=== PATIENT | female | born 2000 | race Hispanic/Latino ===

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

== ENCOUNTER 2023-05-01 22:39 | Emergency (ER) | payer SELFPAY ==
--- OUTSIDE RECORDS SUMMARY | 2023-05-01 22:48 | XMS REPORT | Continuity of Care Document ---
:2000 Author Organization [facility] t Address [address] [place] [address] [address] [place] [address] Care Team Providers Name Role Phone Laney Jonas Primary Care Physician [phone] UNKNOWN, ATTENDING Attending Clinician Unavailable Laney Jonas Attending Clinician [phone] LANEY MÉNDEZ Attending Clinician Unavailable Doctor Unassigned, [place] Attending Clinician Unavailable [facility], [facility] Attending Clinician Unavailable DESHAWN TONG Attending Clinician Unavailable Angelita Anderson MD, [place] Attending Clinician [phone] Deshawn Tong MD Attending Clinician BHARATI BRUSH Attending Clinician Unavailable Bharati Brush MD Attending Clinician Ultrasound, [facility] Attending Clinician Unavailable Mendoza Romo MD Attending Clinician MENDOZA ROMO Attending Clinician Unavailable Wilmer Post MD Attending Clinician [phone] WILMER POST Attending Clinician Unavailable BARB HOUSE Attending Clinician Unavailable CASSANDRA VALLADARES Attending Clinician Unavailable 5, [facility] Usg Room Attending Clinician Unavailable Brianna Montes MD Attending Clinician 1, [facility] Us Room Attending Clinician Unavailable Barb House MD Attending Clinician 2, [facility] Attending Clinician Unavailable Vanda ANAND Attending Clinician Unavailable Vanda Masters Attending Clinician FLO MARQUEZ Attending Clinician Unavailable MIRIAM CARRERO Attending Clinician Unavailable BARB HOUSE Admitting Clinician Unavailable DESHAWN TONG Admitting Clinician Unavailable Deshawn Tong MD Admitting Clinician BHARATI BRUSH Admitting Clinician Unavailable Bharati Brush MD Admitting Clinician MIRIAM CARRERO Admitting Clinician Unavailable Payers Payer Name Policy Type Policy Number Effective Date Expiration Date Formerly [facility] [id number] 2020 CHOICE MEDICAID 00:00:00 COMMERCIAL [id number] 2016 NON-CONTRACT 00:00:00 GENERIC MEDICAID PENDING PENDING 2020 00:00:00 Problems Condition Condition Condition Status Onset Resolution Last Treating Co mments Source Name Details Category Date Date Treatment Clinician Date Well woman Well woman Disease Active U nivers exam exam 3-28 ity of 00:00: [address] Routine Routine Disease Active Univers 3-07 it y [facility] [address] [place] [address] History of History of Disease Active U nivers tubal tubal 3-07 ity of ligation ligation 00:00: [address] Disease Active U nivers anemia anemia 2-07 ity of 00:00: [address] Iron Iron Disease Active Univers deficiency deficiency 2-07 it y of anemia anemia 00:00: [address] 35 weeks 35 weeks Disease Active Unive rs gestation gestation 1-12 ity of of of 00:00: [place] 00 [facility] GBS (group GBS (group Disease Active 2021-06 U nivers B B 1-14 ity of streptococ streptococ [place] cus[place] UTI cus) UTI 00 Medica l complicati complicati Br anch ng ng Anemia of Anemia of Disease Active 2021-06 Uni vers mother in mother in 1-14 ity of , , [place] antepartum antepartum 00 Il dical Branch Constipati Constipati Disease Active U nivers on in on [place] 8-16 [place] Multiparit Multiparit Disease Active U nivers y y 6-14 ity of 00:00: [place] 00 Medical Branch Supervisio Supervisio Disease Active U nivers n of n of 6-14 ity of high-risk high-risk 00:[place] Branch S/P S/P Disease Active Overview: Univer s 6-14 Formattin ity of section section 00:00: g of this [place] 00 note Medical might be Branch different from the original. Desires repeat Other Other Disease Active 2019-06 Overview: [facility] s depression depression 19 Formattin ity of 00:00: g of this [place] 00 note Medical might be Branch different from the original. 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 SARS-CoV-2 (event) 00:00:00 10:52:00 [facility] History of Social 2022-09-19 2022-09-19 Univers ity of function 00:00:00 00:00:00 [facility] Tobacco use and 2020-05-13 2020-05-13 Smokeless Universit y of exposure 00:00:00 00:00:00 tobacco non-user [facility] dical Branch Alcohol intake 2020-05-13 2020-05-13 Current drinker Unive rsity of 00:00:00 00:00:00 of alcohol [facility] (finding) Branch History SDOH 2020-05-13 2020-05-13 2 University o f Alcohol Frequency 00:00:00 00:00:00 [place] M edical Branch History SDOH 2020-05-13 2020-05-13 99 [place] o f Alcohol Std Drinks 00:00:00 00:00:00 [place] Medical Branch History SDOH 2020-05-13 2020-05-13 99 University o f Alcohol Binge 00:00:00 00:00:00 [place] Medic al Branch Alcohol Comment 2020-05-13 2020-05-13 socially, Universit y of 00:00:00 00:00:00 stopped for [place] [facility] Sex Assigned At [birth year] Universit y of 00:00:00 00:00:00 [facility] Smoking Status Start Date Stop Date Source Never smoked tobacco [facility] Medications Ordered Filled Start Stop Current Ordering Indication Dosage Frequency Signature Comments Components Source Medication Medication Date Date Medication? Clinician (SIG) Name Name metroNIDAZO 2022-0 Yes [id number] 500mg Take 1 Univers LE 500 mg 3-28 tablet by ity o f tablet 00:00: mouth in [place] [address] the Medical morning Branch and 1 tablet in the evening. metroNIDAZO 2022-0 Yes [id number] 500mg Take 1 Univers LE 500 mg 3-28 tablet by ity o f tablet 00:00: mouth in [place] [address] the Medical morning Branch and 1 tablet in the evening. metroNIDAZO 2022-0 Yes [id number] 500mg Take 1 Univers LE 500 mg 3-28 tablet by ity o f tablet 00:00: mouth in [place] the Medical morning Branch and 1 tablet in the evening. metroNIDAZO 3-0 Yes [id number] 500mg Take 1 Univers LE 500 mg 3-28 tablet by ity o f tablet 00:00: mouth in [place] the Medical morning Branch and 1 tablet in the evening. metroNIDAZO 3-0 Yes [id number] 500mg Take 1 Univers LE 500 mg 3-08 tablet by ity o f tablet 00:00: mouth in [place] the Medical morning Branch and 1 tablet in the evening. metroNIDAZO 2023-0 Yes [id number] 500mg Take 1 Univers LE 500 mg 3-08 tablet by ity o f tablet 00:00: mouth in [place] [address] the Medical morning Branch and 1 tablet in the evening. metroNIDAZO 2023-0 Yes [id number] 500mg Take 1 Univers LE 500 mg 3-08 tablet by ity o f tablet 00:00: mouth in [place] 00 the Medical morning Branch and 1 tablet in the evening. metroNIDAZO 2022-0 Yes [id number] 500mg Take 1 Univers LE 500 mg 3-08 tablet by ity o f tablet 00:00: mouth in [place] 00 the Medical morning Branch and 1 tablet in the evening. metroNIDAZO 0 Yes [id number] 500mg Take 1 Univers LE 500 mg 3-08 tablet by ity o f tablet 00:00: mouth in [place] 00 the Medical morning Branch and 1 tablet in the evening. metroNIDAZO Yes [id number] 500mg Take 1 Univers LE 500 mg 3-08 tablet by ity o f tablet 00:00: mouth in [place] 00 the Medical morning Branch and 1 tablet in the evening. metroNIDAZO Yes [id number] 500mg Take 1 Univers LE 500 mg 3-08 tablet by ity o f tablet 00:00: mouth in [place] 00 the Medical morning Branch and 1 tablet in the evening. fluconazole 2022- No [id number] 150mg Take 1 Univers (DIFLUCAN) 08-29-08 tablet by ity of 150 mg 00:00: 05:59 [place] tablet 00 :00 now for 1 Medical dose. Branch fluconazole 2022- No [id number] 150mg Take 1 Univers (DIFLUCAN) 08-29-08 tablet by ity of 150 mg 00:00: 05:59 [place] tablet 00 :00 now for 1 Medical dose. Satin docusate Yes 200mg 200 mg, Unive rs (COLACE) 08-01 Oral, ity of capsule 200 15:00: DAILY, [place] mg 00 First dose Medical on [facility] 08/01/22 at 0900, Until Discontinu ed, Routine docusate 2022- No 200mg 200 mg, Univ ers (COLACE) 08-01-08 Oral, ity of capsule 200 15:00: 00:18 DAILY, [place] mg 00 :25 First dose Medical on [facility] 08/01/22 at 0900, Until Discontinu ed, Routine Yes [id number] 1{tbl} Take 1 Univers vitamin 2-07 tablet by ity of w/FA tablet 00:00: mouth in [place] 00 the Medical morning. Branch docusate Yes [id number] 200mg Take 2 U nivers 100 mg 2-07 capsules ity of capsule 00:00: by mouth [place] 00 once daily Medical as needed Branch for Constipati on. ferrous Yes [id number] 325mg Take 1 Un adebayo sulfate 325 2-07 tablet by ity of mg (65 mg 00:00: [place] iron[place] 00 the Medical tablet morning Branch and 1 tablet in the evening. ibuprofen Yes [id number] 600mg Take 1 Univers 600 mg 2-07 tablet by ity of tablet 00:00: mouth [place] 00 every 6 Medical (six) Branch hours as needed (Pain). Take with food or milk. simethicone Yes 160mg 160 mg, Un adebayo (GAS RELIEF 2-07 Oral, ity of (SIMETHICON 00:00: PC+HS, [place] E[place] 00 First dose Medical chewable on Sun tablet 160 07/31/22 at mg 1800, Until Discontinu ed, Routine Yes [id number] 1{tbl} Take 1 Univers vitamin 2-07 tablet by ity of w/FA tablet 00:00: mouth in [place] 00 the Medical morning. Branch docusate Yes [id number] 200mg Take 2 U nivers 100 mg 2-07 capsules ity of capsule 00:00: by mouth [place] 00 once daily Medical as needed Branch for Constipati on. ferrous Yes [id number] 325mg Take 1 Un adebayo sulfate 325 2-07 tablet by ity of mg (65 mg 00:00: [place] iron[place] 00 the Medical tablet morning Branch and 1 tablet in the evening. ibuprofen Yes [id number] 600mg Take 1 Univers 600 mg 2-07 tablet by ity of tablet 00:00: mouth [place] 00 every 6 Medical (six) Branch hours as needed (Pain). Take with food or milk. Yes [id number] 1{tbl} Take 1 Univers vitamin 2-07 tablet by ity of w/FA tablet 00:00: mouth in [place] 00 the Medical morning. Branch docusate 0 Yes [id number] 200mg Take 2 U nivers 100 mg 2-07 capsules ity of capsule 00:00: by mouth [place] 00 once daily Medical as needed Branch for Constipati on. ferrous 2022-0 Yes [id number] 325mg Take 1 Un adebayo sulfate 325 2-07 tablet by ity of mg (65 mg 00:00: [place] iron[place] 00 the Medical tablet morning Branch and 1 tablet in the evening. ibuprofen 2022-0 Yes [id number] 600mg Take 1 Univers 600 mg 2-07 tablet by ity of tablet 00:00: mouth [place] 00 every 6 Medical (six) Branch hours as needed (Pain). Take with food or milk. 2022-0 Yes [id number] 1{tbl} Take 1 Univers vitamin 2-07 tablet by ity of w/FA tablet 00:00: mouth in [place] 00 the Medical morning. Branch docusate 0 Yes [id number] 200mg Take 2 U nivers 100 mg 2-07 capsules ity of capsule 00:00: by mouth [place] 00 once daily Medical as needed Branch for Constipati on. ferrous 0 Yes [id number] 325mg Take 1 Un adebayo sulfate 325 2-07 tablet by ity of mg (65 mg 00:00: [place] iron[place] 00 the Medical tablet morning Branch and 1 tablet in the evening. ibuprofen 2022-0 Yes [id number] 600mg Take 1 Univers 600 mg 2-07 tablet by ity of tablet 00:00: mouth [place] 00 every 6 Medical (six) Branch hours as needed (Pain). Take with food or milk. 2022-0 Yes [id number] 1{tbl} Take 1 Univers vitamin 2-07 tablet by ity of w/FA tablet 00:00: mouth in [place] 00 the Medical morning. Branch docusate 0 Yes [id number] 200mg Take 2 U nivers 100 mg 2-07 capsules ity of capsule 00:00: by mouth [place] 00 once daily Medical as needed Branch for Constipati on. ferrous 2022-0 Yes [id number] 325mg Take 1 Un adebayo sulfate 325 2-07 tablet by ity of mg (65 mg 00:00: [place] iron[place] 00 the Medical tablet morning Branch and 1 tablet in the evening. ibuprofen 2022-0 Yes [id number] 600mg Take 1 Univers 600 mg 2-07 tablet by ity of tablet 00:00: mouth [place] 00 every 6 Medical (six) Branch hours as needed (Pain). Take with food or milk. 2022-0 Yes [id number] 1{tbl} Take 1 Univers vitamin 2-07 tablet by ity of w/FA tablet 00:00: mouth in [place] 00 the Medical morning. Branch docusate 2022-0 Yes [id number] 200mg Take 2 U nivers 100 mg 2-07 capsules ity of capsule 00:00: by mouth [place] 00 once daily Medical as needed Branch for Constipati on. ferrous 2022-0 Yes [id number] 325mg Take 1 Un adebayo sulfate 325 2-07 tablet by ity of mg (65 mg 00:00: [place] iron[place] 00 the Medical tablet morning Branch and 1 tablet in the evening. ibuprofen 2022-0 Yes [id number] 600mg Take 1 Univers 600 mg 2-07 tablet by ity of tablet 00:00: mouth [place] 00 every 6 Medical (six) Branch hours as needed (Pain). Take with food or milk. 2022-0 Yes [id number] 1{tbl} Take 1 Univers vitamin 2-07 tablet by ity of w/FA tablet 00:00: mouth in [place] 00 the Medical morning. Branch docusate 2022-0 Yes [id number] 200mg Take 2 U nivers 100 mg 2-07 capsules ity of capsule 00:00: by mouth [place] 00 once daily Medical as needed Branch for Constipati on. ferrous 2022-0 Yes [id number] 325mg Take 1 Un adebayo sulfate 325 2-07 tablet by ity of mg (65 mg 00:00: [place] iron[place] 00 the Medical tablet morning Branch and 1 tablet in the evening. ibuprofen 2022-0 Yes [id number] 600mg Take 1 Univers 600 mg 2-07 tablet by ity of tablet 00:00: mouth [place] 00 every 6 Medical (six) Branch hours as needed (Pain). Take with food or milk. 2022-0 Yes [id number] 1{tbl} Take 1 Univers vitamin 2-07 tablet by ity of w/FA tablet 00:00: mouth in [place] 00 the Medical morning. Branch docusate Yes [id number] 200mg Take 2 U nivers 100 mg 2-07 capsules ity of capsule 00:00: by mouth [place] 00 once daily Medical as needed Branch for Constipati on. ferrous 2022-0 Yes [id number] 325mg Take 1 Un adebayo sulfate 325 2-07 tablet by ity of mg (65 mg 00:00: [place] iron[place] 00 the Medical tablet morning Branch and 1 tablet in the evening. ibuprofen 2022- Yes [id number] 600mg Take 1 Univers 600 mg 2-07 tablet by ity of tablet 00:00: mouth [place] 00 every 6 Medical (six) Branch hours as needed (Pain). Take with food or milk. 2022- No [id number] 1{tbl} Take 1 Univers vitamin 2-12 25-28 tablet by ity of w/FA tablet 00:00: 00:00 mouth in [place] 00 :00 the Medical morning. Branch docusate 2022- No [id number] 200mg Take 2 Univers 100 mg 2-07 -28 capsules ity of capsule 00:00: 00:00 by mouth [place] 00 :00 once daily Medical as needed Branch for Constipati on. ferrous 2022- No [id number] 325mg Take 1 U nivers sulfate 325 2-07 -28 tablet by it y of mg (65 mg 00:00: 00:00 mouth in [place] iron) 00 :00 the Medical tablet morning Branch and 1 tablet in the evening. ibuprofen 2022- No [id number] 600mg Take 1 Univers 600 mg 2-07 03-28 tablet by ity of tablet 00:00: 00:00 mouth [place] 00 :00 every 6 Medical (six) Branch hours as needed (Pain). Take with food or milk. 2022- No [id number] 1{tbl} Take 1 Univers vitamin 2-07 -28 tablet by ity of w/FA tablet 00:00: 00:00 mouth in [place] 00 :00 the Medical morning. Branch docusate 2022- No [id number] 200mg Take 2 Univers 100 mg 2-07 -28 capsules ity of capsule 00:00: 00:00 by mouth [place] 00 :00 once daily Medical as needed Branch for Constipati on. ferrous No [id number] 325mg Take 1 U nivers sulfate 325 08-01 tablet by it y of mg (65 mg 00:00: 00:00 mouth in [place] iron) 00 :00 the Medical tablet morning Branch and 1 tablet in the evening. ibuprofen No [id number] 600mg Take 1 Univers 600 mg 08-01 tablet by ity of tablet 00:00: 00:00 mouth [place] 00 :00 every 6 Medical (six) Branch hours as needed (Pain). Take with food or milk. 2022- No [id number] 1{tbl} Take 1 Univers vitamin 08-01 tablet by ity of w/FA tablet 00:00: 00:00 mouth in [place] 00 :00 the Medical morning. Branch docusate No [id number] 200mg Take 2 Univers 100 mg 08-01 capsules ity of capsule 00:00: 00:00 by mouth [place] 00 :00 once daily Medical as needed Branch for Constipati on. ferrous No [id number] 325mg Take 1 U nivers sulfate 325 08-01 tablet by it y of mg (65 mg 00:00: 00:00 mouth in [place] iron) 00 :00 the Medical tablet morning Branch and 1 tablet in the evening. ibuprofen No [id number] 600mg Take 1 Univers 600 mg 08-01 tablet by ity of tablet 00:00: 00:00 mouth [place] 00 :00 every 6 Medical (six) Branch hours as needed (Pain). Take with food or milk. HYDROcodone 2022- No [id number] 1{tbl} Take 1 U nivers -acetaminop 08-01 tablet by it y of hen 5-325 00:00: 05:59 mouth [place] mg tablet 00 :00 every 6 Medical (six) Branch hours as needed (Pain scale above 4) for up to 7 days. Do not exceed 3 grams of acetaminop hen in 24 hours. Indication s: acute pain HYDROcodone 2022- No [id number] 1{tbl} Take 1 U nivers -acetaminop 2-07 02-15 tablet by it y of hen 5-325 00:00: 05:59 mouth [place] mg tablet 00 :00 every 6 Medical (six) Branch hours as needed (Pain scale above 4) for up to 7 days. Do not exceed 3 grams of acetaminop hen in 24 hours. Indication s: acute pain HYDROcodone 2022- No [id number] 1{tbl} Take 1 U nivers -acetaminop 2-07 02-15 tablet by it y of hen 5-325 00:00: 05:59 mouth [place] mg tablet 00 :00 every 6 Medical (six) Branch hours as needed (Pain scale above 4) for up to 7 days. Do not exceed 3 grams of acetaminop hen in 24 hours. Indication s: acute pain HYDROcodone 2022- No [id number] 1{tbl} Take 1 U nivers -acetaminop 2-07 02-15 tablet by it y of hen 5-325 00:00: 05:59 mouth [place] mg tablet 00 :00 every 6 Medical (six) Branch hours as needed (Pain scale above 4) for up to 7 days. Do not exceed 3 grams of acetaminop hen in 24 hours. Indication s: acute pain HYDROcodone 2022- No [id number] 1{tbl} Take 1 U nivers -acetaminop 2-07 02-15 tablet by it y of hen 5-325 00:00: 05:59 mouth [place] mg tablet 00 :00 every 6 Medical (six) Branch hours as needed (Pain scale above 4) for up to 7 days. Do not exceed 3 grams of acetaminop hen in 24 hours. Indication s: acute pain simethicone 2022- No 160mg 160 mg, U nivers (GAS RELIEF 08-01 Oral, ity of (SIMETHICON 00:00: 00:18 PC+HS, [place] E)) 00 :25 First dose Medical chewable on Sun tablet 160 07/31/22 at mg 1800, Until Discontinu ed, Routine rho(D) Yes 300ug 300 mcg, Univer s immune 2-06 Intramuscu ity of globulin 20:08: lar, ONCE, [place] (RHOGAM) 39 For 1 Medical syringe 300 dose, Branch mcg Conditiona l, Routine rho(D) 2022-0 2022- No 300ug 300 mcg, Unive rs immune 2-06 02-08 Intramuscu ity of globulin 20:08: 00:18 [place]CE, [place] (RHOGAM) 39 :25 For 1 Medical syringe 300 dose, Branch mcg Conditiona l, Routine HYDROcodone 2022-0 Yes 2{tbl} 2 tablet, Univers -acetaminop 2-06 Oral, ity of hen (NORCO 20:08: Q6HPRN, [place] 5) 5-325 mg 32 Starting Medi merna tablet 2 on Sun Branch tablet 07/31/22 at 1408, Until Discontinu ed, Routine, Pain (scale 7-10), Alternate with Ibuprofen HYDROcodone 2022-0 Yes 1{tbl} 1 tablet, Univers -acetaminop 2-06 Oral, ity of hen (NORCO 20:08: Q6HPRN, [place] 5) 5-325 mg 32 Starting Medi merna tablet 1 on Sun Branch tablet 07/31/22 at 1408, Until Discontinu ed, Routine, Pain (scale 4-6), Alternate with Ibuprofen ibuprofen 2022-0 Yes 600mg 600 mg, Univ ers (IBU) 2-06 Oral, ity of tablet 600 20:08: Q6HPRN, [place] mg 32 Starting Medical on Sun Branch 07/31/22 at 1408, Until Discontinu ed, Routine, Pain (scale 1-3) diphenhydrA 202-0 Yes 25mg 25 mg, [facility] ers MINE 2-06 Slow IV ity of (BENADRYL) 20:08: [place], [place] injection 32 Q6HPRN, Medical 25 mg Starting Branch on Sun07/31/22 at 1408, Until Discontinu ed, Routine, Itching diphenhydrA 2023-0 Yes 25mg 25 mg, [facility] ers MINE 2-06 Oral, ity of (BENADRYL) 20:08: Q6HPRN, [place] tablet 25 32 Starting Medica l mg on Sun Branch 07/31/22 at 1408, Until Discontinu ed, Routine, Sleep, Itching ondansetron 2022-0 Yes 4mg 4 mg, Slow Univers (ZOFRAN 2-06 IV Push, ity of (PF)) 20:08: Q8HPRN, [place] injection 4 32 Starting Medi merna mg on Mon Branch 07/31/22 at 1408, Until Discontinu ed, Routine, Nausea and Vomiting (N/V) bisacodyL 2022-0 Yes 10mg 10 mg, Univer s (DULCOLAX) 2-06 Rectal, ity of suppository 20:08: QDAILYPRN, [place] 10 mg 32 Starting Medical on Sun Branch 07/31/22 at 1408, Until Discontinu ed, Routine, Constipati on magnesium 2022-0 Yes 30mL 30 mL, Univer s hydroxide 2-06 Oral, ity of (MILK OF 20:08: QDAILYPRN, [place] MAGNESIA) 32 Starting Medica l 400 mg/5 mL on Sun Branch suspension 07/31/22 at 30 mL 1408, Until Discontinu ed, Routine, Constipati on lactated 2022-0 Yes 1000mL at 125 Unive rs ringers IV 2-06 mL/hr, ity of infusion 20:08: 1,000 mL, [place] 1,000 mL 32 IV Medical Infusion, Branch PRN, 1 dose, Starting on Sun07/31/22 at 1408, Until Discontinu ed, Routine HYDROcodone 2022-0 2022- No 2{tbl} 2 tablet, Univers -acetaminop 2-08 Oral, ity of hen (NORCO 20:08: 00:18 Q6HPRN, [place] 5) 5-325 mg 32 :25 Starting Medi merna tablet 2 on Sun Branch tablet 07/31/22 at 1408, Until Sun08/01/22 at 1818, Routine, Pain (scale 7-10), Alternate with Ibuprofen HYDROcodone 2022-0 2022- No 1{tbl} 1 tablet, Univers -acetaminop 2 02-08 Oral, ity of hen (NORCO 20:08: 00:18 Q6HPRN, [place] 5) 5-325 mg 32 :25 Starting Medi merna tablet 1 on Sun Branch tablet 07/31/22 at 1408, Until Sun08/01/22 at 1818, Routine, Pain (scale 4-6), Alternate with Ibuprofen ibuprofen 2022-0 2022- No 600mg 600 mg, Uni vers (IBU) 2- 02-08 Oral, ity of tablet 600 20:08: 00:18 Q6HPRN, [place] mg 32 :25 Starting Medical on Sun07/31/22 at 1408, Until Sun08/01/22 at 1818, Routine, Pain (scale 1-3) diphenhydrA 2022- No 25mg 25 mg, Uni vers MINE 07-31 Slow IV ity of (BENADRYL) 20:08: 00:18 Push, [place] injection 32 :25 Q6HPRN, Medical 25 mg Starting Branch on Sun07/31/22 at 1408, Until Sun08/01/22 at 1818, Routine, Itching diphenhydrA 2022- No 25mg 25 mg, Uni vers MINE 07-31 Oral, ity of (BENADRYL) 20:08: 00:18 Q6HPRN, [place] tablet 25 32 :25 Starting Medica l mg on Sun07/31/22 at 1408, Until Sun08/01/22 at 1818, Routine, Sleep, Itching ondansetron 2022- No 4mg 4 mg, Slow Univers (ZOFRAN 07-31 IV Push, ity of (PF)) 20:08: 00:18 Q8HPRN, [place] injection 4 32 :25 Starting Medi merna mg on Sun07/31/22 at 1408, Until Sun08/01/22 at 1818, Routine, Nausea and Vomiting (N/V) bisacodyL 2022- No 10mg 10 mg, Unive rs (DULCOLAX) 07-31 Rectal, ity o f suppository 20:08: 00:18 QDAILYPRN, [place] 10 mg 32 :25 Starting Medical on Sun07/31/22 at 1408, Until Sun08/01/22 at 1818, Routine, Constipati on magnesium 2022- No 30mL 30 mL, Unive rs hydroxide 07-31 Oral, ity of (MILK OF 20:08: 00:18 QDAILYPRN, [place] MAGNESIA) 32 :25 Starting Medica l 400 mg/5 mL on Mon Branch suspension 07/31/22 at 30 mL 1408, Until Tu08/01/22 at 1818, Routine, Constipati on lactated No 1000mL at 125 Univ ers ringers IV 07-31-08 mL/hr, ity of infusion 20:08: 00:18 1,000 mL, [place] 1,000 mL 32 :25 IV Medical Infusion, Branch PRN, 1 dose, Starting on Sun07/31/22 at 1408, Until Sun08/01/22 at 1818, Routine FENTanyl PF No 25ug 25 mcg, Un adebayo (SUBLIMAZE 07-31- Slow IV ity o f (PF)) 19:45: 19:03 Push, [place] injection 00 :00 ONCE, 1 Medical 25 mcg dose, On Branch 07/31/22 at 1345, Routine morpHINE 30 Yes Patient Uni vers mg/30 mL - [place] ity of (fixed 19:15: Dose: 1 [place] dose) CUSHION STUFFER 00 mg
Lock Medi merna injection out Branch Interval: 10 Minutes
Basal Rate: 0 mg/hr
F our Hour Dose Limit: 32 mg
Intr avenous, 30 mL, CONTINUOUS , Starting on Sun07/31/22 at 1315, Until Discontinu ed morpHINE 30 2022- No Patient Un adebayo mg/30 mL 07-31- Bolus ity of (fixed 19:15: 00:18 Dose: 1 [place] dose) CUSHION STUFFER 00 :25 mg
Lock Medi merna injection out Branch Interval: 10 Minutes
Basal Rate: 0 mg/hr
F our Hour Dose Limit: 32 mg
Intr avenous, 30 mL, CONTINUOUS , Starting on Sun07/31/22 at 1315, Until Sun08/01/22 at 1818 ondansetron No 4mg 4 mg, Slow Univers (ZOFRAN 07-31 IV Push, ity of (PF)) 17:45: 18:15 ONCE, 1 [place] injection 4 00 :00 dose, On Medi merna mg 07/31/22 Branch at 1145, Routine ketorolac No 30mg 30 mg, [facility] (TORADOL) 07-31 Slow IV ity of injection 17:35: 18:15 Push, PRN, [place] 30 mg 01 :00 1 dose, Medical Starting Branch on Sun07/31/22 at 1135, Until Sun08/02/22 at 2359, Routine, Pain (scale 7-10) nalbuphine No 5mg 5 mg, [facility] (NUBAIN) 07-31 Intravenou ity of injection 5 17:35: 18:18 s, PRN, 1 [place] mg 01 :00 dose, Medical Starting Branch on Sun07/31/22 at 1135, Until Discontinu ed, Routine, itching acetaminoph 2022- No 650mg 650 mg, U nivers en 07-31 Oral, ity of (TYLENOL) 14:45: 15:33 ONCE, 1 [place] tablet 650 00 :00 dose, On Medic al mg Sun07/31/22 Branch at 0845, Routine lactated 2022- No 1000mL at 125 Univ ers ringers IV 07-31 mL/hr, ity of infusion 14:45: 20:08 1,000 mL, [place] 1,000 mL 00 :37 IV Medical Infusion, Branch CONTINUOUS , Starting on Sun07/31/22 at 0845, Until Sun07/31/22 at 1408, Routine lactated 2022- No 500mL at 999 Unive rs ringers IV 07-31- mL/hr, 500 it y of infusion 14:45: 15:04 mL, IV [place] 500 mL 00 :44 Infusion, Medical ONCE, 1 Branch dose, On Sun07/31/22 at 0845, Routine ceFAZolin 2022- No 2000mg 2,000 mg, [facility] (ANCEF) 07-31 IV ity of 2,000 mg in 14:30: 20:08 Piggyback, [place] NaCl 0.9% 27 :37 O.R. Medical (NS) 100 mL HOLDING Branc h MINI-BAG ONCE, Starting on Sun07/31/22 at 0830, Until Sun07/31/22 at 1408, Administer over 30 Minutes, 100 mL
Reas on for Anti-Infec tive: Surgical Prophylaxi s
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
Duration of therapy: within 24 hours of surgery sodium 2022- No 30mL 30 mL, [facility] citrate-cit 07-31 Oral, ity of [place] acid 14:30: 16:16 PRE-PROCED [place] (BICITRA) 27 :00 URE ONCE, Medic al 500-334 1 dose, Branch mg/5 mL Starting solution 30 on Sun mL 07/31/22 at 0830, Until 07/31/22 at 1016, Routine, Surgery/Pr ocedure 2022- No Take by [facility] rs vit 07-31 mouth. ity of no.124/iron 12:17: 00:00 [place] /folic 52 :00 Medical ( Branch VITAMIN ORAL) 2022- No Take by [facility] rs vit 07-31 mouth. ity of no.124/iron 12:17: 00:00 [place] /folic 52 :00 Medical ( Branch VITAMIN ORAL) ferrous 2022-0 Yes [id number] 325mg Take 1 Un adebayo sulfate 325 1-23 tablet by ity of mg (65 mg 00:00: mouth [place] iron) 00 the Medical tablet morning Branch and 1 tablet in the evening. ascorbic 2022- Yes [id number] 500mg Take 1 U nivers acid, 1-23 tablet by ity of vitamin C, 00:00: mouth in [place] 500 mg 00 the Medical tablet morning Branch and 1 tablet at noon and 1 tablet in the evening. ferrous 2022- Yes [id number] 325mg Take 1 Un adebayo sulfate 325 1-23 tablet by ity of mg (65 mg 00:00: mouth [place] iron) 00 the Medical tablet morning Branch and 1 tablet in the evening. ascorbic 2022-0 Yes [id number] 500mg Take 1 U nivers acid, 1-23 tablet by ity of vitamin C, 00:00: mouth in [place] 500 mg 00 the Medical tablet morning Branch and 1 tablet at noon and 1 tablet in the evening. ferrous 2022-0 Yes [id number] 325mg Take 1 Un adebayo sulfate 325 1-23 tablet by ity of mg (65 mg 00:00: mouth [place] iron) 00 the Medical tablet morning Branch and 1 tablet in the evening. ascorbic Yes [id number] 500mg Take 1 U nivers acid, 1-23 tablet by ity of vitamin C, 00:00: mouth in [place] 500 mg 00 the Medical tablet morning Branch and 1 tablet at noon and 1 tablet in the evening. ferrous Yes [id number] 325mg Take 1 Un adebayo sulfate 325 -23 tablet by ity of mg (65 mg 00:00: mouth [place] iron) 00 the Medical tablet morning Branch and 1 tablet in the evening. ascorbic Yes [id number] 500mg Take 1 U nivers acid, 1-23 tablet by ity of vitamin C, 00:00: mouth in [place] 500 mg 00 the Medical tablet morning Branch and 1 tablet at noon and 1 tablet in the evening. fluconazole 2022- No [id number] 150mg Take 1 [facility] (DIFLUCAN) 07-13 tablet by ity of 150 mg 00:00: 05:59 mouth [place] tablet 00 :00 now for 1 Medical dose. Branch fluconazole 2022- No [id number] 150mg Take 1 [facility] (DIFLUCAN) 07-13 tablet by ity of 150 mg 00:00: 05:59 mouth once [place] tablet 00 :00 now for 1 Medical dose. Branch acetaminoph 2022- No 650mg 650 mg, U nivers en 07-07 Oral, ONCE ity of (TYLENOL) 00:15: 23:30 NOW, 1 [place] tablet 650 00 :00 dose, On Medic al mg Joelle Branch 07/06/22 at 1815, Routine fluconazole 2022- No [id number] 150mg Take 1 [facility] (DIFLUCAN) 07-07 tablet by ity of 150 mg 00:00: 05:59 mouth once [place] tablet 00 :00 now for 1 Medical dose. Branch fluconazole 2022- No [id number] 150mg Take 1 [facility] (DIFLUCAN) 07-07 tablet by ity of 150 mg 00:00: 05:59 mouth once [place] tablet 00 :00 now for 1 Medical dose. Branch fluconazole 2022- No [id number] 150mg Take 1 [facility] (DIFLUCAN) 07-07 tablet by ity of 150 mg 00:00: 05:59 mouth once [place] tablet 00 :00 now for 1 Medical dose. Branch fluconazole 2022- No [id number] 150mg Take 1 [facility] (DIFLUCAN) 07-07 tablet by ity of 150 mg 00:00: 05:59 mouth once [place] tablet 00 :00 now for 1 Medical dose. Branch fluconazole 2022- No [id number] 150mg Take 1 [facility] (DIFLUCAN) 07-07 tablet by ity of 150 mg 00:00: 05:59 mouth once [place] tablet 00 :00 now for 1 Medical dose. Branch Yes Take by [facility] vit 1-12 mouth. ity of no.124/iron 17:39: [place] /folic 45 Medical ( Branch VITAMIN ORAL) Yes Take by [facility] vit 1-12 mouth. ity of no.124/iron 17:39: [place] /folic 45 Medical ( Branch VITAMIN ORAL) Yes Take by [facility] vit 1-12 mouth. ity of no.124/iron 17:39: [place] /folic 45 Medical ( Branch VITAMIN ORAL) Yes Take by [facility] vit 1-12 mouth. ity of no.124/iron 17:39: [place] /folic 45 Medical ( Branch VITAMIN ORAL) Yes Take by [employer] [facility] vit 1-12 mouth. ity of no.124/iron 17:39: [place] /folic 45 Medical ( Branch VITAMIN ORAL) Yes Take by [facility] vit 1-12 mouth. ity of no.124/iron 17:39: [place] /folic 45 Medical ( Branch VITAMIN ORAL) Yes Take by [facility] vit 1-12 mouth. ity of no.124/iron 17:39: [place] /folic 45 Medical ( Branch VITAMIN ORAL) Yes Take by [facility] vit 1-12 mouth. ity of no.124/iron 17:39: [place] /folic 45 Medical ( Branch VITAMIN ORAL) 2023-0 Yes Take by [facility] s vit 1-12 mouth. ity of no.124/iron 17:39: [place] /folic 45 Medical ( Branch VITAMIN ORAL) Yes Take by [employer] [place] vit 1-12 mouth. ity of no.124/iron 17:39: [place] /folic 45 Medical ( Branch VITAMIN ORAL) Yes Take by [employer] [place] vit 1-12 mouth. ity of no.124/iron 17:39: [place] /folic 45 Medical ( Branch VITAMIN ORAL) Yes Take by [employer] [place] vit 1-12 mouth. ity of no.124/iron 17:39: [place] /folic 45 Medical ( Branch VITAMIN ORAL) Yes Take by [employer] [place] vit 1-12 mouth. ity of no.124/iron 17:39: [place] /folic 45 Medical ( Branch VITAMIN ORAL) clotrimazol 2022- No [id number] Apply to Univers e 1 % 1-20 area(s) at ity of topical 00:00: 05:59 bedtime [place] cream 00 :00 for 7 Medical days. Branch clotrimazol 2022- No [id number] Apply to Univers e 1 % 07-06-20 area(s) at ity of topical 00:00: 05:59 bedtime [place] cream 00 :00 for 7 Medical days. Branch clotrimazol 2022- No [id number] Apply to Univers e 1 % 07-06-20 area(s) at ity of topical 00:00: 05:59 bedtime [place] cream 00 :00 for 7 Medical days. Branch clotrimazol 2022- No [id number] Apply to Univers e 1 % -05 25-20 area(s) at ity of topical 00:00: 05:59 bedtime [place] cream 00 :00 for 7 Medical days. Branch clotrimazol 2022- No [id number] Apply to Univers e 1 % 1-05 25-20 area(s) at ity of topical 00:00: 05:59 bedtime [place] cream 00 :00 for 7 Medical days. Branch clotrimazol 2022- No [id number] Apply to Univers e 1 % 1-12 01-20 area(s) at ity of topical 00:00: 05:59 bedtime [place] cream 00 :00 for 7 Medical days. Branch clotrimazol 2022- No [id number] Apply to Univers e 1 % 07-06 area(s) at ity of topical 00:00: 05:59 bedtime [place] cream 00 :00 for 7 Medical days. Branch ampicillin 2021-06- No [id number] 500mg Take 1 [facility] 500 mg 07-31 capsule by ity of capsule 00:00: 05:59 mouth 4 [place] 00 :00 (four) Medical times Satin daily for 10 days. ferrous 2021-06 Yes [id number] 325mg Take 1 Un adebayo sulfate 325 1-14 tablet by ity of mg (65 mg 00:00: mouth [place] iron) 00 the Medical tablet morning Branch and 1 tablet in the evening. ascorbic 2021-06 Yes [id number] 500mg Take 1 U nivers acid, 1-14 tablet by ity of vitamin C, 00:00: mouth in [place] 500 mg 00 the Medical tablet morning Branch and 1 tablet at noon and 1 tablet in the evening. ferrous 2021-06 Yes [id number] 325mg Take 1 Un adebayo sulfate 325 1-14 tablet by ity of mg (65 mg 00:00: mouth [place] iron) 00 the Medical tablet morning Branch and 1 tablet in the evening. ascorbic 2021-06 Yes [id number] 500mg Take 1 U nivers acid, 1-14 tablet by ity of vitamin C, 00:00: mouth in [place] 500 mg 00 the Medical tablet morning Branch and 1 tablet at noon and 1 tablet in the evening. ferrous 2021-06 Yes [id number] 325mg Take 1 Un adebayo sulfate 325 1-14 tablet by ity of mg (65 mg 00:00: mouth [place] iron) 00 the Medical tablet morning Branch and 1 tablet in the evening. ascorbic 2021-06 Yes [id number] 500mg Take 1 U nivers acid, 1-14 tablet by ity of vitamin C, 00:00: mouth in [place] 500 mg 00 the Medical tablet morning Branch and 1 tablet at noon and 1 tablet in the evening. ferrous 2021-06 Yes [id number] 325mg Take 1 Un adebayo sulfate 325 1-14 tablet by ity of mg (65 mg 00:00: mouth [place] iron) 00 the Medical tablet morning Branch and 1 tablet in the evening. ascorbic 2021-06 Yes [id number] 500mg Take 1 U nivers acid, 1-14 tablet by ity of vitamin C, 00:00: mouth in [place] 500 mg 00 the Medical tablet morning Branch and 1 tablet at noon and 1 tablet in the evening. ferrous 2021-06 Yes [id number] 325mg Take 1 Un adebayo sulfate 325 1-14 tablet by ity of mg (65 mg 00:00: mouth [place] iron) 00 the Medical tablet morning Branch and 1 tablet in the evening. ascorbic 2021-06 Yes [id number] 500mg Take 1 U nivers acid, 1-14 tablet by ity of vitamin C, 00:00: mouth in [place] 500 mg 00 the Medical tablet morning Branch and 1 tablet at noon and 1 tablet in the evening. ferrous 2021-06 Yes [id number] 325mg Take 1 Un adebayo sulfate 325 1-14 tablet by ity of mg (65 mg 00:00: mouth [place] iron) 00 the Medical tablet morning Branch and 1 tablet in the evening. ascorbic 2021-06 Yes [id number] 500mg Take 1 U nivers acid, 1-14 tablet by ity of vitamin C, 00:00: mouth in [place] 500 mg 00 the Medical tablet morning Branch and 1 tablet at noon and 1 tablet in the evening. ferrous 2021-06 Yes [id number] 325mg Take 1 Un adebayo sulfate 325 1-14 tablet by ity of mg (65 mg 00:00: mouth [place] iron) 00 the Medical tablet morning Branch and 1 tablet in the evening. ascorbic 2021-06 Yes [id number] 500mg Take 1 U nivers acid, 1-14 tablet by ity of vitamin C, 00:00: mouth in [place] 500 mg 00 the Medical tablet morning Branch and 1 tablet at noon and 1 tablet in the evening. ferrous 2021-06 Yes [id number] 325mg Take 1 Un adebayo sulfate 325 1-14 tablet by ity of mg (65 mg 00:00: mouth [place] iron) 00 the Medical tablet morning Branch and 1 tablet in the evening. ascorbic 2021-06 Yes [id number] 500mg Take 1 U nivers acid, 1-14 tablet by ity of vitamin C, 00:00: mouth in [place] 500 mg 00 the Medical tablet morning Branch and 1 tablet at noon and 1 tablet in the evening. ferrous 2021-06 Yes [id number] 325mg Take 1 Un adebayo sulfate 325 1-14 tablet by ity of mg (65 mg 00:00: mouth [place] iron) 00 the Medical tablet morning Branch and 1 tablet in the evening. ascorbic 2021-06 Yes [id number] 500mg Take 1 U nivers acid, 1-14 tablet by ity of vitamin C, 00:00: mouth in [place] 500 mg 00 the Medical tablet morning Branch and 1 tablet at noon and 1 tablet in the evening. ferrous 2021-06 Yes [id number] 325mg Take 1 Un adebayo sulfate 325 1-14 tablet by ity of mg (65 mg 00:00: mouth [place] iron[place] 00 the Medical tablet morning Branch and 1 tablet in the evening. ascorbic 2021-06 Yes [id number] 500mg Take 1 U nivers acid, 1-14 tablet by ity of vitamin C, 00:00: mouth in [place] 500 mg 00 the Medical tablet morning Branch and 1 tablet at noon and 1 tablet in the evening. ferrous 2021-06 Yes [id number] 325mg Take 1 Un adebayo sulfate 325 1-14 tablet by ity of mg (65 mg 00:00: mouth [place] iron) 00 the Medical tablet morning Branch and 1 tablet in the evening. ascorbic 2021-06 Yes [id number] 500mg Take 1 U nivers acid, 1-14 tablet by ity of vitamin C, 00:00: mouth in [place] 500 mg 00 the Medical tablet morning Branch and 1 tablet at noon and 1 tablet in the evening. ferrous 2021-06 Yes [id number] 325mg Take 1 Un adebayo sulfate 325 1-14 tablet by ity of mg (65 mg 00:00: mouth [place] iron) 00 the Medical tablet morning Branch and 1 tablet in the evening. ascorbic 2021-06 Yes [id number] 500mg Take 1 U nivers acid, 1-14 tablet by ity of vitamin C, 00:00: mouth in [place] 500 mg 00 the Medical tablet morning Branch and 1 tablet at noon and 1 tablet in the evening. ferrous 2021-06 Yes [id number] 325mg Take 1 Un adebayo sulfate 325 1-14 tablet by ity of mg (65 mg 00:00: mouth [place] iron) 00 the Medical tablet morning Branch and 1 tablet in the evening. ascorbic 2021-06 Yes [id number] 500mg Take 1 U nivers acid, 1-14 tablet by ity of vitamin C, 00:00: mouth in [place] 500 mg 00 the Medical tablet morning Branch and 1 tablet at noon and 1 tablet in the evening. ferrous 2021-06 Yes [id number] 325mg Take 1 Un adebayo sulfate 325 1-14 tablet by ity of mg (65 mg 00:00: mouth [place] iron) 00 the Medical tablet morning Branch and 1 tablet in the evening. ascorbic 2021-06 Yes [id number] 500mg Take 1 U nivers acid, 1-14 tablet by ity of vitamin C, 00:00: mouth in [place] 500 mg 00 the Medical tablet morning Branch and 1 tablet at noon and 1 tablet in the evening. ferrous 2021-06 Yes [id number] 325mg Take 1 Un adebayo sulfate 325 1-14 tablet by ity of mg (65 mg 00:00: mouth [place] iron) 00 the Medical tablet morning Branch and 1 tablet in the evening. ascorbic 2021-06 Yes [id number] 500mg Take 1 U nivers acid, 1-14 tablet by ity of vitamin C, 00:00: mouth in [place] 500 mg 00 the Medical tablet morning Branch and 1 tablet at noon and 1 tablet in the evening. ferrous 2021-06 Yes [id number] 325mg Take 1 Un adebayo sulfate 325 1-14 tablet by ity of mg (65 mg 00:00: mouth [place] iron[place] 00 the Medical tablet morning Branch and 1 tablet in the evening. ascorbic 2021-06 Yes [id number] 500mg Take 1 U nivers acid, 1-14 tablet by ity of vitamin C, 00:00: mouth in [place] 500 mg 00 the Medical tablet morning Branch and 1 tablet at noon and 1 tablet in the evening. ferrous 2021-06 Yes [id number] 325mg Take 1 Un adebayo sulfate 325 1-14 tablet by ity of mg (65 mg 00:00: mouth [place] iron) 00 the Medical tablet morning Branch and 1 tablet in the evening. ascorbic 2021-06 Yes [id number] 500mg Take 1 U nivers acid, 1-14 tablet by ity of vitamin C, 00:00: mouth in [place] 500 mg 00 the Medical tablet morning Branch and 1 tablet at noon and 1 tablet in the evening. ferrous 2021-06 Yes [id number] 325mg Take 1 Un adebayo sulfate 325 1-14 tablet by ity of mg (65 mg 00:00: mouth [place] iron) 00 the Medical tablet morning Branch and 1 tablet in the evening. ascorbic 2021-06 Yes [id number] 500mg Take 1 U nivers acid, 1-14 tablet by ity of vitamin C, 00:00: mouth in [place] 500 mg 00 the Medical tablet morning Branch and 1 tablet at noon and 1 tablet in the evening. ferrous 2021-06 Yes [id number] 325mg Take 1 Un adebayo sulfate 325 1-14 tablet by ity of mg (65 mg 00:00: mouth [place] iron) 00 the Medical tablet morning Branch and 1 tablet in the evening. ascorbic 2021-06 Yes [id number] 500mg Take 1 U nivers acid, 1-14 tablet by ity of vitamin C, 00:00: mouth in [place] 500 mg 00 the Medical tablet morning Branch and 1 tablet at noon and 1 tablet in the evening. ferrous 2021-06 Yes [id number] 325mg Take 1 Un adebayo sulfate 325 1-14 tablet by ity of mg (65 mg 00:00: mouth [place] iron) 00 the Medical tablet morning Branch and 1 tablet in the evening. ascorbic 2021-06 Yes [id number] 500mg Take 1 U nivers acid, 1-14 tablet by ity of vitamin C, 00:00: mouth in [place] 500 mg 00 the Medical tablet morning Branch and 1 tablet at noon and 1 tablet in the evening. ferrous 2021-06 Yes [id number] 325mg Take 1 Un adebayo sulfate 325 1-14 tablet by ity of mg (65 mg 00:00: mouth [place] iron) 00 the Medical tablet morning Branch and 1 tablet in the evening. ascorbic 2021-06 Yes [id number] 500mg Take 1 U nivers acid, 1-14 tablet by ity of vitamin C, 00:00: mouth in [place] 500 mg 00 the Medical tablet morning Branch and 1 tablet at noon and 1 tablet in the evening. ferrous 2021-06 Yes [id number] 325mg Take 1 Un adebayo sulfate 325 1-14 tablet by ity of mg (65 mg 00:00: mouth [place] iron) 00 the Medical tablet morning Branch and 1 tablet in the evening. ascorbic 2021-06 Yes [id number] 500mg Take 1 U nivers acid, 1-14 tablet by ity of vitamin C, 00:00: mouth in [place] 500 mg 00 the Medical tablet morning Branch and 1 tablet at noon and 1 tablet in the evening. ferrous 2021-06 Yes [id number] 325mg Take 1 Un adebayo sulfate 325 1-14 tablet by ity of mg (65 mg 00:00: mouth [place] iron) 00 the Medical tablet morning Branch and 1 tablet in the evening. ascorbic 2021-06 Yes [id number] 500mg Take 1 U nivers acid, 1-14 tablet by ity of vitamin C, 00:00: mouth in [place] 500 mg 00 the Medical tablet morning Branch and 1 tablet at noon and 1 tablet in the evening. ferrous 2021-06 Yes [id number] 325mg Take 1 Un adebayo sulfate 325 1-14 tablet by ity of mg (65 mg 00:00: mouth [place] iron) 00 the Medical tablet morning Branch and 1 tablet in the evening. ascorbic 2021-06 Yes [id number] 500mg Take 1 U nivers acid, 1-14 tablet by ity of vitamin C, 00:00: mouth in [place] 500 mg 00 the Medical tablet morning Branch and 1 tablet at noon and 1 tablet in the evening. ferrous 2021-06 Yes [id number] 325mg Take 1 Un adebayo sulfate 325 1-14 tablet by ity of mg (65 mg 00:00: mouth [place] iron) 00 the Medical tablet morning Branch and 1 tablet in the evening. ascorbic 2021-06 Yes [id number] 500mg Take 1 U nivers acid, 1-14 tablet by ity of vitamin C, 00:00: mouth in [place] 500 mg 00 the Medical tablet morning Branch and 1 tablet at noon and 1 tablet in the evening. ferrous 2021-06 Yes [id number] 325mg Take 1 Un adebayo sulfate 325 1-14 tablet by ity of mg (65 mg 00:00: mouth in [place] iron) 00 the Medical tablet morning Branch and 1 tablet in the evening. ascorbic 2021-06 Yes [id number] 500mg Take 1 U nivers acid, 1-14 tablet by ity of vitamin C, 00:00: mouth in [place] 500 mg 00 the Medical tablet morning Branch and 1 tablet at noon and 1 tablet in the evening. ferrous 2021-06 Yes [id number] 325mg Take 1 Un adebayo sulfate 325 1-14 tablet by ity of mg (65 mg 00:00: mouth in [place] iron) 00 the Medical tablet morning Branch and 1 tablet in the evening. ascorbic 2021-06 Yes [id number] 500mg Take 1 U nivers acid, 1-14 tablet by ity of vitamin C, 00:00: mouth in [place] 500 mg 00 the Medical tablet morning Branch and 1 tablet at noon and 1 tablet in the evening. ferrous 2021-06 Yes [id number] 325mg Take 1 Un adebayo sulfate 325 1-14 tablet by ity of mg (65 mg 00:00: mouth in [place] iron) 00 the Medical tablet morning Branch and 1 tablet in the evening. ascorbic 2021-06 Yes [id number] 500mg Take 1 U nivers acid, 1-14 tablet by ity of vitamin C, 00:00: mouth in [place] 500 mg 00 the Medical tablet morning Branch and 1 tablet at noon and 1 tablet in the evening. ferrous 2021-06 Yes [id number] 325mg Take 1 Un adebayo sulfate 325 1-14 tablet by ity of mg (65 mg 00:00: mouth [place] iron) 00 the Medical tablet morning Branch and 1 tablet in the evening. ascorbic 2021-06 Yes [id number] 500mg Take 1 U nivers acid, 1-14 tablet by ity of vitamin C, 00:00: mouth in [place] 500 mg 00 the Medical tablet morning Branch and 1 tablet at noon and 1 tablet in the evening. ferrous 2021-06 Yes [id number] 325mg Take 1 Un adebayo sulfate 325 1-14 tablet by ity of mg (65 mg 00:00: mouth [place] iron[place] 00 the Medical tablet morning Branch and 1 tablet in the evening. ascorbic 2021-06 Yes [id number] 500mg Take 1 U nivers acid, 1-14 tablet by ity of vitamin C, 00:00: mouth in [place] 500 mg 00 the Medical tablet morning Branch and 1 tablet at noon and 1 tablet in the evening. ferrous 2021-06- No [id number] 325mg Take 1 U nivers sulfate 325 07-08- tablet by it y of mg (65 mg 00:00: 00:00 mouth in [place] iron) 00 :00 the Medical tablet morning Branch and 1 tablet in the evening. ascorbic 2021-06- No [id number] 500mg Take 1 [facility] acid, 07-08- tablet by ity of vitamin C, 00:00: 00:00 mouth in [place] 500 mg 00 :00 the Medical tablet morning Branch and 1 tablet at noon and 1 tablet in the evening. ferrous 2021-06- No [id number] 325mg Take 1 U nivers sulfate 325 07-08 tablet by it y of mg (65 mg 00:00: 00:00 mouth in [place] iron) 00 :00 the Medical tablet morning Branch and 1 tablet in the evening. ascorbic 2021-06- No [id number] 500mg Take 1 [facility] acid, 07-08 tablet by ity of vitamin C, 00:00: 00:00 mouth in [place] 500 mg 00 :00 the Medical tablet morning Branch and 1 tablet at noon and 1 tablet in the evening. ampicillin 2021-06- No [id number] 500mg Take 1 [facility] 500 mg 1-14 11-25 capsule by ity of capsule 00:00: 05:59 mouth 4 [place] 00 :00 (four) Medical times Branch daily for 10 days. ampicillin 2021-06- No [id number] 500mg Take 1 [facility] 500 mg 1-14 11-25 capsule by ity of capsule 00:00: 05:59 mouth 4 [place] 00 :00 (four) Medical times Branch daily for 10 days. ampicillin 2021-06- No [id number] 500mg Take 1 [facility] 500 mg 1-14 11-25 capsule by ity of capsule 00:00: 05:59 mouth 4 [place] 00 :00 (four) Medical times Branch daily for 10 days. ampicillin 2021-06- No [id number] 500mg Take 1 [facility] 500 mg 1-14 11-25 capsule by ity of capsule 00:00: 05:59 mouth 4 [place] 00 :00 (four) Medical times Branch daily for 10 days. ampicillin 2021-06- No [id number] 500mg Take 1 [facility] 500 mg 1-14 11-25 capsule by ity of capsule 00:00: 05:59 mouth 4 [place] 00 :00 (four) Medical times Branch daily for 10 days. ampicillin 2021-06- No [id number] 500mg Take 1 [facility] 500 mg 1-14 11-25 capsule by ity of capsule 00:00: 05:59 mouth 4 [place] 00 :00 (four) Medical times Branch daily for 10 days. ampicillin 2021-06- No [id number] 500mg Take 1 [facility] 500 mg 1-14 11-25 capsule by ity of capsule 00:00: 05:59 mouth 4 [place] 00 :00 (four) Medical times Branch daily for 10 days. ampicillin 2021-06- No [id number] 500mg Take 1 [facility] 500 mg 1-14 11-25 capsule by ity of capsule 00:00: 05:59 mouth 4 [place] 00 :00 (four) Medical times Branch daily for 10 days. ampicillin 2021-06- No [id number] 500mg Take 1 [facility] 500 mg 1-14 11-25 capsule by ity of capsule 00:00: 05:59 mouth 4 [place] 00 :00 (four) Medical times Branch daily for 10 days. ampicillin 2021-06- No [id number] 500mg Take 1 [facility] 500 mg 1-14 11-25 capsule by ity of capsule 00:00: 05:59 mouth 4 [place] 00 :00 (four) Medical times Branch daily for 10 days. ampicillin 2021-06- No [id number] 500mg Take 1 [facility] 500 mg 1-14 11-25 capsule by ity of capsule 00:00: 05:59 mouth 4 [place] 00 :00 (four) Medical times Branch daily for 10 days. PNV 0 Yes [id number] 3{tbl} Take 3 Unive rs 112-iron-FA 7-12 tablets by it y of -om-3s-dha- 00:00: mouth [place] epa 00 daily. Medical (VITAFOL Branch GUMMIES) 3.33 mg iron- 0.33 mg Chew PNV Yes [id number] 3{tbl} Take 3 Unive rs 112-iron-FA 7-12 tablets by it y of -om-3s-dha- 00:00: mouth [place] epa 00 daily. Medical (VITAFOL Branch GUMMIES) 3.33 mg iron- 0.33 mg Chew PNV 2022-0 Yes [id number] 3{tbl} Take 3 Unive rs 112-iron-FA 7-12 tablets by it y of -om-3s-dha- 00:00: mouth [place] epa 00 daily. Medical (VITAFOL Branch GUMMIES) 3.33 mg iron- 0.33 mg Chew PNV 2022-0 Yes [id number] 3{tbl} Take 3 Unive rs 112-iron-FA 7-12 tablets by it y of -om-3s-dha- 00:00: mouth [place] epa 00 daily. Medical (VITAFOL Branch GUMMIES) 3.33 mg iron- 0.33 mg Chew PNV 2022-0 Yes [id number] 3{tbl} Take 3 Unive rs 112-iron-FA 7-12 tablets by it y of -om-3s-dha- 00:00: mouth [place] epa 00 daily. Medical (VITAFOL Branch GUMMIES) 3.33 mg iron- 0.33 mg Chew PNV 2022-0 Yes [id number] 3{tbl} Take 3 Unive rs 112-iron-FA 7-12 tablets by it y of -om-3s-dha- 00:00: mouth [place] epa 00 daily. Medical (VITAFOL Branch GUMMIES) 3.33 mg iron- 0.33 mg Chew PNV 2022-0 Yes [id number] 3{tbl} Take 3 Unive rs 112-iron-FA 7-12 tablets by it y of -om-3s-dha- 00:00: mouth [place] epa 00 daily. Medical (VITAFOL Branch GUMMIES) 3.33 mg iron- 0.33 mg Chew PNV 2022-0 Yes [id number] 3{tbl} Take 3 Unive rs 112-iron-FA 7-12 tablets by it y of -om-3s-dha- 00:00: mouth [place] epa 00 daily. Medical (VITAFOL Branch GUMMIES) 3.33 mg iron- 0.33 mg Chew PNV 2022-0 Yes [id number] 3{tbl} Take 3 Unive rs 112-iron-FA 7-12 tablets by it y of -om-3s-dha- 00:00: mouth [place] epa 00 daily. Medical (VITAFOL Branch GUMMIES) 3.33 mg iron- 0.33 mg Chew PNV 2022-0 Yes [id number] 3{tbl} Take 3 Unive rs 112-iron-FA 7-12 tablets by it y of -om-3s-dha- 00:00: mouth [place] epa 00 daily. Medical (VITAFOL Branch GUMMIES) 3.33 mg iron- 0.33 mg Chew PNV 2022-0 Yes [id number] 3{tbl} Take 3 Unive rs 112-iron-FA 7-12 tablets by it y of -om-3s-dha- 00:00: mouth [place] epa 00 daily. Medical (VITAFOL Branch GUMMIES) 3.33 mg iron- 0.33 mg Chew PNV 2022-0 Yes [id number] 3{tbl} Take 3 Unive rs 112-iron-FA 7-12 tablets by it y of -om-3s-dha- 00:00: mouth [place] epa 00 daily. Medical (VITAFOL Branch GUMMIES) 3.33 mg iron- 0.33 mg Chew PNV 2022-0 Yes [id number] 3{tbl} Take 3 Unive rs 112-iron-FA 7-12 tablets by it y of -om-3s-dha- 00:00: mouth [place] epa 00 daily. Medical (VITAFOL Branch GUMMIES) 3.33 mg iron- 0.33 mg Chew PNV 2022-0 Yes [id number] 3{tbl} Take 3 Unive rs 112-iron-FA 7-12 tablets by it y of -om-3s-dha- 00:00: mouth [place] epa 00 daily. Medical (VITAFOL Branch GUMMIES) 3.33 mg iron- 0.33 mg Chew PNV 2022-0 Yes [id number] 3{tbl} Take 3 Unive rs 112-iron-FA 7-12 tablets by it y of -om-3s-dha- 00:00: mouth [place] epa 00 daily. Medical (VITAFOL [facility] GUMMIES) 3.33 mg iron- 0.33 mg Chew PNV 2022-0 Yes [id number] 3{tbl} Take 3 Unive rs 112-iron-FA 7-12 tablets by it y of -om-3s-dha- 00:00: mouth [place] epa 00 daily. Medical (VITAFOL Branch GUMMIES) 3.33 mg iron- 0.33 mg Chew PNV 2022-0 Yes [id number] 3{tbl} Take 3 Unive rs 112-iron-FA 7-12 tablets by it y of -om-3s-dha- 00:00: mouth [place] epa 00 daily. Medical (VITAFOL Branch GUMMIES) 3.33 mg iron- 0.33 mg Chew PNV 2022-0 Yes [id number] 3{tbl} Take 3 Unive rs 112-iron-FA 7-12 tablets by it y of -om-3s-dha- 00:00: mouth [place] epa 00 daily. Medical (VITAFOL Branch GUMMIES) 3.33 mg iron- 0.33 mg Chew PNV 2022-0 Yes [id number] 3{tbl} Take 3 Unive rs 112-iron-FA 7-12 tablets by it y of -om-3s-dha- 00:00: mouth [place] epa 00 daily. Medical (VITAFOL Branch GUMMIES) 3.33 mg iron- 0.33 mg Chew PNV 2022-0 Yes [id number] 3{tbl} Take 3 Unive rs 112-iron-FA 7-12 tablets by it y of -om-3s-dha- 00:00: mouth [place] epa 00 daily. Medical (VITAFOL Branch GUMMIES) 3.33 mg iron- 0.33 mg Chew PNV 2022-0 Yes [id number] 3{tbl} Take 3 Unive rs 112-iron-FA 7-12 tablets by it y of -om-3s-dha- 00:00: mouth [place] epa 00 daily. Medical (VITAFOL Branch GUMMIES) 3.33 mg iron- 0.33 mg Chew PNV 2022-0 Yes [id number] 3{tbl} Take 3 Unive rs 112-iron-FA 7-12 tablets by it y of -om-3s-dha- 00:00: mouth [place] epa 00 daily. Medical (VITAFOL Branch GUMMIES) 3.33 mg iron- 0.33 mg Chew PNV 2022-0 Yes [id number] 3{tbl} Take 3 Unive rs 112-iron-FA 7-12 tablets by it y of -om-3s-dha- 00:00: mouth [place] epa 00 daily. Medical (VITAFOL [facility] GUMMIES) 3.33 mg iron- 0.33 mg Chew PNV 2022-0 Yes [id number] 3{tbl} Take 3 Unive rs 112-iron-FA 7-12 tablets by it y of -om-3s-dha- 00:00: mouth [place] epa 00 daily. Medical (VITAFOL Branch GUMMIES) 3.33 mg iron- 0.33 mg Chew PNV 2022-0 Yes [id number] 3{tbl} Take 3 Unive rs 112-iron-FA 7-12 tablets by it y of -om-3s-dha- 00:00: mouth [place] epa 00 daily. Medical (VITAFOL Branch GUMMIES) 3.33 mg iron- 0.33 mg Chew PNV 2022-0 Yes [id number] 3{tbl} Take 3 Unive rs 112-iron-FA 7-12 tablets by it y of -om-3s-dha- 00:00: mouth [place] epa 00 daily. Medical (VITAFOL Branch GUMMIES) 3.33 mg iron- 0.33 mg Chew PNV 2022-0 Yes [id number] 3{tbl} Take 3 Unive rs 112-iron-FA 7-12 tablets by it y of -om-3s-dha- 00:00: mouth [place] epa 00 daily. Medical (VITAFOL Branch GUMMIES) 3.33 mg iron- 0.33 mg Chew PNV 2022-0 Yes [id number] 3{tbl} Take 3 Unive rs 112-iron-FA 7-12 tablets by it y of -om-3s-dha- 00:00: mouth [place] epa 00 daily. Medical (VITAFOL Branch GUMMIES) 3.33 mg iron- 0.33 mg Chew PNV 2022-0 Yes [id number] 3{tbl} Take 3 Unive rs 112-iron-FA 7-12 tablets by it y of -om-3s-dha- 00:00: mouth [place] epa 00 daily. Medical (VITAFOL Branch GUMMIES) 3.33 mg iron- 0.33 mg Chew PNV 2022-0 Yes [id number] 3{tbl} Take 3 Unive rs 112-iron-FA 7-12 tablets by it y of -om-3s-dha- 00:00: mouth [place] epa 00 daily. Medical (VITAFOL Branch GUMMIES) 3.33 mg iron- 0.33 mg Chew PNV 2022-0 Yes [id number] 3{tbl} Take 3 Unive rs 112-iron-FA 7-12 tablets by it y of -om-3s-dha- 00:00: mouth [place] epa 00 daily. Medical (VITAFOL Branch GUMMIES) 3.33 mg iron- 0.33 mg Chew PNV 2022-0 Yes [id number] 3{tbl} Take 3 Unive rs 112-iron-FA 7-12 tablets by it y of -om-3s-dha- 00:00: mouth [place] epa 00 daily. Medical (VITAFOL Branch GUMMIES) 3.33 mg iron- 0.33 mg Chew PNV 2022-0 Yes [id number] 3{tbl} Take 3 Unive rs 112-iron-FA 7-12 tablets by it y of -om-3s-dha- 00:00: mouth [place] epa 00 daily. Medical (VITAFOL [facility] GUMMIES) 3.33 mg iron- 0.33 mg Chew PNV 2022-0 Yes [id number] 3{tbl} Take 3 Unive rs 112-iron-FA 7-12 tablets by it y of -om-3s-dha- 00:00: mouth [place] epa 00 daily. Medical (VITAFOL [facility] GUMMIES) 3.33 mg iron- 0.33 mg Chew PNV 2022-0 Yes [id number] 3{tbl} Take 3 Unive rs 112-iron-FA 7-12 tablets by it y of -om-3s-dha- 00:00: mouth [place] epa 00 daily. Medical (VITAFOL [facility] GUMMIES) 3.33 mg iron- 0.33 mg Chew PNV 2022-0 Yes [id number] 3{tbl} Take 3 Unive rs 112-iron-FA 7-12 tablets by it y of -om-3s-dha- 00:00: mouth [place] epa 00 daily. Medical (VITAFOL Branch GUMMIES) 3.33 mg iron- 0.33 mg Chew PNV 2022-0 Yes [id number] 3{tbl} Take 3 Unive rs 112-iron-FA 7-12 tablets by it y of -om-3s-dha- 00:00: mouth [place] epa 00 daily. Medical (VITAFOL [facility] GUMMIES) 3.33 mg iron- 0.33 mg Chew PNV 2022-0 Yes [id number] 3{tbl} Take 3 Unive rs 112-iron-FA 7-12 tablets by it y of -om-3s-dha- 00:00: mouth [place] epa 00 daily. Medical (VITAFOL Branch GUMMIES) 3.33 mg iron- 0.33 mg Chew PNV 2022-0 Yes [id number] 3{tbl} Take 3 Unive rs 112-iron-FA 7-12 tablets by it y of -om-3s-dha- 00:00: mouth [place] epa 00 daily. Medical (VITAFOL Branch GUMMIES) 3.33 mg iron- 0.33 mg Chew PNV 2022-0 Yes [id number] 3{tbl} Take 3 Unive rs 112-iron-FA 7-12 tablets by it y of -om-3s-dha- 00:00: mouth [place] epa 00 daily. Medical (VITAFOL Branch GUMMIES) 3.33 mg iron- 0.33 mg Chew PNV 2022-0 Yes [id number] 3{tbl} Take 3 Unive rs 112-iron-FA 7-12 tablets by it y of -om-3s-dha- 00:00: mouth [place] epa 00 daily. Medical (VITAFOL Branch GUMMIES) 3.33 mg iron- 0.33 mg Chew PNV 2022-0 Yes [id number] 3{tbl} Take 3 Unive rs 112-iron-FA 7-12 tablets by it y of -om-3s-dha- 00:00: mouth [place] epa 00 daily. Medical (VITAFOL [facility] GUMMIES) 3.33 mg iron- 0.33 mg Chew PNV 2022-0 Yes [id number] 3{tbl} Take 3 Unive rs 112-iron-FA 7-12 tablets by it y of -om-3s-dha- 00:00: mouth [place] epa 00 daily. Medical (VITAFOL Branch GUMMIES) 3.33 mg iron- 0.33 mg Chew PNV 2022-0 2023- No [id number] 3{tbl} Take 3 [facility] ers 112-iron-FA 7-12 02-06 tablets by i ty of -om-3s-dha- 00:00: 00:00 [place] ep[place] 00 :00 daily. Medical (VITAFOL Branch GUMMIES) 3.33 mg iron- 0.33 mg Chew PNV 2022- No [id number] 3{tbl} Take 3 [facility] ers 112-iron-FA 01-03 tablets by i ty of -om-3s-dha- 00:00: 00:00 [place] ep[place] 00 :00 daily. Medical (VITAFOL Branch GUMMIES) 3.33 mg iron- 0.33 mg Chew terconazole 2021- No [id number] 80mg Insert 1 [facility] 80 mg 01-03 Suppositor ity of vaginal 00:00: 04:59 y into [place] suppository 00 :00 vagina at [facility] bedtime Branch for 3 days. ferrous Yes [id number] 325mg Take 1 Un adebayo sulfate 325 6-15 tablet by ity of mg (65 mg 00:00: mouth 2 [place] iron) 00 (two) Medical tablet times Branch daily. ascorbic Yes [id number] 500mg Take 1 U nivers acid, 6-15 tablet by [facility] of vitamin C, 00:00: mouth 3 [place] 500 mg 00 (three) Medical tablet times Branch daily. ferrous Yes [id number] 325mg Take 1 Un adebayo sulfate 325 6-15 tablet by ity of mg (65 mg 00:00: mouth 2 [place] iron) 00 (two) Medical tablet times Branch daily. ascorbic Yes [id number] 500mg Take 1 U nivers acid, 6-15 tablet by [facility] of vitamin C, 00:00: mouth 3 [place] 500 mg 00 (three) Medical tablet times Branch daily. ferrous Yes [id number] 325mg Take 1 Un adebayo sulfate 325 6-15 tablet by ity of mg (65 mg 00:00: mouth 2 [place] iron) 00 (two) Medical tablet times Branch daily. ascorbic Yes [id number] 500mg Take 1 U nivers acid, 6-15 tablet by ity of vitamin C, 00:00: mouth 3 [place] 500 mg 00 (three) Medical tablet times Branch daily. ferrous Yes [id number] 325mg Take 1 Un adebayo sulfate 325 6-15 tablet by ity of mg (65 mg 00:00: mouth 2 [place] iron) 00 (two) Medical tablet times Branch daily. ascorbic Yes [id number] 500mg Take 1 U nivers acid, 6-15 tablet by [facility] of vitamin C, 00:00: mouth 3 [place] 500 mg 00 (three) Medical tablet times Branch daily. ferrous Yes [id number] 325mg Take 1 Un adebayo sulfate 325 6-15 tablet by ity of mg (65 mg 00:00: mouth 2 [place] iron) 00 (two) Medical tablet times Branch daily. ascorbic Yes [id number] 500mg Take 1 U nivers acid, 6-15 tablet by ity of vitamin C, 00:00: mouth 3 [place] 500 mg 00 (three) Medical tablet times Branch daily. ferrous Yes [id number] 325mg Take 1 Un adebayo sulfate 325 6-15 tablet by ity of mg (65 mg 00:00: mouth 2 [place] iron) 00 (two) Medical tablet times Branch daily. ascorbic Yes [id number] 500mg Take 1 U nivers acid, 6-15 tablet by [facility] of vitamin C, 00:00: mouth 3 [place] 500 mg 00 (three) Medical tablet times Branch daily. ferrous Yes [id number] 325mg Take 1 Un adebayo sulfate 325 6-15 tablet by ity of mg (65 mg 00:00: mouth 2 [place] iron) 00 (two) Medical tablet times Branch daily. ascorbic Yes [id number] 500mg Take 1 U nivers acid, 6-15 tablet by [facility]y of vitamin C, 00:00: mouth 3 [place] 500 mg 00 (three) Medical tablet times Branch daily. ferrous 0 Yes [id number] 325mg Take 1 Un adebayo sulfate 325 6-15 tablet by ity of mg (65 mg 00:00: mouth 2 [place] iron) 00 (two) Medical tablet times Branch daily. ascorbic Yes [id number] 500mg Take 1 U nivers acid, 6-15 tablet by ity of vitamin C, 00:00: mouth 3 [place] 500 mg 00 (three) Medical tablet times Branch daily. ferrous Yes [id number] 325mg Take 1 Un adebayo sulfate 325 6-15 tablet by ity of mg (65 mg 00:00: mouth 2 [place] iron) 00 (two) Medical tablet times Branch daily. ascorbic 2021-0 Yes [id number] 500mg Take 1 U nivers acid, 6-15 tablet by ity of vitamin C, 00:00: mouth 3 [place] mg 00 (three) Medical tablet times Branch daily. ferrous 0 Yes [id number] 325mg Take 1 Un adebayo sulfate 325 6-15 tablet by ity of mg (65 mg 00:00: mouth 2 [place] iron) 00 (two) Medical tablet times Branch daily. ascorbic 0 Yes [id number] 500mg Take 1 U nivers acid, 6-15 tablet by ity of vitamin C, 00:00: mouth 3 [place] 500 mg 00 (three) Medical tablet times Branch daily. ferrous Yes [id number] 325mg Take 1 Un adebayo sulfate 325 6-15 tablet by ity of mg (65 mg 00:00: mouth 2 [place] iron) 00 (two) Medical tablet times Branch daily. ascorbic Yes [id number] 500mg Take 1 U nivers acid, 6-15 tablet by ity of vitamin C, 00:00: mouth 3 [place] 500 mg 00 (three) Medical tablet times Branch daily. ferrous Yes [id number] 325mg Take 1 Un adebayo sulfate 325 6-15 tablet by ity of mg (65 mg 00:00: mouth 2 [place] iron) 00 (two) Medical tablet times Branch daily. ascorbic Yes [id number] 500mg Take 1 U nivers acid, 6-15 tablet by ity of vitamin C, 00:00: mouth 3 [place] 500 mg 00 (three) Medical tablet times Branch daily. ferrous 0 Yes [id number] 325mg Take 1 Un adebayo sulfate 325 6-15 tablet by ity of mg (65 mg 00:00: mouth 2 [place] iron) 00 (two) Medical tablet times Branch daily. ascorbic 2021-0 Yes [id number] 500mg Take 1 U nivers acid, 6-15 tablet by ity of vitamin C, 00:00: mouth 3 [place] 500 mg 00 (three) Medical tablet times Branch daily. ferrous 2021-0 Yes [id number] 325mg Take 1 Un adebayo sulfate 325 6-15 tablet by ity of mg (65 mg 00:00: mouth 2 [place] iron) 00 (two) Medical tablet times Branch daily. ascorbic Yes [id number] 500mg Take 1 U nivers acid, 6-15 tablet by ity of vitamin C, 00:00: mouth 3 [place] mg 00 (three) Medical tablet times Branch daily. ferrous 0 Yes [id number] 325mg Take 1 Un adebayo sulfate 325 6-15 tablet by ity of mg (65 mg 00:00: mouth 2 [place] iron) 00 (two) Medical tablet times Branch daily. ascorbic Yes [id number] 500mg Take 1 U nivers acid, 6-15 tablet by ity of vitamin C, 00:00: mouth 3 [place] 500 mg 00 (three) Medical tablet times Branch daily. ferrous Yes [id number] 325mg Take 1 Un adebayo sulfate 325 6-15 tablet by ity of mg (65 mg 00:00: mouth 2 [place] iron) 00 (two) Medical tablet times Branch daily. ascorbic Yes [id number] 500mg Take 1 U nivers acid, 6-15 tablet by ity of vitamin C, 00:00: mouth 3 [place] 500 mg 00 (three) Medical tablet times Branch daily. ferrous Yes [id number] 325mg Take 1 Un adebayo sulfate 325 6-15 tablet by ity of mg (65 mg 00:00: mouth 2 [place] iron) 00 (two) Medical tablet times Branch daily. ascorbic Yes [id number] 500mg Take 1 U nivers acid, 6-15 tablet by ity of vitamin C, 00:00: mouth 3 [place] 500 mg 00 (three) Medical tablet times Branch daily. ferrous 0 Yes [id number] 325mg Take 1 Un adebayo sulfate 325 6-15 tablet by ity of mg (65 mg 00:00: mouth 2 [place] iron) 00 (two) Medical tablet times Branch daily. ascorbic 2021-0 Yes [id number] 500mg Take 1 U nivers acid, 6-15 tablet by ity of vitamin C, 00:00: mouth 3 [place] 500 mg 00 (three) Medical tablet times Branch daily. ferrous 2021-0 Yes [id number] 325mg Take 1 Un adebayo sulfate 325 6-15 tablet by ity of mg (65 mg 00:00: mouth 2 [place] iron) 00 (two) Medical tablet times Branch daily. ascorbic 2021-0 Yes [id number] 500mg Take 1 U nivers acid, 6-15 tablet by ity of vitamin C, 00:00: mouth 3 [place] 500 mg 00 (three) Medical tablet times Branch daily. ferrous 202-0 Yes [id number] 325mg Take 1 Un adebayo sulfate 325 6-15 tablet by ity of mg (65 mg 00:00: mouth 2 [place] iron) 00 (two) Medical tablet times Branch daily. ascorbic 2021-0 Yes [id number] 500mg Take 1 U nivers acid, 6-15 tablet by ity of vitamin C, 00:00: mouth 3 [place] 500 mg 00 (three) Medical tablet times Branch daily. ferrous 2021-0 Yes [id number] 325mg Take 1 Un adebayo sulfate 325 6-15 tablet by ity of mg (65 mg 00:00: mouth 2 [place] iron) 00 (two) Medical tablet times Branch daily. ascorbic 2021-0 Yes [id number] 500mg Take 1 U nivers acid, 6-15 tablet by ity of vitamin C, 00:00: mouth 3 [place] 500 mg 00 (three) Medical tablet times Branch daily. ferrous 2021-0 Yes [id number] 325mg Take 1 Un adebayo sulfate 325 6-15 tablet by ity of mg (65 mg 00:00: mouth 2 [place] iron) 00 (two) Medical tablet times Branch daily. ascorbic 2021-0 Yes [id number] 500mg Take 1 U nivers acid, 6-15 tablet by ity of vitamin C, 00:00: mouth 3 [place] 500 mg 00 (three) Medical tablet times Branch daily. ascorbic 2021-0 Yes [id number] 500mg Take 1 U nivers acid, 6-15 tablet by ity of vitamin C, 00:00: mouth 3 [place] 500 mg 00 (three) Medical tablet times Branch daily. ascorbic 2021-0 Yes [id number] 500mg Take 1 U nivers acid, 6-15 tablet by ity of vitamin C, 00:00: mouth 3 [place] mg 00 (three) Medical tablet times Branch daily. ascorbic 2021-0 Yes [id number] 500mg Take 1 U nivers acid, 6-15 tablet by ity of vitamin C, 00:00: mouth 3 [place] 500 mg 00 (three) Medical tablet times Branch daily. ascorbic 2022-0 Yes [id number] 500mg Take 1 U nivers acid, 6-15 tablet by ity of vitamin C, 00:00: mouth 3 [place] 500 mg 00 (three) Medical tablet times Branch daily. ascorbic 0 Yes [id number] 500mg Take 1 U nivers acid, 6-15 tablet by ity of vitamin C, 00:00: mouth 3 [place] 500 mg 00 (three) Medical tablet times Branch daily. ascorbic Yes [id number] 500mg Take 1 U nivers acid, 6-15 tablet by ity of vitamin C, 00:00: mouth 3 [place] 500 mg 00 (three) Medical tablet times Branch daily. ascorbic Yes [id number] 500mg Take 1 U nivers acid, 6-15 tablet by ity of vitamin C, 00:00: mouth 3 [place] 500 mg 00 (three) Medical tablet times Branch daily. ascorbic Yes [id number] 500mg Take 1 U nivers acid, 6-15 tablet by ity of vitamin C, 00:00: mouth 3 [place] 500 mg 00 (three) Medical tablet times Branch daily. ferrous Yes [id number] 325mg Take 1 Un adebayo sulfate 325 6-15 tablet by ity of mg (65 mg 00:00: mouth 2 [place] iron) 00 (two) Medical tablet times Branch daily. ascorbic Yes [id number] 500mg Take 1 U nivers acid, 6-15 tablet by ity of vitamin C, 00:00: mouth 3 [place] 500 mg 00 (three) Medical tablet times Branch daily. ferrous 2021-0 Yes [id number] 325mg Take 1 Un adebayo sulfate 325 6-15 tablet by ity of mg (65 mg 00:00: mouth 2 [place] iron) 00 (two) Medical tablet times Branch daily. ascorbic Yes [id number] 500mg Take 1 U nivers acid, 6-15 tablet by ity of vitamin C, 00:00: mouth 3 [place] 500 mg 00 (three) Medical tablet times Branch daily. ferrous 2021-0 Yes [id number] 325mg Take 1 Un adebayo sulfate 325 6-15 tablet by ity of mg (65 mg 00:00: mouth 2 [place] iron) 00 (two) Medical tablet times Branch daily. ascorbic Yes [id number] 500mg Take 1 U nivers acid, 6-15 tablet by ity of vitamin C, 00:00: mouth 3 [place] 500 mg 00 (three) Medical tablet times Branch daily. ferrous Yes [id number] 325mg Take 1 Un adebayo sulfate 325 6-15 tablet by ity of mg (65 mg 00:00: mouth 2 [place] iron) 00 (two) Medical tablet times Branch daily. ascorbic Yes [id number] 500mg Take 1 U nivers acid, 6-15 tablet by ity of vitamin C, 00:00: mouth 3 [place] 500 mg 00 (three) Medical tablet times Branch daily. ferrous Yes [id number] 325mg Take 1 Un adebayo sulfate 325 6-15 tablet by ity of mg (65 mg 00:00: mouth 2 [place] iron) 00 (two) Medical tablet times Branch daily. ascorbic Yes [id number] 500mg Take 1 U nivers acid, 6-15 tablet by ity of vitamin C, 00:00: mouth 3 [place] 500 mg 00 (three) Medical tablet times Branch daily. ferrous Yes [id number] 325mg Take 1 Un adebayo sulfate 325 6-15 tablet by ity of mg (65 mg 00:00: mouth 2 [place] iron) 00 (two) Medical tablet times Branch daily. ascorbic Yes [id number] 500mg Take 1 U nivers acid, 6-15 tablet by ity of vitamin C, 00:00: mouth 3 [place] 500 mg 00 (three) Medical tablet times Branch daily. ferrous Yes [id number] 325mg Take 1 Un adebayo sulfate 325 6-15 tablet by ity of mg (65 mg 00:00: mouth 2 [place] iron) 00 (two) Medical tablet times Branch daily. ascorbic Yes [id number] 500mg Take 1 U nivers acid, 6-15 tablet by ity of vitamin C, 00:00: mouth 3 [place] 500 mg 00 (three) Medical tablet times Branch daily. ferrous Yes [id number] 325mg Take 1 Un adebayo sulfate 325 6-15 tablet by ity of mg (65 mg 00:00: mouth 2 [place] iron) 00 (two) Medical tablet times Branch daily. ascorbic Yes [id number] 500mg Take 1 U nivers acid, 6-15 tablet by ity of vitamin C, 00:00: mouth 3 [place] 500 mg 00 (three) Medical tablet times Branch daily. ferrous Yes [id number] 325mg Take 1 Un adebayo sulfate 325 6-15 tablet by ity of mg (65 mg 00:00: mouth 2 [place] iron) 00 (two) Medical tablet times Branch daily. ascorbic Yes [id number] 500mg Take 1 U nivers acid, 6-15 tablet by ity of vitamin C, 00:00: mouth 3 [place] 500 mg 00 (three) Medical tablet times Branch daily. ferrous Yes [id number] 325mg Take 1 Un adebayo sulfate 325 6-15 tablet by ity of mg (65 mg 00:00: mouth 2 [place] iron) 00 (two) Medical tablet times Branch daily. ascorbic Yes [id number] 500mg Take 1 U nivers acid, 6-15 tablet by ity of vitamin C, 00:00: mouth 3 [place] 500 mg 00 (three) Medical tablet times Branch daily. ferrous Yes [id number] 325mg Take 1 Un adebayo sulfate 325 6-15 tablet by ity of mg (65 mg 00:00: mouth 2 [place] iron) 00 (two) Medical tablet times Branch daily. ascorbic Yes [id number] 500mg Take 1 U nivers acid, 6-15 tablet by ity of vitamin C, 00:00: mouth 3 [place] 500 mg 00 (three) Medical tablet times Branch daily. ferrous Yes [id number] 325mg Take 1 Un adebayo sulfate 325 6-15 tablet by ity of mg (65 mg 00:00: mouth 2 [place] iron) 00 (two) Medical tablet times Branch daily. ascorbic Yes [id number] 500mg Take 1 U nivers acid, 6-15 tablet by ity of vitamin C, 00:00: mouth 3 [place] 500 mg 00 (three) Medical tablet times Branch daily. ferrous Yes [id number] 325mg Take 1 Un adebayo sulfate 325 6-15 tablet by ity of mg (65 mg 00:00: mouth 2 [place] iron) 00 (two) Medical tablet times Branch daily. ascorbic Yes [id number] 500mg Take 1 U nivers acid, 6-15 tablet by ity of vitamin C, 00:00: mouth 3 [place] 500 mg 00 (three) Medical tablet times Branch daily. ferrous Yes [id number] 325mg Take 1 Un adebayo sulfate 325 6-15 tablet by ity of mg (65 mg 00:00: mouth 2 [place] iron) 00 (two) Medical tablet times Branch daily. ascorbic Yes [id number] 500mg Take 1 U nivers acid, 6-15 tablet by ity of vitamin C, 00:00: mouth 3 [place] 500 mg 00 (three) Medical tablet times Branch daily. ferrous Yes [id number] 325mg Take 1 Un adebayo sulfate 325 6-15 tablet by ity of mg (65 mg 00:00: mouth 2 [place] iron) 00 (two) Medical tablet times Branch daily. ascorbic Yes [id number] 500mg Take 1 U nivers acid, 6-15 tablet by ity of vitamin C, 00:00: mouth 3 [place] 500 mg 00 (three) Medical tablet times Branch daily. ferrous Yes [id number] 325mg Take 1 Un adebayo sulfate 325 6-15 tablet by ity of mg (65 mg 00:00: mouth 2 [place] iron) 00 (two) Medical tablet times Branch daily. ascorbic Yes [id number] 500mg Take 1 U nivers acid, 6-15 tablet by ity of vitamin C, 00:00: mouth 3 [place] 500 mg 00 (three) Medical tablet times Branch daily. ferrous Yes [id number] 325mg Take 1 Un adebayo sulfate 325 6-15 tablet by ity of mg (65 mg 00:00: mouth 2 [place] iron) 00 (two) Medical tablet times Branch daily. ascorbic 0 Yes [id number] 500mg Take 1 U nivers acid, 6-15 tablet by ity of vitamin C, 00:00: mouth 3 [place] 500 mg 00 (three) Medical tablet times Branch daily. ferrous 0 Yes [id number] 325mg Take 1 Un adebayo sulfate 325 6-15 tablet by ity of mg (65 mg 00:00: mouth 2 [place] iron) 00 (two) Medical tablet times Branch daily. ascorbic Yes [id number] 500mg Take 1 U nivers acid, 6-15 tablet by ity of vitamin C, 00:00: mouth 3 [place] 500 mg 00 (three) Medical tablet times Branch daily. ferrous Yes [id number] 325mg Take 1 Un adebayo sulfate 325 6-15 tablet by ity of mg (65 mg 00:00: mouth 2 [place] iron) 00 (two) Medical tablet times Branch daily. ascorbic Yes [id number] 500mg Take 1 U nivers acid, 6-15 tablet by ity of vitamin C, 00:00: mouth 3 [place] 500 mg 00 (three) Medical tablet times Branch daily. ferrous Yes [id number] 325mg Take 1 Un adebayo sulfate 325 6-15 tablet by ity of mg (65 mg 00:00: mouth 2 [place] iron) 00 (two) Medical tablet times Branch daily. ascorbic Yes [id number] 500mg Take 1 U nivers acid, 6-15 tablet by ity of vitamin C, 00:00: mouth 3 [place] 500 mg 00 (three) Medical tablet times Branch daily. ferrous Yes [id number] 325mg Take 1 Un adebayo sulfate 325 6-15 tablet by ity of mg (65 mg 00:00: mouth 2 [place] iron) 00 (two) Medical tablet times Branch daily. ascorbic Yes [id number] 500mg Take 1 U nivers acid, 6-15 tablet by ity of vitamin C, 00:00: mouth 3 [place] 500 mg 00 (three) Medical tablet times Branch daily. ferrous Yes [id number] 325mg Take 1 Un adebayo sulfate 325 6-15 tablet by ity of mg (65 mg 00:00: mouth 2 [place] iron) 00 (two) Medical tablet times Branch daily. ascorbic Yes [id number] 500mg Take 1 U nivers acid, 6-15 tablet by ity of vitamin C, 00:00: mouth 3 [place] 500 mg 00 (three) Medical tablet times Branch daily. ascorbic 2022- No [id number] 500mg Take 1 [facility] acid, 6-15 03-28 tablet by ity of vitamin C, 00:00: 00:00 mouth 3 [place] 500 mg 00 :00 (three) Medical tablet times Branch daily. ascorbic 2022- No [id number] 500mg Take 1 [facility] acid, 12-07 tablet by ity of vitamin C, 00:00: 00:00 mouth 3 [place] 500 mg 00 :00 (three) Medical tablet times Branch daily. ascorbic 2022- No [id number] 500mg Take 1 [facility] acid, 6-15 09-19 tablet by ity of vitamin C, 00:00: 00:00 mouth 3 [place] 500 mg 00 :00 (three) Medical tablet times Branch daily. ferrous 2022- No [id number] 325mg Take 1 U nivers sulfate 325 12-07 tablet by it y of mg (65 mg 00:00: 00:00 mouth 2 [place] iron) 00 :00 (two) Medical tablet times Branch daily. ferrous 2022- No [id number] 325mg Take 1 U nivers sulfate 325 12-07 tablet by it y of mg (65 mg 00:00: 00:00 mouth 2 [place] iron) 00 :00 (two) Medical tablet times Branch daily. Yes Take by [facility] s vit 6-14 mouth. ity of no.124/iron 09:01: [place] /folic 56 Medical ( Branch VITAMIN ORAL) Yes Take by [facility] s vit 6-14 mouth. ity of no.124/iron 09:01: [place] /folic 56 Medical ( Branch VITAMIN ORAL) Yes Take by [facility] vit 6-14 mouth. ity of no.124/iron 09:01: [place] /[facility]olic 56 [facility] ( Branch VITAMIN ORAL) Yes Take by [facility] vit 6-14 mouth. ity of no.124/iron 09:01: [place] /folic 56 [facility] ( Branch VITAMIN ORAL) Yes Take by [facility] 6-14 mouth. ity of no.124/iron 09:01: [place] /folic 56 [facility] ( Branch VITAMIN ORAL) Yes Take by [facility] vit 6-14 mouth. ity of no.124/iron 09:01: [place] /folic 56 [facility] ( Branch VITAMIN ORAL) Yes Take by [facility] vit 6-14 mouth. ity of no.124/iron 09:01: [place] /folic 56 [facility] ( Branch VITAMIN ORAL) 0 Yes Take by [facility] vit 6-14 mouth. ity of no.124/iron 09:01: [place] /folic 56 Medical ( Branch VITAMIN ORAL) 0 Yes Take by [facility] vit 6-14 mouth. ity of no.124/iron 09:01: [place] /folic 56 [facility] ( Branch VITAMIN ORAL) 0 Yes Take by [facility] vit 6-14 mouth. ity of no.124/iron 09:01: [place] /folic 56 Medical ( Branch VITAMIN ORAL) 0 Yes Take by [facility] vit 6-14 mouth. ity of no.124/iron 09:01: [place] /folic 56 Medical ( Branch VITAMIN ORAL) 0 Yes Take by [facility] vit 6-14 mouth. ity of no.124/iron 09:01: [place] /folic 56 Medical ( Branch VITAMIN ORAL) Yes Take by [facility] vit 6-14 mouth. ity of no.124/iron 09:01: [place] /folic 56 Medical ( Branch VITAMIN ORAL) 0 Yes Take by [facility] vit 6-14 mouth. ity of no.124/iron 09:01: [place] /folic 56 Medical ( Branch VITAMIN ORAL) 0 Yes Take by [facility] vit 6-14 mouth. ity of no.124/iron 09:01: [place] /folic 56 Medical ( Branch VITAMIN ORAL) 0 Yes Take by [facility] vit 6-14 mouth. ity of no.124/iron 09:01: [place] /folic 56 Medical ( Branch VITAMIN ORAL) 0 Yes Take by [facility] vit 6-14 mouth. ity of no.124/iron 09:01: [place] /folic 56 Medical ( Branch VITAMIN ORAL) 0 Yes Take by [facility] vit 6-14 mouth. ity of no.124/iron 09:01: [place] /folic 56 Medical ( Branch VITAMIN ORAL) 0 Yes Take by [facility] vit 6-14 mouth. ity of no.124/iron 09:01: [place] /folic 56 Medical ( Branch VITAMIN ORAL) 0 Yes Take by [facility] vit 6-14 mouth. ity of no.124/iron 09:01: [place] /folic 56 Medical ( Branch VITAMIN ORAL) Yes Take by [facility] vit 6-14 mouth. ity of no.124/iron 09:01: [place] /folic 56 Medical ( Branch VITAMIN ORAL) 0 Yes Take by [facility] vit 6-14 mouth. ity of no.124/iron 09:01: [place] /folic 56 Medical ( Branch VITAMIN ORAL) Yes Take by [facility] vit 6-14 mouth. ity of no.124/iron 09:01: [place] /folic 56 Medical ( Branch VITAMIN ORAL) Yes Take by [facility] vit 6-14 mouth. ity of no.124/iron 09:01: [place] /folic 56 Medical ( Branch VITAMIN ORAL) Yes Take by [facility] vit 6-14 mouth. ity of no.124/iron 09:01: [place] /folic 56 Medical ( Branch VITAMIN ORAL) Yes Take by [facility] vit 6-14 mouth. ity of no.124/iron 09:01: [place] /folic 56 Medical ( Branch VITAMIN ORAL) Yes Take by [facility] 6-14 mouth. ity of no.124/iron 09:01: [place] /folic 56 Medical ( Branch VITAMIN ORAL) Yes Take by [facility] vit 6-14 mouth. ity of no.124/iron 09:01: [place] /folic 56 Medical ( Branch VITAMIN ORAL) Yes Take by [facility] vit 6-14 mouth. ity of no.124/iron 09:01: [place] /folic 56 Medical ( Branch VITAMIN ORAL) 0 Yes Take by [facility] vit 6-14 mouth. ity of no.124/iron 09:01: [place] /folic 56 Medical ( Branch VITAMIN ORAL) 0 Yes Take by [facility] vit 6-14 mouth. ity of no.124/iron 09:01: [place] /folic 56 Medical ( Branch VITAMIN ORAL) Yes [id number] 1{tbl} Take 1 [facility] 6-14 tablet by ity of n ( 00:00: mouth [place] VITAMIN) 00 daily. Medical tablet Branch PNV 67-iron 2021-0 Yes [id number] 1{each} Take 1 [facility]-folate 6-14 Each by ity of no.1-dha 00:00: mouth [place] (VITAFOL 00 daily. Medical ULTRA) 29 Branch mg iron- 1 mg-200 mg Cap 2021-0 Yes [id number] 1{tbl} Take 1 [facility] 6-14 tablet by ity of n ( 00:00: mouth [place] VITAMIN) 00 daily. Medical tablet Branch PNV 67-iron 2021-0 Yes [id number] 1{each} Take 1 [facility] ps-folate 6-14 Each by ity of no.1-dha 00:00: mouth [place] (VITAFOL 00 daily. Medical ULTRA) 29 Branch mg iron- 1 mg-200 mg Cap 2021-0 Yes [id number] 1{tbl} Take 1 [facility] 6-14 tablet by ity of n ( 00:00: mouth [place] VITAMIN) 00 daily. Medical tablet Branch PNV 67-iron 2021-0 Yes [id number] 1{each} Take 1 [facility] ps-folate 6-14 Each by ity of no.1-dha 00:00: mouth [place] (VITAFOL 00 daily. Medical ULTRA) 29 Branch mg iron- 1 mg-200 mg Cap 2021-0 Yes [id number] 1{tbl} Take 1 [facility] 6-14 tablet by ity of n ( 00:00: mouth [place] VITAMIN) 00 daily. Medical tablet Branch PNV 67-iron 2021-0 Yes [id number] 1{each} Take 1 [facility] ps-folate 6-14 Each by ity of no.1-dha 00:00: mouth [place] (VITAFOL 00 daily. Medical ULTRA) 29 Branch mg iron- 1 mg-200 mg Cap 2021-0 Yes [id number] 1{tbl} Take 1 [facility] 6-14 tablet by ity of n ( 00:00: mouth [place] VITAMIN) 00 daily. Medical tablet Branch PNV 67-iron 2021-0 Yes [id number] 1{each} Take 1 [facility] ps-folate 6-14 Each by ity of no.1-dha 00:00: mouth [place] (VITAFOL 00 daily. Medical ULTRA) 29 Branch mg iron- 1 mg-200 mg Cap 2021-0 Yes [id number] 1{tbl} Take 1 [facility] 6-14 tablet by ity of n ( 00:00: mouth [place] VITAMIN) 00 daily. Medical tablet Branch PNV 67-iron 2021-0 Yes [id number] 1{each} Take 1 [facility] ps-folate 6-14 Each by ity of no.1-dha 00:00: mouth [place] (VITAFOL 00 daily. Medical ULTRA) 29 Branch mg iron- 1 mg-200 mg Cap 2021-0 Yes [id number] 1{tbl} Take 1 [facility] 6-14 tablet by ity of n ( 00:00: mouth [place] VITAMIN) 00 daily. Medical tablet Branch PNV 67-iron 2021-0 Yes [id number] 1{each} Take 1 [facility] ps-folate 6-14 Each by ity of no.1-dha 00:00: mouth [place] (VITAFOL 00 daily. Medical ULTRA) 29 Branch mg iron- 1 mg-200 mg Cap 2021-0 Yes [id number] 1{tbl} Take 1 [facility] 6-14 tablet by ity of n ( 00:00: mouth [place] VITAMIN) 00 daily. Medical tablet Branch PNV 67-iron 2021-0 Yes [id number] 1{each} Take 1 [facility] ps-folate 6-14 Each by ity of no.1-dha 00:00: mouth [place] (VITAFOL 00 daily. Medical ULTRA) 29 Branch mg iron- 1 mg-200 mg Cap 2021-0 Yes [id number] 1{tbl} Take 1 [facility] 6-14 tablet by ity of n ( 00:00: mouth [place] VITAMIN) 00 daily. Medical tablet Branch PNV 67-iron 2021-0 Yes [id number] 1{each} Take 1 [facility] ps-folate 6-14 Each by ity of no.1-dha 00:00: mouth [place] (VITAFOL 00 daily. Medical ULTRA) 29 Branch mg iron- 1 mg-200 mg Cap 2021-0 Yes [id number] 1{tbl} Take 1 [facility] 6-14 tablet by ity of n ( 00:00: mouth [place] VITAMIN) 00 daily. Medical tablet Branch PNV 67-iron 2021-0 Yes [id number] 1{each} Take 1 [facility] ps-folate 6-14 Each by ity of no.1-dha 00:00: mouth [place] (VITAFOL 00 daily. Medical ULTRA) 29 Branch mg iron- 1 mg-200 mg Cap 2021-0 Yes [id number] 1{tbl} Take 1 [facility] 6-14 tablet by ity of n ( 00:00: mouth [place] VITAMIN) 00 daily. Medical tablet Branch PNV 67-iron 2021-0 Yes [id number] 1{each} Take 1 [facility] ps-folate 6-14 Each by ity of no.1-dha 00:00: mouth [place] (VITAFOL 00 daily. Medical ULTRA) 29 Branch mg iron- 1 mg-200 mg Cap 2021-0 Yes [id number] 1{tbl} Take 1 [facility] 6-14 tablet by ity of n ( 00:00: mouth [place] VITAMIN) 00 daily. Medical tablet Branch PNV 67-iron 2021-0 Yes [id number] 1{each} Take 1 [facility] ps-folate 6-14 Each by ity of no.1-dha 00:00: mouth [place] (VITAFOL 00 daily. Medical ULTRA) 29 Branch mg iron- 1 mg-200 mg Cap 2021-0 Yes [id number] 1{tbl} Take 1 [facility] 6-14 tablet by ity of n ( 00:00: mouth [place] VITAMIN) 00 daily. Medical tablet Branch PNV 67-iron 2021-0 Yes [id number] 1{each} Take 1 [facility] ps-folate 6-14 Each by ity of no.1-dha 00:00: mouth [place] (VITAFOL 00 daily. Medical ULTRA) 29 Branch mg iron- 1 mg-200 mg Cap 2021-0 Yes [id number] 1{tbl} Take 1 [facility] 6-14 tablet by ity of n ( 00:00: mouth [place] VITAMIN) 00 daily. Medical tablet Branch PNV 67-iron 2021-0 Yes [id number] 1{each} Take 1 [facility] ps-folate 6-14 Each by ity of no.1-dha 00:00: mouth [place] (VITAFOL 00 daily. Medical ULTRA) 29 Branch mg iron- 1 mg-200 mg Cap 2021-0 Yes [id number] 1{tbl} Take 1 [facility] 6-14 tablet by ity of n ( 00:00: mouth [place] VITAMIN) 00 daily. Medical tablet Branch PNV 67-iron 2-0 Yes [id number] 1{each} Take 1 [facility] ps-folate 6-14 Each by ity of no.1-dha 00:00: mouth [place] (VITAFOL 00 daily. Medical ULTRA) 29 Branch mg iron- 1 mg-200 mg Cap 2021-0 Yes [id number] 1{tbl} Take 1 [facility] 6-14 tablet by ity of n ( 00:00: mouth [place] VITAMIN) 00 daily. Medical tablet Branch PNV 67-iron 2021-0 Yes [id number] 1{each} Take 1 [facility] ps-folate 6-14 Each by ity of no.1-dha 00:00: mouth [place] (VITAFOL 00 daily. Medical ULTRA) 29 Branch mg iron- 1 mg-200 mg Cap 2021-0 Yes [id number] 1{tbl} Take 1 [facility] 6-14 tablet by ity of n ( 00:00: mouth [place] VITAMIN) 00 daily. Medical tablet Branch PNV 67-iron 2021-0 Yes [id number] 1{each} Take 1 [facility] ps-folate 6-14 Each by ity of no.1-dha 00:00: mouth [place] (VITAFOL 00 daily. Medical ULTRA) 29 Branch mg iron- 1 mg-200 mg Cap 2021-0 Yes [id number] 1{tbl} Take 1 [facility] 6-14 tablet by ity of n ( 00:00: mouth [place] VITAMIN) 00 daily. Medical tablet Branch PNV 67-iron 2021-0 Yes [id number] 1{each} Take 1 [facility] ps-folate 6-14 Each by ity of no.1-dha 00:00: mouth [place] (VITAFOL 00 daily. Medical ULTRA) 29 Branch mg iron- 1 mg-200 mg Cap 2021-0 Yes [id number] 1{tbl} Take 1 [facility] 6-14 tablet by ity of n ( 00:00: mouth [place] VITAMIN) 00 daily. Medical tablet Branch PNV 67-iron 2021-0 Yes [id number] 1{each} Take 1 [facility] ps-folate 6-14 Each by ity of no.1-dha 00:00: mouth [place] (VITAFOL 00 daily. Medical ULTRA) 29 Branch mg iron- 1 mg-200 mg Cap 2021-0 Yes [id number] 1{tbl} Take 1 [facility] 6-14 tablet by ity of n ( 00:00: mouth [place] VITAMIN) 00 daily. Medical tablet Branch PNV 67-iron 2021-0 Yes [id number] 1{each} Take 1 [facility] ps-folate 6-14 Each by ity of no.1-dha 00:00: mouth [place] (VITAFOL 00 daily. Medical ULTRA) 29 Branch mg iron- 1 mg-200 mg Cap 2021-0 Yes [id number] 1{tbl} Take 1 [facility] 6-14 tablet by ity of n ( 00:00: mouth [place] VITAMIN) 00 daily. Medical tablet Branch PNV 67-iron 2021-0 Yes [id number] 1{each} Take 1 [facility] ps-folate 6-14 Each by ity of no.1-dha 00:00: mouth [place] (VITAFOL 00 daily. Medical ULTRA) 29 Branch mg iron- 1 mg-200 mg Cap 2021-0 Yes [id number] 1{tbl} Take 1 [facility] 6-14 tablet by ity of n ( 00:00: mouth [place] VITAMIN) 00 daily. Medical tablet Branch PNV 67-iron 2021-0 Yes [id number] 1{each} Take 1 [facility] ps-folate 6-14 Each by ity of no.1-dha 00:00: mouth [place] (VITAFOL 00 daily. Medical ULTRA) 29 Branch mg iron- 1 mg-200 mg Cap 2021-0 Yes [id number] 1{tbl} Take 1 [facility] 6-14 tablet by ity of n ( 00:00: mouth [place] VITAMIN) 00 daily. Medical tablet Branch PNV 67-iron 2021-0 Yes [id number] 1{each} Take 1 [facility] ps-folate 6-14 Each by ity of no.1-dha 00:00: mouth [place] (VITAFOL 00 daily. Medical ULTRA) 29 Branch mg iron- 1 mg-200 mg Cap 2021-0 Yes [id number] 1{tbl} Take 1 [facility] 6-14 tablet by ity of n ( 00:00: mouth [place] VITAMIN) 00 daily. Medical tablet Branch PNV 67-iron 2021-0 Yes [id number] 1{each} Take 1 [facility] ps-folate 6-14 Each by ity of no.1-dha 00:00: mouth [place] (VITAFOL 00 daily. Medical ULTRA) 29 Branch mg iron- 1 mg-200 mg Cap 2021-0 Yes [id number] 1{tbl} Take 1 [facility] 6-14 tablet by ity of n ( 00:00: mouth [place] VITAMIN) 00 daily. Medical tablet Branch PNV 67-iron 2021-0 Yes [id number] 1{each} Take 1 [facility] ps-folate 6-14 Each by ity of no.1-dha 00:00: mouth [place] (VITAFOL 00 daily. Medical ULTRA) 29 Branch mg iron- 1 mg-200 mg Cap 2021-0 Yes [id number] 1{tbl} Take 1 [facility] 6-14 tablet by ity of n ( 00:00: mouth [place] VITAMIN) 00 daily. Medical tablet Branch PNV 67-iron 2021-0 Yes [id number] 1{each} Take 1 [facility] ps-folate 6-14 Each by ity of no.1-dha 00:00: mouth [place] (VITAFOL 00 daily. Medical ULTRA) 29 Branch mg iron- 1 mg-200 mg Cap 2021-0 Yes [id number] 1{tbl} Take 1 [facility] 6-14 tablet by ity of n ( 00:00: mouth [place] VITAMIN) 00 daily. Medical tablet Branch PNV 67-iron 2021-0 Yes [id number] 1{each} Take 1 [facility] ps-folate 6-14 Each by ity of no.1-dha 00:00: mouth [place] (VITAFOL 00 daily. Medical ULTRA) 29 Branch mg iron- 1 mg-200 mg Cap 2021-0 Yes [id number] 1{tbl} Take 1 [facility] 6-14 tablet by ity of n ( 00:00: mouth [place] VITAMIN) 00 daily. Medical tablet Branch PNV 67-iron 2021-0 Yes [id number] 1{each} Take 1 [facility] ps-folate 6-14 Each by ity of no.1-dha 00:00: mouth [place] (VITAFOL 00 daily. Medical ULTRA) 29 Branch mg iron- 1 mg-200 mg Cap 2021-0 Yes [id number] 1{tbl} Take 1 [facility] 6-14 tablet by ity of n ( 00:00: mouth [place] VITAMIN) 00 daily. Medical tablet Branch PNV 67-iron 2021-0 Yes [id number] 1{each} Take 1 [facility] ps-folate 6-14 Each by ity of no.1-dha 00:00: mouth [place] (VITAFOL 00 daily. Medical ULTRA) 29 Branch mg iron- 1 mg-200 mg Cap 2021-0 Yes [id number] 1{tbl} Take 1 [facility] 6-14 tablet by ity of n ( 00:00: mouth [place] VITAMIN) 00 daily. Medical tablet Branch PNV 67-iron 2021-0 Yes [id number] 1{each} Take 1 [facility] ps-folate 6-14 Each by ity of no.1-dha 00:00: mouth [place] (VITAFOL 00 daily. Medical ULTRA) 29 Branch mg iron- 1 mg-200 mg Cap 2021-0 Yes [id number] 1{tbl} Take 1 [facility] 6-14 tablet by ity of n ( 00:00: mouth [place] VITAMIN) 00 daily. Medical tablet Branch PNV 67-iron 2021-0 Yes [id number] 1{each} Take 1 [facility] ps-folate 6-14 Each by ity of no.1-dha 00:00: mouth [place] (VITAFOL 00 daily. Medical ULTRA) 29 Branch mg iron- 1 mg-200 mg Cap 2021-0 Yes [id number] 1{tbl} Take 1 [facility] 6-14 tablet by ity of n ( 00:00: mouth [place] VITAMIN) 00 daily. Medical tablet Branch PNV 67-iron 2021-0 Yes [id number] 1{each} Take 1 [facility] ps-folate 6-14 Each by ity of no.1-dha 00:00: mouth [place] (VITAFOL 00 daily. Medical ULTRA) 29 Branch mg iron- 1 mg-200 mg Cap 2021-0 Yes [id number] 1{tbl} Take 1 [facility] 6-14 tablet by ity of n ( 00:00: mouth [place] VITAMIN) 00 daily. Medical tablet Branch PNV 67-iron 2021-0 Yes [id number] 1{each} Take 1 [facility] ps-folate 6-14 Each by ity of no.1-dha 00:00: mouth [place] (VITAFOL 00 daily. Medical ULTRA) 29 Branch mg iron- 1 mg-200 mg Cap 2021-0 Yes [id number] 1{tbl} Take 1 [facility] 6-14 tablet by ity of n ( 00:00: mouth [place] VITAMIN) 00 daily. Medical tablet Branch PNV 67-iron 2021-0 Yes [id number] 1{each} Take 1 [facility] ps-folate 6-14 Each by ity of no.1-dha 00:00: mouth [place] (VITAFOL 00 daily. Medical ULTRA) 29 Branch mg iron- 1 mg-200 mg Cap 2021-0 Yes [id number] 1{tbl} Take 1 [facility] 6-14 tablet by ity of n ( 00:00: mouth [place] VITAMIN) 00 daily. Medical tablet Branch PNV 67-iron 2021-0 Yes [id number] 1{each} Take 1 [facility] ps-folate 6-14 Each by ity of no.1-dha 00:00: mouth [place] (VITAFOL 00 daily. Medical ULTRA) 29 Branch mg iron- 1 mg-200 mg Cap 2021-0 Yes [id number] 1{tbl} Take 1 [facility] 6-14 tablet by ity of n ( 00:00: mouth [place] VITAMIN) 00 daily. Medical tablet Branch PNV 67-iron 2021-0 Yes [id number] 1{each} Take 1 [facility] ps-folate 6-14 Each by ity of no.1-dha 00:00: mouth [place] (VITAFOL 00 daily. Medical ULTRA) 29 Branch mg iron- 1 mg-200 mg Cap 2021-0 Yes [id number] 1{tbl} Take 1 [facility] 6-14 tablet by ity of n ( 00:00: mouth [place] VITAMIN) 00 daily. Medical tablet Branch PNV 67-iron 2021-0 Yes [id number] 1{each} Take 1 [facility] ps-folate 6-14 Each by ity of no.1-dha 00:00: mouth [place] (VITAFOL 00 daily. Medical ULTRA) 29 Branch mg iron- 1 mg-200 mg Cap 2021-0 Yes [id number] 1{tbl} Take 1 [facility] 6-14 tablet by ity of n ( 00:00: mouth [place] VITAMIN) 00 daily. Medical tablet Branch PNV 67-iron 2021-0 Yes [id number] 1{each} Take 1 [facility] ps-folate 6-14 Each by ity of no.1-dha 00:00: mouth [place] (VITAFOL 00 daily. Medical ULTRA) 29 Branch mg iron- 1 mg-200 mg Cap 2021-0 Yes [id number] 1{tbl} Take 1 [facility] 6-14 tablet by ity of n ( 00:00: mouth [place] VITAMIN) 00 daily. Medical tablet Branch PNV 67-iron 2021-0 Yes [id number] 1{each} Take 1 [facility] ps-folate 6-14 Each by ity of no.1-dha 00:00: mouth [place] (VITAFOL 00 daily. Medical ULTRA) 29 Branch mg iron- 1 mg-200 mg Cap 2021-0 Yes [id number] 1{tbl} Take 1 [facility] 6-14 tablet by ity of n ( 00:00: mouth [place] VITAMIN) 00 daily. Medical tablet Branch PNV 67-iron 2021-0 Yes [id number] 1{each} Take 1 [facility] ps-folate 6-14 Each by ity of no.1-dha 00:00: mouth [place] (VITAFOL 00 daily. Medical ULTRA) 29 Branch mg iron- 1 mg-200 mg Cap 2021-0 Yes [id number] 1{tbl} Take 1 [facility] 6-14 tablet by ity of n ( 00:00: mouth [place] VITAMIN) 00 daily. Medical tablet Branch PNV 67-iron 2021-0 Yes [id number] 1{each} Take 1 [facility] ps-folate 6-14 Each by ity of no.1-dha 00:00: mouth [place] (VITAFOL 00 daily. Medical ULTRA) 29 Branch mg iron- 1 mg-200 mg Cap 2021-0 Yes [id number] 1{tbl} Take 1 [facility] 6-14 tablet by ity of n ( 00:00: mouth [place] VITAMIN) 00 daily. Medical tablet Branch PNV 67-iron 2021-0 Yes [id number] 1{each} Take 1 [facility] ps-folate 6-14 Each by ity of no.1-dha 00:00: mouth [place] (VITAFOL 00 daily. Medical ULTRA) 29 Branch mg iron- 1 mg-200 mg Cap Yes [id number] 1{tbl} Take 1 [facility] 6-14 tablet by ity of n ( 00:00: mouth [place] VITAMIN) 00 daily. Medical tablet Branch PNV 67-iron 2021- Yes [id number] 1{each} Take 1 [facility] ps-folate 6-14 Each by ity of no.1-dha 00:00: mouth [place] (VITAFOL 00 daily. Medical ULTRA) 29 Branch mg iron- 1 mg-200 mg Cap Yes [id number] 1{tbl} Take 1 [facility]it[facility] 6-14 tablet by ity of n ( 00:00: mouth [place] VITAMIN) 00 daily. Medical tablet Branch PNV 67-iron Yes [id number] 1{each} Take 1 [facility] ps-folate 6-14 Each by ity of no.1-dha 00:00: mouth [place] (VITAFOL 00 daily. Medical ULTRA) 29 Branch mg iron- 1 mg-200 mg Cap 2022- No [id number] 1{tbl} Take 1 [facility] 6-14 02-07 tablet by [facility] n ( 00:00: [place] [facility] 00 :00 daily. Medical tablet Branch 0 2022- No [id number] 1{tbl} Take 1 [facility] 6-14 02-07 tablet by [facility] n ( 00:00[place] [facility] 00 :00 daily. Medical tablet Branch PNV 67-iron 2021-0 2022- No [id number] 1{each} Take 1 [facility] ps-folate 6-14 02-06 Each by ity of no.1-dha 00:00: 00:00 mouth [place] (VITAFOL 00 :00 daily. Medical ULTRA) 29 Branch mg iron- 1 mg-200 mg Cap PNV 67-iron 0 2023- No [id number] 1{each} Take 1 [facility] ps-folate 6-14 02-06 Each by ity of no.1-dha 00:00: 00:00 mouth [place] (VITAFOL 00 :00 daily. Medical ULTRA) 29 Branch mg iron- 1 mg-200 mg Cap metroNIDAZO 2021-0 Yes [id number] 500mg Take 1 [facility] 500 mg 4-02 tablet by ity o f tablet 00:00: mouth [place] 00 every 12 Medical (twelve) Branch hours. metroNIDAZO 2021-0 Yes [id number] 500mg Take 1 [facility] 500 mg 4-02 tablet by ity o f tablet 00:00: mouth [place] 00 every 12 Medical (twelve) Branch hours. metroNIDAZO 2021-0 Yes [id number] 500mg Take 1 [facility] 500 mg 4-02 tablet by ity o f tablet 00:00: mouth [place] 00 every 12 Medical (twelve) Branch hours. metroNIDAZO 2021-0 Yes [id number] 500mg Take 1 [facility] 500 mg 4-02 tablet by ity o f tablet 00:00: mouth [place] 00 every 12 Medical (twelve) Branch hours. metroNIDAZO 2021-0 Yes [id number] 500mg Take 1 [facility] 500 mg 4-02 tablet by ity o f tablet 00:00: mouth [place] 00 every 12 Medical (twelve) Branch hours. metroNIDAZO 2021-0 Yes [id number] 500mg Take 1 [facility] 500 mg 4-02 tablet by ity o f tablet 00:00: mouth [place] 00 every 12 Medical (twelve) Branch hours. metroNIDAZO 2021-0 Yes [id number] 500mg Take 1 [facility] 500 mg 4-02 tablet by ity o f tablet 00:00: mouth [place] 00 every 12 Medical (twelve) Branch hours. metroNIDAZO 2021-0 Yes [id number] 500mg Take 1 [facility] 500 mg 4-02 tablet by ity o f tablet 00:00: mouth [place] 00 every 12 Medical (twelve) Branch hours. metroNIDAZO 2021-0 Yes [id number] 500mg Take 1 [facility] 500 mg 4-02 tablet by ity o f tablet 00:00: mouth [place] 00 every 12 Medical (twelve) Branch hours. metroNIDAZO 2021-0 Yes [id number] 500mg Take 1 [facility] 500 mg 4-02 tablet by ity o f tablet 00:00: mouth [place] 00 every 12 Medical (twelve) Branch hours. metroNIDAZO 2021-0 Yes [id number] 500mg Take 1 [facility] 500 mg 4-02 tablet by ity o f tablet 00:00: mouth [place] 00 every 12 Medical (twelve) Branch hours. metroNIDAZO 2021-0 Yes [id number] 500mg Take 1 [facility] 500 mg 4-02 tablet by ity o f tablet 00:00: mouth [place] 00 every 12 Medical (twelve) Branch hours. metroNIDAZO 2021-0 Yes [id number] 500mg Take 1 [facility] 500 mg 4-02 tablet by ity o f tablet 00:00: mouth [place] 00 every 12 Medical (twelve) Branch hours. metroNIDAZO 2021-0 Yes [id number] 500mg Take 1 [facility] 500 mg 4-02 tablet by ity o f tablet 00:00: mouth [place] 00 every 12 Medical (twelve) Branch hours. metroNIDAZO 2021-0 Yes [id number] 500mg Take 1 [facility] 500 mg 4-02 tablet by ity o f tablet 00:00: mouth [place] 00 every 12 Medical (twelve) Branch hours. metroNIDAZO 2021-0 Yes [id number] 500mg Take 1 [facility] 500 mg 4-02 tablet by ity o f tablet 00:00: mouth [place] 00 every 12 Medical (twelve) Branch hours. metroNIDAZO 2021-0 Yes [id number] 500mg Take 1 [facility] 500 mg 4-02 tablet by ity o f tablet 00:00: mouth [place] 00 every 12 Medical (twelve) Branch hours. metroNIDAZO 2021-0 Yes [id number] 500mg Take 1 [facility] 500 mg 4-02 tablet by ity o f tablet 00:00: mouth [place] 00 every 12 Medical (twelve) Branch hours. metroNIDAZO 2021-0 Yes [id number] 500mg Take 1 [facility] 500 mg 4-02 tablet by ity o f tablet 00:00: mouth [place] 00 every 12 Medical (twelve) Branch hours. metroNIDAZO 2021-0 Yes [id number] 500mg Take 1 [facility] 500 mg 4-02 tablet by ity o f tablet 00:00: mouth [place] 00 every 12 Medical (twelve) Branch hours. metroNIDAZO 2021-0 Yes [id number] 500mg Take 1 [facility] 500 mg 4-02 tablet by ity o f tablet 00:00: mouth [place] 00 every 12 Medical (twelve) Branch hours. metroNIDAZO 2021-0 Yes [id number] 500mg Take 1 [facility] 500 mg 4-02 tablet by ity o f tablet 00:00: mouth [place] 00 every 12 Medical (twelve) Branch hours. metroNIDAZO 2021-0 Yes [id number] 500mg Take 1 [facility] 500 mg 4-02 tablet by ity o f tablet 00:00: mouth [place] 00 every 12 Medical (twelve) Branch hours. metroNIDAZO 2021-0 Yes [id number] 500mg Take 1 [facility] 500 mg 4-02 tablet by ity o f tablet 00:00: mouth [place] 00 every 12 Medical (twelve) Branch hours. metroNIDAZO 2021-0 Yes [id number] 500mg Take 1 [facility] 500 mg 4-02 tablet by ity o f tablet 00:00: mouth [place] 00 every 12 Medical (twelve) Branch hours. metroNIDAZO 2021-0 Yes [id number] 500mg Take 1 [facility] 500 mg 4-02 tablet by ity o f tablet 00:00: mouth [place] 00 every 12 Medical (twelve) Branch hours. metroNIDAZO 2021-0 Yes [id number] 500mg Take 1 [facility] 500 mg 4-02 tablet by ity o f tablet 00:00: mouth [place] 00 every 12 Medical (twelve) Branch hours. metroNIDAZO 2021-0 Yes [id number] 500mg Take 1 [facility] 500 mg 4-02 tablet by ity o f tablet 00:00: mouth [place] 00 every 12 Medical (twelve) Branch hours. metroNIDAZO 2021-0 Yes [id number] 500mg Take 1 [facility] 500 mg 4-02 tablet by ity o f tablet 00:00: mouth [place] 00 every 12 Medical (twelve) Branch hours. metroNIDAZO 2021-0 Yes [id number] 500mg Take 1 [facility] 500 mg 4-02 tablet by ity o f tablet 00:00: mouth [place] 00 every 12 Medical (twelve) Branch hours. metroNIDAZO 2021-0 Yes [id number] 500mg Take 1 [facility] 500 mg 4-02 tablet by ity o f tablet 00:00: mouth [place] 00 every 12 Medical (twelve) Branch hours. metroNIDAZO 2021-0 Yes [id number] 500mg Take 1 [facility] 500 mg 4-02 tablet by ity o f tablet 00:00: mouth [place] 00 every 12 Medical (twelve) Branch hours. metroNIDAZO 2-0 Yes [id number] 500mg Take 1 [facility] 500 mg 4-02 tablet by ity o f tablet 00:00: mouth [place] 00 every 12 Medical (twelve) Branch hours. metroNIDAZO 2-0 Yes [id number] 500mg Take 1 [facility] 500 mg 4-02 tablet by [facility] o f tablet 00:00: mouth [place] 00 every 12 Medical (twelve) Branch hours. metroNIDAZO 2-0 Yes [id number] 500mg Take 1 [facility] 500 mg 4-02 tablet by [facility] o f tablet 00:00: mouth [place] 00 every 12 Medical (twelve) Branch hours. metroNIDAZO 2-0 Yes [id number] 500mg Take 1 [facility] 500 mg 4-02 tablet by [facility] o f tablet 00:00: mouth [place] 00 every 12 Medical (twelve) Branch hours. metroNIDAZO 2021-0 Yes [id number] 500mg Take 1 [facility] 500 mg 4-02 tablet by [facility] o f tablet 00:00: mouth [place] 00 every 12 Medical (twelve) Branch hours. metroNIDAZO 2-0 Yes [id number] 500mg Take 1 [facility] 500 mg 4-02 tablet by ity o f tablet 00:00: mouth [place] 00 every 12 Medical (twelve) Branch hours. metroNIDAZO 2-0 Yes [id number] 500mg Take 1 [facility] 500 mg 4-02 tablet by ity o f tablet 00:00: mouth [place] 00 every 12 Medical (twelve) Branch hours. metroNIDAZO 2-0 Yes [id number] 500mg Take 1 [facility] 500 mg 4-02 tablet by ity o f tablet 00:00: mouth [place] 00 every 12 Medical (twelve) Branch hours. metroNIDAZO 2022-0 Yes [id number] 500mg Take 1 [facility] 500 mg 4-02 tablet by ity o f tablet 00:00: mouth [place] 00 every 12 Medical (twelve) Branch hours. metroNIDAZO 2022-0 Yes [id number] 500mg Take 1 [facility] 500 mg 4-02 tablet by ity o f tablet 00:00: mouth [place] 00 every 12 Medical (twelve) Branch hours. metroNIDAZO Yes [id number] 500mg Take 1 [facility] 500 mg 4-02 tablet by ity o f tablet 00:00: mouth [place] 00 every 12 Medical (twelve) Branch hours. metroNIDAZO Yes [id number] 500mg Take 1 [facility] 500 mg 4-02 tablet by ity o f tablet 00:00: mouth [place] 00 every 12 Medical (twelve) Branch hours. metroNIDAZO 2022- No [id number] 500mg Take 1 [facility] 500 mg 4-02 02-07 tablet by ity of tablet 00:00: 00:00 mouth [place] 00 :00 every 12 Medical (twelve) Branch hours. metroNIDAZO 2022- No [id number] 500mg Take 1 [facility] LE 500 mg 4-02 02-07 tablet by ity of tablet 00:00: 00:00 mouth [place] 00 :00 every 12 Medical (twelve) Branch hours. metroNIDAZO 2022- No [id number] 500mg Take 1 [facility] LE 500 mg 4-02 02-07 tablet by ity of tablet 00:00: 00:00 mouth [place] 00 :00 every 12 Medical (twelve) Branch hours. norethindro Yes [id number] 1{tbl} Take 1 [facility] ne-e.estrad 8-24 tablet by ity of ioL-iron 00:00: mouth [place] 1.5 mg-30 00 daily. Medical mcg (21)/75 Branch mg (7) per tablet norethindro 2021- No [id number] 1{tbl} Take 1 [facility] ne-e.estrad 8-24 -12 tablet by it y of ioL-iron 00:00: 00:00 mouth [place] 1.5 mg-30 00 :00 daily. Medical mcg (21)/75 Branch mg (7) per tablet norethindro 2021- No [id number] 1{tbl} Take 1 [facility] ne-e.estrad 8-24 -12 tablet by it y of ioL-iron 00:00: 00:00 mouth [place] 1.5 mg-30 00 :00 daily. Medical mcg (21)/75 Branch mg (7) per tablet Immunizations Ordered Filled Date Status Comments Source Immunization Name Immunization Name TDAP 2022-05-15 Completed [facility] 00:00:00 [facility] TDAP 2022-05-15 Completed [facility] 00:00:00 [facility] TDAP 2022-05-15 Completed [facility] 00:00:00 [facility] TDAP 2022-05-15 Completed [facility] 00:00:00 [facility] TDAP 2022-05-15 Completed [facility] 00:00:00 [facility] TDAP 2022-05-15 Completed [facility] 00:00:00 [facility] TDAP 2022-05-15 Completed [facility] 00:00:00 [facility] TDAP 2022-05-15 Completed [facility] 00:00:00 [facility] TDAP 2022-05-15 Completed [facility] 00:00:00 [facility] TDAP 2022-05-15 Completed [facility] 00:00:00 [facility] TDAP 2022-05-15 Completed [facility] 00:00:00 [facility] TDAP 2022-05-15 Completed [facility] 00:00:00 [facility] TDAP 2022-05-15 Completed [facility] 00:00:00 [facility] TDAP 2022-05-15 Completed [facility] 00:00:00 [facility] TDAP 2022-05-15 Completed [facility] 00:00:00 [facility] TDAP 2022-05-15 Completed [facility] 00:00:00 [facility] TDAP 2022-05-15 Completed [facility] 00:00:00 [facility] TDAP 2022-05-15 Completed [facility] 00:00:00 [facility] TDAP 2022-05-15 Completed [facility] 00:00:00 [facility] TDAP 2022-05-15 Completed [facility] 00:00:00 [facility] TDAP 2022-05-15 Completed [facility] 00:00:00 [facility] TDAP 2022-05-15 Completed [facility] 00:00:00 [facility] TDAP 2022-05-15 Completed [facility] 00:00:00 [facility] TDAP 2022-05-15 Completed [facility] 00:00:00 [facility] TDAP 2022-05-15 Completed [facility] 00:00:00 [facility] TDAP 2022-05-15 Completed [facility] 00:00:00 [facility] TDAP 2022-05-15 Completed [facility] 00:00:00 [facility] TDAP 2022-05-15 Completed [facility] 00:00:00 [facility] TDAP 2022-05-15 Completed [facility] 00:00:00 [facility] TDAP 2022-05-15 Completed [facility] 00:00:00 [facility] TDAP 2022-05-15 Completed [facility] 00:00:00 [facility] TDAP 2022-05-15 Completed [facility] 00:00:00 [facility] TDAP 2022-05-15 Completed [facility] 00:00:00 [facility] TDAP 2022-05-15 Completed [facility] 00:00:00 [facility] TDAP 2022-05-15 Completed [facility] 00:00:00 [facility] TDAP 2022-05-15 Completed [facility] 00:00:00 [facility] PPD (TB) 2022-02-07 Completed [facility] 00:00:00 [facility] PPD (TB) 2022-02-07 Completed [facility] 00:00:00 [facility] PPD (TB) 2022-02-07 Completed [facility] 00:00:00 [facility] PPD (TB) 2022-02-07 Completed [facility] 00:00:00 [facility] PPD (TB) 2022-02-07 Completed [facility] 00:00:00 [facility] PPD (TB) 2022-02-07 Completed [facility] 00:00:00 [facility] PPD (TB) 2022-02-07 Completed [facility] 00:00:00 [facility] PPD (TB) 2022-02-07 Completed [facility] 00:00:00 [facility] PPD (TB) 2022-02-07 Completed [facility] 00:00:00 [facility] PPD (TB) 2022-02-07 Completed [facility] 00:00:00 [facility] PPD (TB) 2022-02-07 Completed [facility] 00:00:00 [facility] PPD (TB) 2022-02-07 Completed [facility] 00:00:00 [facility] PPD (TB) 2022-02-07 Completed [facility] 00:00:00 [facility] PPD (TB) 2022-02-07 Completed [facility] 00:00:00 [facility] PPD (TB) 2022-02-07 Completed [facility] 00:00:00 [facility] PPD (TB) 2022-02-07 Completed [facility] 00:00:00 [facility] PPD (TB) 2022-02-07 Completed [facility] 00:00:00 [facility] PPD (TB) 2022-02-07 Completed [facility] 00:00:00 [facility] PPD (TB) 2022-02-07 Completed [facility] 00:00:00 [facility] PPD (TB) 2022-02-07 Completed [facility] 00:00:00 [facility] PPD (TB) 2022-02-07 Completed [facility] 00:00:00 [facility] PPD (TB) 2022-02-07 Completed [facility] 00:00:00 [facility] PPD (TB) 2022-02-07 Completed [facility] 00:00:00 [facility] PPD (TB) 2022-02-07 Completed [facility] 00:00:00 [facility] PPD (TB) 2022-02-07 Completed [facility] 00:00:00 [facility] PPD (TB) 2022-02-07 Completed [facility] 00:00:00 [facility] PPD (TB) 2022-02-07 Completed [facility] 00:00:00 [facility] PPD (TB) 2022-02-07 Completed [facility] 00:00:00 [facility] PPD (TB) 2022-02-07 Completed [facility] 00:00:00 [facility] PPD (TB) 2022-02-07 Completed [facility] 00:00:00 [facility] PPD (TB) 2022-02-07 Completed [facility] 00:00:00 [facility] PPD (TB) 2022-02-07 Completed [facility] 00:00:00 [facility] PPD (TB) 2022-02-07 Completed [facility] 00:00:00 [facility] PPD (TB) 2022-02-07 Completed [facility] 00:00:00 [facility] PPD (TB) 2022-02-07 Completed [facility] 00:00:00 [facility] PPD (TB) 2022-02-07 Completed [facility] 00:00:00 [facility] Influenza Virus 2020-06-10 Completed Universit y of [facility] .5 mL 00:00:00 [facility] IM 6+ MO Branch Influenza Virus 2020-06-10 Completed [facility]it y of [facility] .5 mL 00:00:00 [facility] IM 6+ MO Branch Influenza Virus 2020-06-10 Completed [facility] y of [facility] .5 mL 00:00:00 [place] [facility] IM 6+ MO [facility] Influenza Virus 2020-06-10 Completed [facility] y of [facility] .5 mL 00:00:00 [place] [facility] IM 6+ MO Branch Influenza Virus 2020-06-10 Completed [facility] y of [facility] .5 mL 00:00:00 [place] [facility] IM 6+ MO [facility] Influenza Virus 2020-06-10 Completed [facility] y of [facility] .5 mL 00:00:00 [place] [facility] IM 6+ MO [facility] Influenza Virus 2020-06-10 Completed [facility] y of [facility] .5 mL 00:00:00 [place] [facility] IM 6+ MO [facility] Influenza Virus 2020-06-10 Completed [facility] y of [facility] .5 mL 00:00:00 [place] [facility] IM 6+ MO [facility] Influenza Virus 2020-06-10 Completed [facility] y of [facility] .5 mL 00:00:00 [place] [facility] IM 6+ MO [facility] Influenza Virus 2020-06-10 Completed [facility] y of [facility] .5 mL 00:00:00 [place] [facility] IM 6+ MO [facility] Influenza Virus 2020-06-10 Completed [facility] y of [facility] .5 mL 00:00:00 [place] [facility] IM 6+ MO [facility] Influenza Virus 2020-06-10 Completed [facility] y of [facility] .5 mL 00:00:00 [place] [facility] IM 6+ MO [facility] Influenza Virus 2020-06-10 Completed [facility] y of [facility] .5 mL 00:00:00 [place] [facility] IM 6+ MO [facility] Influenza Virus 2020-06-10 Completed [facility] y of [facility] .5 mL 00:00:00 [place] [facility] IM 6+ MO [facility] Influenza Virus 2020-06-10 Completed [facility] y of [facility] .5 mL 00:00:00 [place] [facility] IM 6+ MO [facility] Influenza Virus 2020-06-10 Completed [facility] y of [facility] .5 mL 00:00:00 [place] [facility] IM 6+ MO Branch Influenza Virus 2020-06-10 Completed [facility] y of [facility] .5 mL 00:00:00 [place] [facility] IM 6+ MO [facility] Influenza Virus 2020-06-10 Completed [facility] y of [facility] .5 mL 00:00:00 [place] [facility] IM 6+ MO [facility] Influenza Virus 2020-06-10 Completed [facility] y of [facility] .5 mL 00:00:00 [place] [facility] IM 6+ MO [facility] Influenza Virus 2020-06-10 Completed [facility] y of [facility] .5 mL 00:00:00 [place] [facility] IM 6+ MO [facility] Influenza Virus 2020-06-10 Completed [facility] y [facility] .5 mL 00:00:00 [place] [facility] IM 6+ MO [facility] Influenza Virus 2020-06-10 Completed [facility] y of [facility] .5 mL 00:00:00 [place] [facility] IM 6+ MO [facility] Influenza Virus 2020-06-10 Completed [facility] y of [facility] .5 mL 00:00:00 [place] [facility] IM 6+ MO [facility] Influenza Virus 2020-06-10 Completed [facility] y of [facility] .5 mL 00:00:00 [place] [facility] IM 6+ MO [facility] Influenza Virus 2020-06-10 Completed [facility] y of [facility] .5 mL 00:00:00 [place] [facility] IM 6+ MO [facility] Influenza Virus 2020-06-10 Completed [facility] y of [facility] .5 mL 00:00:00 [place] [facility] IM 6+ MO [facility] Influenza Virus 2020-06-10 Completed [facility] y of [facility] .5 mL 00:00:00 [place] [facility] IM 6+ MO [facility] Influenza Virus 2020-06-10 Completed [facility] y of [facility] .5 mL 00:00:00 [place] [facility] IM 6+ MO [facility] Influenza Virus 2020-06-10 Completed [facility] y of [facility] .5 mL 00:00:00 [place] [facility] IM 6+ MO [facility] Influenza Virus 2020-06-10 Completed [facility] y of [facility] .5 mL 00:00:00 [place] [facility] IM 6+ MO [facility] Influenza Virus 2020-06-10 Completed [facility] y of [facility] .5 mL 00:00:00 [place] [facility] IM 6+ MO [facility] Influenza Virus 2020-06-10 Completed [facility] y [facility] .5 mL 00:00:00 [place] [facility] IM 6+ MO [facility] Influenza Virus 2020-06-10 Completed [facility] y [facility] .5 mL 00:00:00 [place] [facility] IM 6+ MO [facility] Influenza Virus 2020-06-10 Completed [facility] y [facility] .5 mL 00:00:00 [place] [facility] IM 6+ MO [facility] Influenza Virus 2020-06-10 Completed [facility] y of [facility] .5 mL 00:00:00 [place] [facility] IM 6+ MO [facility] Influenza Virus 2020-06-10 Completed [facility] y of [facility] .5 mL 00:00:00 [place] [facility] IM 6+ MO Branch Influenza Virus 2020-06-10 Completed [facility] y of [facility] .5 mL 00:00:00 [place] [facility] IM 6+ MO [facility] Influenza Virus 2020-06-10 Completed [facility] y of [facility] .5 mL 00:00:00 [place] [facility] IM 6+ MO Branch Influenza Virus 2020-06-10 Completed [facility] y of [facility] .5 mL 00:00:00 [place] [facility] IM 6+ MO [facility] Influenza Virus 2020-06-10 Completed [facility] y of [facility] .5 mL 00:00:00 [place] [facility] IM 6+ MO Branch Influenza Virus 2020-06-10 Completed [facility] y of [facility] .5 mL 00:00:00 [place] [facility] IM 6+ MO [facility] Influenza Virus 2020-06-10 Completed [facility] y of [facility] .5 mL 00:00:00 [place] [facility] IM 6+ MO Branch Influenza Virus 2020-06-10 Completed [facility] y of [facility] .5 mL 00:00:00 [place] [facility] IM 6+ MO [facility] Influenza Virus 2020-06-10 Completed [facility] y of [facility] .5 mL 00:00:00 [place] [facility] IM 6+ MO [facility] Influenza Virus 2020-06-10 Completed [facility] y of [facility] .5 mL 00:00:00 [place] [facility] IM 6+ MO Branch Influenza Virus 2020-06-10 Completed [facility] y of [facility] .5 mL 00:00:00 [place] [facility] IM 6+ MO Branch Influenza Virus 2020-06-10 Completed [facility] y of [facility] .5 mL 00:00:00 [place] [facility] IM 6+ MO Branch Influenza Virus 2020-06-10 Completed [facility] y of [facility] .5 mL 00:00:00 [place] [facility] IM 6+ MO Branch Influenza Virus 2020-06-10 Completed [facility] y of [facility] .5 mL 00:00:00 [place] [facility] IM 6+ MO Branch Influenza Virus 2020-06-10 Completed [facility] y of [facility] .5 mL 00:00:00 [place] [facility] IM 6+ MO Branch Influenza Virus 2020-06-10 Completed [facility] y of [facility] .5 mL 00:00:00 [place] [facility] IM 6+ MO Branch Influenza Virus 2020-06-10 Completed [facility] y of [facility] .5 mL 00:00:00 [place] [facility] IM 6+ MO Branch Influenza Virus 2020-06-10 Completed [facility] y of [facility] .5 mL 00:00:00 [place] [facility] IM 6+ MO Branch Influenza Virus 2020-06-10 Completed [facility] y of [facility] .5 mL 00:00:00 [place] [facility] IM 6+ MO [facility] Influenza Virus 2020-06-10 Completed [facility] y of [facility] .5 mL 00:00:00 [place] [facility] IM 6+ MO [facility] Influenza Virus 2020-06-10 Completed [facility] y of [facility] .5 mL 00:00:00 [facility] IM 6+ MO Branch PPD (TB) 2019-01-31 Completed [facility] 00:00:00 [facility] PPD (TB) 2019-01-31 Completed [facility] 00:00:00 [facility] PPD (TB) 2019-01-31 Completed [facility] 00:00:00 [facility] PPD (TB) 2019-01-31 Completed [facility] 00:00:00 [facility] PPD (TB) 2019-01-31 Completed [facility] 00:00:00 [facility] PPD (TB) 2019-01-31 Completed [facility] 00:00:00 [facility] PPD (TB) 2019-01-31 Completed [facility] 00:00:00 [facility] PPD (TB) 2019-01-31 Completed [facility] 00:00:00 [facility] PPD (TB) 2019-01-31 Completed [facility] 00:00:00 [facility] PPD (TB) 2019-01-31 Completed [facility] 00:00:00 [facility] PPD (TB) 2019-01-31 Completed [facility] 00:00:00 [facility] PPD (TB) 2019-01-31 Completed [facility] 00:00:00 [facility] PPD (TB) 2019-01-31 Completed [facility] 00:00:00 [facility] PPD (TB) 2019-01-31 Completed [facility] 00:00:00 [facility] PPD (TB) 2019-01-31 Completed [facility] 00:00:00 [facility] PPD (TB) 2019-01-31 Completed [facility] 00:00:00 [facility] PPD (TB) 2019-01-31 Completed [facility] 00:00:00 [facility] PPD (TB) 2019-01-31 Completed [facility] 00:00:00 [facility] PPD (TB) 2019-01-31 Completed [facility] 00:00:00 [facility] PPD (TB) 2019-01-31 Completed [facility] 00:00:00 [facility] PPD (TB) 2019-01-31 Completed [facility] 00:00:00 [facility] PPD (TB) 2019-01-31 Completed [facility] 00:00:00 [facility] PPD (TB) 2019-01-31 Completed [facility] of 00:00:00 [facility] PPD (TB) 2019-01-31 Completed [facility] 00:00:00 [place] [facility] PPD (TB) 2019-01-31 Completed [facility] 00:00:00 [place] [facility] PPD (TB) 2019-01-31 Completed [facility] 00:00:00 [facility] PPD (TB) 2019-01-31 Completed [facility] 00:00:00 [place] [facility] PPD (TB) 2019-01-31 Completed [facility] 00:00:00 [facility] PPD (TB) 2019-01-31 Completed [facility] 00:00:00 [facility] PPD (TB) 2019-01-31 Completed [facility] 00:00:00 [facility] PPD (TB) 2019-01-31 Completed [facility] 00:00:00 [facility] PPD (TB) 2019-01-31 Completed [facility] 00:00:00 [facility] PPD (TB) 2019-01-31 Completed [facility] 00:00:00 [facility] PPD (TB) 2019-01-31 Completed [facility] 00:00:00 [facility] PPD (TB) 2019-01-31 Completed [facility] 00:00:00 [facility] PPD (TB) 2019-01-31 Completed [facility] 00:00:00 [facility] PPD (TB) 2019-01-31 Completed [facility] 00:00:00 [facility] PPD (TB) 2019-01-31 Completed [facility] 00:00:00 [facility] PPD (TB) 2019-01-31 Completed [facility] 00:00:00 [facility] PPD (TB) 2019-01-31 Completed [facility] 00:00:00 [facility] PPD (TB) 2019-01-31 Completed [facility] 00:00:00 [facility] PPD (TB) 2019-01-31 Completed [facility] 00:00:00 [facility] PPD (TB) 2019-01-31 Completed [facility] 00:00:00 [facility] PPD (TB) 2019-01-31 Completed [facility] 00:00:00 [facility] PPD (TB) 2019-01-31 Completed [facility] 00:00:00 [facility] PPD (TB) 2019-01-31 Completed [facility] 00:00:00 [facility] PPD (TB) 2019-01-31 Completed [facility] 00:00:00 [place] [facility] PPD (TB) 2019-01-31 Completed [facility] 00:00:00 [place] [facility] PPD (TB) 2019-01-31 Completed [facility] 00:00:00 [place] [facility] PPD (TB) 2019-01-31 Completed [facility] 00:00:00 [place] [facility] PPD (TB) 2019-01-31 Completed [facility] 00:00:00 [place] [facility] PPD (TB) 2019-01-31 Completed [facility] 00:00:00 [place] [facility] PPD (TB) 2019-01-31 Completed [facility] 00:00:00 [place] [facility] PPD (TB) 2019-01-31 Completed [facility] 00:00:00 [facility] PPD (TB) 2019-01-31 Completed [facility] 00:00:00 [facility] PPD (TB) 2019-01-31 Completed [facility] 00:00:00 [facility] HPV9 2018-05-31 Completed [facility] 00:00:00 [place] [facility] HPV9 2018-05-31 Completed [facility] 00:00:00 [place] [facility] HPV9 2018-05-31 Completed [facility] 00:00:00 [place] [facility] HPV9 2018-05-31 Completed [facility] 00:00:00 [place] [facility] HPV9 2018-05-31 Completed [facility] 00:00:00 [place] [facility] HPV9 2018-05-31 Completed [facility] 00:00:00 [place] [facility] HPV9 2018-05-31 Completed [facility] 00:00:00 [place] [facility] HPV9 2018-05-31 Completed [facility] 00:00:00 [place] [facility] HPV9 2018-05-31 Completed [facility] 00:00:00 [place] [facility] HPV9 2018-05-31 Completed [facility] 00:00:00 [place] [facility] HPV9 2018-05-31 Completed [facility] 00:00:00 [place] [facility] HPV9 2018-05-31 Completed [facility] 00:00:00 [place] [facility] HPV 2012-02-20 Completed [facility] 00:00:00 [place] [facility] HPV 2012-02-20 Completed [facility] 00:00:00 [place] [facility] HPV 2012-02-20 Completed [facility] 00:00:00 [place] [facility] HPV 2012-02-20 Completed [facility] 00:00:00 [place] [facility] HPV 2012-02-20 Completed [facility] 00:00:00 [place] [facility] HPV 2012-02-20 Completed [facility] 00:00:00 [place] [facility] HPV 2012-02-20 Completed [facility] 00:00:00 [facility] HPV 2012-02-20 Completed [facility] 00:00:00 [facility] HPV 2012-02-20 Completed [facility] 00:00:00 [facility] HPV 2012-02-20 Completed [facility] 00:00:00 [facility] HPV 2012-02-20 Completed [facility] 00:00:00 [facility] HPV 2012-02-20 Completed [facility] 00:00:00 [facility] Influenza Virus Unknown Completed [facility] .5 mL [facility] 6+ [facility] (FLUZONE/FLULAVAL/F LUARIX) PPD (TB) Unknown Completed [facility] PPD (TB) Unknown Completed [facility] HPV Unknown Completed [facility] HPV9 Unknown Completed [facility] Influenza Virus Unknown Completed [facility] .5 mL [facility] IM 6+ MO [facility] (FLUZONE/FLULAVAL/F LUARIX) PPD (TB) Unknown Completed [facility] PPD (TB) Unknown Completed [facility] HPV Unknown Completed [facility] HPV9 Unknown Completed [facility] Influenza Virus Unknown Completed [facility] .5 mL [facility] IM 6+ MO Branch (FLUZONE/FLULAVAL/F LUARIX) PPD (TB) Unknown Completed [facility] PPD (TB) Unknown Completed [facility] HPV Unknown Completed [facility] HPV9 Unknown Completed [facility] Influenza Virus Unknown Completed [facility] .5 mL [facility] IM 6+ MO [facility] (FLUZONE/FLULAVAL/F LUARIX) PPD (TB) Unknown Completed [facility] HPV Unknown Completed [facility] HPV9 Unknown Completed [facility] Influenza Virus Unknown Completed [facility] .5 mL [facility] IM 6+ MO Branch (FLUZONE/FLULAVAL/F LUARIX) PPD (TB) Unknown Completed [facility] HPV Unknown Completed [facility] HPV9 Unknown Completed [facility] Influenza Virus Unknown Completed [facility] .5 mL [facility] IM 6+ MO [facility] (FLUZONE/FLULAVAL/F LUARIX) PPD (TB) Unknown Completed [facility] HPV Unknown Completed [facility] HPV9 Unknown Completed [facility] Influenza Virus Unknown Completed [facility] .5 mL [facility] IM 6+ MO [facility] (FLUZONE/FLULAVAL/F LUARIX) PPD (TB) Unknown Completed [facility] HPV Unknown Completed [facility] HPV9 Unknown Completed [facility] Influenza Virus Unknown Completed [facility] .5 mL [facility] IM 6+ MO [facility] (FLUZONE/FLULAVAL/F LUARIX) PPD (TB) Unknown Completed [facility] HPV Unknown Completed [facility] HPV9 Unknown Completed [facility] Influenza Virus Unknown Completed [facility] .5 mL [facility] IM 6+ [facility] (FLUZONE/FLULAVAL/F LUARIX) PPD (TB) Unknown Completed [facility] [facility] HPV Unknown Completed [facility] HPV9 Unknown Completed [facility] PPD (TB) Unknown Completed [facility] HPV Unknown Completed [facility] HPV9 Unknown Completed [facility] Vital Signs Vital Name Observation Time Observation Value Comments Source Systolic blood 2022-09-19 15:53:00 121 mm[Hg] Univer [facility] Diastolic blood 2022-09-19 15:53:00 85 mm[Hg] Unive [facility] Heart rate 2022-09-19 15:53:00 78 /min [facility] Body temperature 2022-09-19 15:53:00 36.28 Marybeth [facility] Respiratory rate 2022-09-19 15:53:00 18 /min [facility] Body height 2022-09-19 15:53:00 154.9 cm [facility] Body weight 2022-09-19 15:53:00 61.689 kg [facility] BMI 2022-09-19 15:53:00 25.70 kg/m2 [facility] Diastolic blood 2022-08-29 22:10:00 74 mm[Hg] Unive [facility] Heart rate 2022-08-29 22:10:00 66 /min [facility] Body temperature 2022-08-29 22:10:00 36.56 Marybeth [facility] Respiratory rate 2022-08-29 22:10:00 18 /min Univ ersity of [facility] Body height 2022-08-29 22:10:00 154.9 cm [facility] Body weight 2022-08-29 22:10:00 61.871 kg [facility] BMI 2022-08-29 22:10:00 25.77 kg/m2 Universi ty of [facility] Systolic blood 2022-08-29 22:10:00 112 mm[Hg] Univer sity of pressure [facility] Systolic blood 2022-08-08 16:12:00 121 mm[Hg] Univer sity of [facility] Diastolic blood 2022-08-08 16:12:00 82 mm[Hg] Unive rsity of pressure [facility] Heart rate 2022-08-08 16:11:00 77 /min Universi ty of [facility] Body temperature 2022-08-08 16:11:00 36.33 Marybeth Univ ersity of [facility] Respiratory rate 2022-08-08 16:11:00 20 /min Univ ersity of [facility] Body height 2022-08-08 16:11:00 152.4 cm Universi ty of [facility] Body weight 2022-08-08 16:11:00 71.215 kg Universi ty of [facility] BMI 2022-08-08 16:11:00 30.66 kg/m2 Universi ty of [facility] Systolic blood 2022-08-01 18:13:00 131 mm[Hg] Univer sity of pressure [facility] Diastolic blood 2022-08-01 18:13:00 86 mm[Hg] Unive rsity of pressure [facility] Heart rate 2022-08-01 18:13:00 79 /min Universi ty of [facility] Body temperature 2022-08-01 18:13:00 37.28 Marybeth [facility] Respiratory rate 2022-08-01 18:13:00 18 /min Univ ersity of [facility] Oxygen saturation in 2022-08-01 18:13:00 98 /min University of Arterial blood by [facility] Pulse oximetry Branch Body height 2022-07-31 14:41:00 152.4 cm [facility] Body weight 2022-07-31 14:41:00 71.215 kg [facility] BMI 2022-07-31 14:41:00 30.66 kg/m2 [facility] Systolic blood 2022-07-31 15:00:00 117 mm[Hg] Univer sity of [facility] Diastolic blood 2022-07-31 15:00:00 75 mm[Hg] Unive rsity of [facility] Heart rate 2022-07-31 15:00:00 86 /min [facility] Body temperature 2022-07-31 15:00:00 36.22 Marybeth [facility] Respiratory rate 2022-07-31 15:00:00 18 /min Univ ersity of [facility] Oxygen saturation in 2022-07-31 15:00:00 100 /min University of Arterial blood by [facility] Pulse oximetry Branch Body height 2022-07-31 14:41:00 152.4 cm [facility] Body weight 2022-07-31 14:41:00 71.215 kg [facility] BMI 2022-07-31 14:41:00 30.66 kg/m2 [facility] Systolic blood 2022-07-25 21:21:00 118 mm[Hg] Univer sity of [facility] Diastolic blood 2022-07-25 21:21:00 86 mm[Hg] Unive rsity of [facility] Heart rate 2022-07-25 21:21:00 83 /min [facility] Body temperature 2022-07-25 21:21:00 36 Marybeth [facility] Respiratory rate 2022-07-25 21:21:00 18 /min [facility] Body height 2022-07-25 21:21:00 152.4 cm [facility] Body weight 2022-07-25 21:21:00 70.761 kg [facility] BMI 2022-07-25 21:21:00 30.47 kg/m2 [facility] Systolic blood 2022-07-19 21:44:00 117 mm[Hg] Univer sity of [facility] Diastolic blood 2022-07-19 21:44:00 78 mm[Hg] Unive rsity of [facility] Heart rate 2022-07-19 21:44:00 91 /min [facility] Body temperature 2022-07-19 21:44:00 36.33 Marybeth [facility] Respiratory rate 2022-07-19 21:44:00 18 /min [facility] Body height 2022-07-19 21:44:00 152.4 cm [facility] Body weight 2022-07-19 21:44:00 68.607 kg [facility] BMI 2022-07-19 21:44:00 29.54 kg/m2 [facility] Systolic blood 2022-07-14 21:45:00 117 mm[Hg] Univer sity of [facility] Diastolic blood 2022-07-14 21:45:00 75 mm[Hg] Unive rsity of [facility] Heart rate 2022-07-14 21:45:00 84 /min [facility] Body temperature 2022-07-14 21:45:00 36.39 Marybeth [facility] Respiratory rate 2022-07-14 21:45:00 18 /min [facility] Body weight 2022-07-14 21:45:00 67.813 kg [facility] BMI 2022-07-14 21:45:00 29.20 kg/m2 [facility] Heart rate 2022-07-06 23:24:00 98 /min [facility] Oxygen saturation in 2022-07-06 23:24:00 99 /min University Arterial blood by [facility] Pulse oximetry Branch Systolic blood 2022-07-06 23:12:00 121 mm[Hg] Univer sity of [facility] Diastolic blood 2022-07-06 23:12:00 83 mm[Hg] Unive rsity of [facility] Body temperature 2022-07-06 22:41:00 36.67 Mayrbeth [facility] Respiratory rate 2022-07-06 22:41:00 18 /min Univ [facility] Body height 2022-07-06 22:41:00 152.4 cm [facility] Body weight 2022-07-06 22:41:00 68.04 kg [facility] BMI 2022-07-06 22:41:00 29.29 kg/m2 [facility] Systolic blood 2022-07-05 21:34:00 128 mm[Hg] Univer sity [facility] Diastolic blood 2022-07-05 21:34:00 85 mm[Hg] Unive rsity of [facility] Heart rate 2022-07-05 21:34:00 102 /min [facility] Body temperature 2022-07-05 21:34:00 36.39 Marybeth [facility] Respiratory rate 2022-07-05 21:34:00 18 /min [facility] Body height 2022-07-05 21:34:00 152.4 cm [facility] Body weight 2022-07-05 21:34:00 68.181 kg [facility] BMI 2022-07-05 21:34:00 29.36 kg/m2 [facility] Systolic blood 2022-06-27 21:23:00 131 mm[Hg] Univer sity of [facility] Diastolic blood 2022-06-27 21:23:00 81 mm[Hg] Unive rsity of [facility] Heart rate 2022-06-27 21:23:00 92 /min [facility] Body temperature 2022-06-27 21:23:00 36.28 Marybeth [facility] Respiratory rate 2022-06-27 21:23:00 18 /min [facility] Body height 2022-06-27 21:23:00 152.4 cm [facility] Body weight 2022-06-27 21:23:00 67.359 kg [facility] BMI 2022-06-27 21:23:00 29.00 kg/m2 [facility] Systolic blood 2022-06-13 16:55:00 126 mm[Hg] Univer sity of [facility] Diastolic blood 2022-06-13 16:55:00 79 mm[Hg] Unive rsity of [facility] Heart rate 2022-06-13 16:55:00 93 /min [facility] Body temperature 2022-06-13 16:55:00 36.94 Marybeth [facility] Respiratory rate 2022-06-13 16:55:00 18 /min Univ [facility] Body height 2022-06-13 16:55:00 152.4 cm [facility] Body weight 2022-06-13 16:55:00 66.254 kg [facility] BMI 2022-06-13 16:55:00 28.53 kg/m2 [facility] Systolic blood 2022-05-30 21:06:00 132 mm[Hg] Univer [facility]ity [facility] Diastolic blood 2022-05-30 21:06:00 77 mm[Hg] Unive rsity of [facility] Heart rate 2022-05-30 21:06:00 91 /min [facility] Body temperature 2022-05-30 21:06:00 36.67 Marybeth [facility] Respiratory rate 2022-05-30 21:06:00 18 /min [facility] Body height 2022-05-30 21:06:00 152.4 cm [facility] Body weight 2022-05-30 21:06:00 65.772 kg [facility] BMI 2022-05-30 21:06:00 28.32 kg/m2 [facility] Systolic blood 2022-05-15 19:56:00 120 mm[Hg] Univer [facility]ity [facility] Diastolic blood 2022-05-15 19:56:00 61 mm[Hg] Unive rsity of [facility] Heart rate 2022-05-15 19:56:00 76 /min [facility] Body temperature 2022-05-15 19:56:00 36.72 Marybeth [facility] Respiratory rate 2022-05-15 19:56:00 16 /min [facility] Body height 2022-05-15 19:56:00 152.4 cm [facility] Body weight 2022-05-15 19:56:00 64.229 kg [facility] BMI 2022-05-15 19:56:00 27.65 kg/m2 [facility] Systolic blood 2022-05-05 21:04:00 127 mm[Hg] Univer sity of [facility] Diastolic blood 2022-05-05 21:04:00 84 mm[Hg] Unive rsity of [facility] Heart rate 2022-05-05 21:04:00 110 /min [facility] Body temperature 2022-05-05 21:04:00 36.5 Marybeth [facility] Respiratory rate 2022-05-05 21:04:00 16 /min [facility] Body height 2022-05-05 21:04:00 152.4 cm [facility] Body weight 2022-05-05 21:04:00 64.229 kg [facility] BMI 2022-05-05 21:04:00 27.65 kg/m2 [facility] Systolic blood 2022-04-17 20:02:00 108 mm[Hg] Univer sity of [facility] Diastolic blood 2022-04-17 20:02:00 70 mm[Hg] Unive rsity of [facility] Heart rate 2022-04-17 20:02:00 78 /min [facility] Body temperature 2022-04-17 20:02:00 36.94 Marybeth [facility] Respiratory rate 2022-04-17 20:02:00 18 /min [facility] Body height 2022-04-17 20:02:00 152.4 cm [facility] Body weight 2022-04-17 20:02:00 61.462 kg [facility] BMI 2022-04-17 20:02:00 26.46 kg/m2 [facility] Systolic blood 2022-03-14 20:52:00 114 mm[Hg] Univer sity of [facility] Diastolic blood 2022-03-14 20:52:00 72 mm[Hg] Unive rsity of [facility] Heart rate 2022-03-14 20:52:00 85 /min [facility] Body temperature 2022-03-14 20:51:00 36.33 Marybeth [facility] Respiratory rate 2022-03-14 20:51:00 18 /min [facility] Body height 2022-03-14 20:51:00 152.4 cm [facility] Body weight 2022-03-14 20:51:00 60.952 kg [facility] BMI 2022-03-14 20:51:00 26.24 kg/m2 [facility] Systolic blood 2022-02-07 19:58:00 114 mm[Hg] Univer [facility]ity [facility] Diastolic blood 2022-02-07 19:58:00 76 mm[Hg] Unive rsity [facility] Heart rate 2022-02-07 19:58:00 89 /min [facility] Body temperature 2022-02-07 19:58:00 36.78 Marybeth [facility] Respiratory rate 2022-02-07 19:58:00 16 /min [facility] Body height 2022-02-07 19:58:00 152.4 cm [facility] Body weight 2022-02-07 19:58:00 62.234 kg [facility] BMI 2022-02-07 19:58:00 26.80 kg/m2 [facility] Systolic blood 2022-01-03 15:42:00 126 mm[Hg] Univer [facility]ity [facility] Diastolic blood 2022-01-03 15:42:00 87 mm[Hg] Unive rsity of [facility] Heart rate 2022-01-03 15:42:00 95 /min [facility] Body temperature 2022-01-03 15:42:00 36.44 Marybeth [facility] Respiratory rate 2022-01-03 15:42:00 16 /min [facility] Body height 2022-01-03 15:42:00 152.4 cm [facility] Body weight 2022-01-03 15:42:00 61.916 kg [facility] BMI 2022-01-03 15:42:00 26.66 kg/m2 [facility] Procedures Procedure Date / Time Performing Clinician Source Performed [facility] PATIENT FINANCIAL 2022-09-19 15:04:48 Doctor Unassigned, No [facility] POLICY Name Medical Branch GALV ONLY - VAGINAL 2022-08-29 22:27:00 Laney Méndez [facility] PATHOGENS BY [facility] ACID TESTING CBC WITH DIFF 2022-08-01 11:05:00 River Kaur [facility] CBC WITH DIFF 2022-08-01 11:05:00 River [facility] VENOUS CORD GAS 2022-07-31 17:16:00 Emmanuellepaloma [facility] VENOUS CORD GAS 2022-07-31 17:16:00 Emmanuellepaloma [facility] SECTION 2022-07-31 16:07:00 Angelita [facility] TUBAL LIGATION 2022-07-31 16:07:00 Angelita Anderson [facility] CBC WITH DIFF 2022-07-31 14:53:00 Emmanuellepaloma [facility] HEPATITIS B SURFACE 2022-07-31 14:53:00 Emmanuellepaloma [facility] SYPHILIS IGG/IGM 2022-07-31 14:53:00 Aislinn [facility] CBC WITH DIFF 2022-07-31 14:53:00 Emmanuellepaloma [facility] HEPATITIS B SURFACE 2022-07-31 14:53:00 Emmanuellepaloma [facility] SYPHILIS IGG/IGM 2022-07-31 14:53:00 [facility] HB ABO GROUPING 2022-07-31 14:34:00 Emmanuellepaloma [facility] RHO (D) IMMUNE GLOBULIN 2022-07-31 14:34:00 Kaur Holman U [facility] HB ABO GROUPING 2022-07-31 14:34:00 [facility] o f [facility] RHO (D) IMMUNE GLOBULIN 2022-07-31 14:34:00 Kaur Holman [facility] HOSPITAL ADMISSION 2022-07-31 06:01:00 Doctor Unassigned, No Uni versity of [facility] POCT URINALYSIS 2022-07-25 21:26:00 Laney Méndez [facility] POCT URINALYSIS 2022-07-19 21:46:00 Laney Méndez [facility] POCT URINALYSIS 2022-07-14 22:31:00 Laney Méndez [facility] CBC WITH DIFF 2022-07-14 22:16:00 Laney Méndez [facility] CONSENT/REFUSAL FOR 2022-07-06 06:01:00 Doctor Unassigned, No [facility] [place] [facility]AT[facility] CONSENT/REFUSAL FOR 2022-07-06 06:01:00 Doctor Unassigned, No Un iversity [facility] DIAGNOSIS AND [facility] GALV ONLY - VAGINAL 2022-07-05 22:34:00 Laney Méndez [facility] [place] PATHOGENS BY [facility] ACID TESTING GC & CHLAMYDIA AMPLIFIED 2022-07-05 22:31:00 Laney Méndez [facility] POCT URINALYSIS 2022-06-27 22:38:00 Laney Méndez [facility] NON-STRESS TEST 2022-06-13 17:39:29 Laney Méndez U [facility] POCT URINALYSIS 2022-06-13 16:55:00 Laney Méndez [facility] POCT URINALYSIS 2022-05-30 21:57:00 Laney Méndez [facility] TDAP VACCINE, >11 YRS, 2022-05-15 20:07:05 Laney Méndez [facility] STERILIZATION CONSENT 2022-05-15 06:01:00 Doctor Unassigned, No [facility] FORM Name [facility] URINE CULTURE 2022-05-05 22:26:00 Laney Méndez [facility] POCT URINALYSIS 2022-05-05 22:14:00 Laney Méndez [facility] GLUCOSE 1 HOUR POST 2022-05-05 22:00:00 [facility]FF 2022-05-05 22:00:00 Laney Méndez [facility] POCT URINALYSIS 2022-04-17 21:31:00 Laney Méndez [facility] POCT URINALYSIS 2022-03-14 20:57:00 Laney Méndez [facility] POCT URINALYSIS 2022-02-07 20:03:00 Laney Méndez [facility] Encounters Start End Encounter Admission Attending Care Care Encounter Source Date/Time Date/Time Type Type Clinicians Facility Department ID 2021-04-25 Outpatient P [facility] ROYCE [id number] Univers 06:14:44 [facility] 2023-04-13 2023-04-13 Outpatient [facility] [id number] Tao 16:20:59 16:20:59 1020 F Moran 2023-02-20 2023-02-20 Outpatient [facility] [id number] Tao 14:00:13 14:00:13 0829 F Malachi 2023-02-10 2023-02-10 Outpatient R UNKNOWN, [facility] [id number] Univers 09:00:00 09:00:00 ATTENDING [facility] 2022-11-14 2022-11-14 Refill Honey COMAN [id number] Univers 00:00:00 00:00:00 Laney White MANAGER INTELLIGENCE [facility]2.686 Robert as MATERNAL [id number] [facility] ical & CHILD [address] [place] [address] 2022-09-19 2022-09-19 Office Honey [facility] [id number] Univers 10:15:00 11:26:17 Visit Laney White MANAGER INTELLIGENCE 350.1.13.10 ity of REGIONAL 4.2.7.2.686 Robert as MATERNAL [id number] [facility] & CHILD [address] [place] [address] 2022-09-19 2022-09-19 Outpatient R HONEY [facility] [id number] [facility] 10:15:00 11:26:17 LANEY ity o f [facility] 2022-09-19 2022-09-19 Orders Doctor TRA [id number] [id number] [facility] 00:00:00 00:00:00 Only Unassigned, SASHA 350.1.13.10 ity of [place] [facility] 4.2.7.2.686 Robert as [phone] [address] 2022-08-29 2022-08-29 Outpatient R HONEY [facility] [id number] [facility] 16:00:00 16:23:52 LANEY ity o f [facility] 2022-08-29 2022-08-29 [facility] [id number] Univers 16:00:00 16:23:52 Laney C MANAGER INTELLIGENCE 350.1.13.10 ity of Visit REGIONAL 4.2.7.2.686 Robert as MATERNAL [id number] [facility] & CHILD [address] [place] [address] 2022-08-08 2022-08-08 Nurse Visit, [facility] Nurse [facility] 1.2 .840.114 [id number] Univers 10:00:00 10:32:46 Visit Laney Méndez MANAGER INTELLIGENCE 350.1.13. 10 ity of REGIONAL 4.2.7.2.686 Robert as MATERNAL [id number] [facility] & CHILD [address] [place] [address] 2022-08-08 2022-08-08 Outpatient R HONEY [facility] [id number] Univers 10:00:00 10:00:00 LANEY ity o f [facility] 2022-08-07 2022-08-07 Telephone [facility] 1.2.840.114 [id number] Univers 00:00:00 00:00:00 Laney White MANAGER INTELLIGENCE 350.1.13.10 ity of REGIONAL 4.2.7.2.686 Robert as MATERNAL [id number] [facility] ical & CHILD [address] [place] [address] 2022-07-31 2022-08-01 Inpatient P ALEXSANDRA [facility] ROYCE [id number] Univers 08:18:00 16:18:00 DESHAWN ity of [facility] 2022-07-31 2022-08-01 Hospital Renée Burgos 1 .2.840.114 [id number] Univers 08:18:00 16:18:00 Encounter Deshawn Tong 350.1.13.1 0 ity of HOSPITAL 4.2.7.2.686 Robert as [id number] [facility] [address] Branch 2022-07-31 2022-07-31 Surgery Angelita DUTTA 1.2.840.114 [id number] Univers 07:15:00 09:01:00 Marcela TIERNEYY 350.1.13.10 ity of Renée rodriguez [facility] 4.2.7.2.686 Robert as [id number] [facility] 013 Branch 2022-07-31 2022-07-31 Orders Doctor DUTTA 1.2.840.114 [id number] Univers 00:00:00 00:00:00 Only Unassigned, SASHA 350.1.13.10 ity of [place] [facility] 4.2.7.2.686 Robert as [id number] [facility] 009 Branch 2022-07-25 2022-07-25 Outpatient R HONEY, [facility] [id number] Univers 15:15:00 15:44:57 LANEY brumfield o f [facility] 2022-07-25 2022-07-25 Routine [facility] [id number] Univers 15:15:00 15:44:57 Laney White MANAGER INTELLIGENCE 350.1.13.10 ity of Visit REGIONAL 4.2.7.2.686 Robert as MATERNAL [id number] [facility] ical & CHILD [address] [place] [address] 2022-07-19 2022-07-19 Outpatient R AKINPE, [facility] [id number] Univers 15:45:00 16:14:38 LANEY brumfield o f [facility] 2022-07-19 2022-07-19 Routine Akinpe, [facility] [id number] Univers 15:45:00 16:14:38 Laney C MANAGER INTELLIGENCE 350.1.13.10 ity of Visit REGIONAL 4.2.7.2.686 Robert as MATERNAL [id number] [facility] & CHILD [address] [place] [address] 2022-07-17 2022-07-17 Telephone [facility] 1.2.840.114 [id number] Univers 00:00:00 00:00:00 Laney C MANAGER INTELLIGENCE 350.1.13.10 ity of REGIONAL 4.2.7.2.686 Robert as MATERNAL [id number] [facility] & CHILD [address] [place] [address] 2022-07-14 2022-07-14 Outpatient R AKINSIPE, [facility] [id number] Univers 15:30:00 16:13:31 LANEYMAHAMED brumfield o f [facility] 2022-07-14 2022-07-14 Routine [facility]unc [facility], [facility] [id number] Univers 15:30:00 16:13:31 Laney C MANAGER INTELLIGENCE 350.1.13.10 ity of Visit REGIONAL 4.2.7.2.686 Robert as MATERNAL [id number] [facility] ical & CHILD [address] [place] [address] 2022-07-12 2022-07-12 Telephone [facility] 1.2.840.114 [id number] Univers 00:00:00 00:00:00 Laney C MANAGER INTELLIGENCE 350.1.13.10 ity of REGIONAL 4.2.7.2.686 Robert as MATERNAL [id number] [facility] & CHILD [address] [place] [address] 2022-07-11 2022-07-11 Outpatient R AKINSIPE, [facility] [id number] Univers 10:00:00 10:00:00 LANEY ity o f [facility] 2022-07-07 2022-07-07 [facility] 1.2.840.114 [id number] Univers 00:00:00 00:00:00 Laney C MANAGER INTELLIGENCE 350.1.13.10 ity of [facility] 4.2.7.2.686 Robert as MATERNAL [id number] [facility] & CHILD [address] [place] [address] 2022-07-06 2022-07-06 [facility] [id number] Univers 16:10:00 17:39:00 [facility]22-07-06 2022-07-06 [facility] GonsaloTRA 1.2.840.114 [id number] Univers 16:10:00 17:39:00 Encounter Bharati Valles SASHA 350.1.13.10 ity of [facility] 4.2.7.2.686 Robert as [phone] [address] 2022-07-06 2022-07-06 [facility]phone [facility] 1.2.840.114 [id number] Univers 00:00:00 00:00:00 Laney C MANAGER INTELLIGENCE 350.1.13.10 ity of [facility] 4.2.7.2.686 Robert as MATERNAL [id number] [facility] & CHILD [address] [place] [address] 2022-07-05 2022-07-05 [facility] [id number] Univers 14:45:00 15:53:55 LANEY ity o f [facility] 2022-07-05 2022-07-05 [facility] 1.2.266.356 [id number] Univers 14:45:00 15:53:55 Laney C MANAGER INTELLIGENCE 350.1.13.10 ity of Visit [facility] 4.2.7.2.686 Robert as MATERNAL [id number] [facility] & CHILD [address] [place] [address] 2022-06-27 2022-06-27 [facility] [id number] Univers 14:45:00 15:41:06 LANEY ity o f [facility] 2022-06-27 2022-06-27 Routine Akinsipe, [facility] 1.2.911.780 [id number] Univers 14:45:00 15:41:06 Lanye C MANAGER INTELLIGENCE 350.1.13.10 ity of Visit REGIONAL 4.2.7.2.686 Robert as MATERNAL [id number] [facility] & CHILD [address] [place] [address] 2022-06-27 2022-06-27 Telephone Akinpe, [facility] 1.2.840.114 [id number] Univers 00:00:00 00:00:00 Laney C MANAGER INTELLIGENCE 350.1.13.10 ity of REGIONAL 4.2.7.2.686 Robert as MATERNAL [id number] [facility] & [address] 2022-06-15 2022-06-15 Outpatient R AKINSIPE, [facility] [id number] Univers 16:00:00 16:00:00 LANEY ity o f [facility] 2022-06-13 2022-06-13 Outpatient R AKINSIPE, [facility] [id number] Univers 09:30:00 11:41:29 LANEY ity o f [facility] 2022-06-13 2022-06-13 Routine Akinsipe, [facility] 1.2.616.269 [id number] Univers 09:30:00 11:41:29 Laney C MANAGER INTELLIGENCE 350.1.13.10 ity of Visit REGIONAL 4.2.7.2.686 Robert as MATERNAL [phone] [facility] & CHILD [address] [place] [address] 2022-06-13 2022-06-13 Telephone Akinsipe, [facility] 1.2.840.114 [id number] Univers 00:00:00 00:00:00 Laney C MANAGER INTELLIGENCE 350.1.13.10 ity of REGIONAL 4.2.7.2.686 Robert as MATERNAL [id number] [facility] & CHILD [address] [place] [address] 2022-05-30 2022-05-30 Outpatient R AKINSIPE, [facility] [id number] Univers 14:45:00 15:55:39 LANEY ity o f [facility] 2022-05-30 2022-05-30 Routine [facility] 1.2.516.384 [id number] Univers 14:45:00 15:55:39 Laney C MANAGER INTELLIGENCE 350.1.13.10 ity of Visit REGIONAL 4.2.7.2.686 Robert as MATERNAL [id number] [facility] & CHILD [address] [place] [address] 2022-05-15 2022-05-15 Routine [facility] 1.2.825.049 [id number] Univers 13:30:00 13:45:00 Laney C MANAGER INTELLIGENCE 350.1.13.10 ity of Visit REGIONAL 4.2.7.2.686 Robert as MATERNAL [phone] [facility] & [address] 2022-05-15 2022-05-15 Technical Marketing Engineer Ultrasound, Danny [facility] 1.2 .840.114 [id number] Univers 09:15:00 10:00:00 Visit Mendoza Romo MANAGER INTELLIGENCE 350.1.13.1 0 ity of REGIONAL 4.2.7.2.686 Robert as MATERNAL [id number] [facility] & CHILD [address] [place] [address] 2022-05-15 2022-05-15 Outpatient P DEMETRIUS [facility] [id number] Univers 09:15:00 09:47:43 MENDOZA brumfield of [facility] 2022-05-15 2022-05-15 Letter [facility] 1.2.898.774 [id number] Univers 00:00:00 00:00:00 (Out) Laney C MANAGER INTELLIGENCE 350.1.13.10 ity of REGIONAL 4.2.7.2.686 Robert as MATERNAL [id number] [facility] & CHILD [address] [place] [address] 2022-05-15 2022-05-15 Orders Doctor DUTTA 1.2.840.114 [id number] Univers 00:00:00 00:00:00 Only Unassigned, SASHA 350.1.13.10 ity of [place] [facility] 4.2.7.2.686 Robert as [phone] [address] 2022-05-15 2022-05-15 Letter [facility] 1.2.840.114 [id number] Univers 00:00:00 00:00:00 (Out) Mendoza Mack MANAGER INTELLIGENCE 350.1.13.10 ity of REGIONAL 4.2.7.2.686 Robert as MATERNAL [phone] Med ical & CHILD [address] [facility] 2022-05-08 2022-05-08 Patient [facility] 1.2.058.589 [id number] Univers 00:00:00 00:00:00 Secure Msg Laney C MANAGER INTELLIGENCE 350.1.13.10 ity of REGIONAL 4.2.7.2.686 Robert as MATERNAL [phone] [facility] ical & CHILD [address] [place] [address] 2022-05-08 2022-05-08 Telephone [facility] 1.2.840.114 [id number] Univers 00:00:00 00:00:00 Laney C MANAGER INTELLIGENCE 350.1.13.10 ity of REGIONAL 4.2.7.2.686 Robert as MATERNAL [id number] [facility] & CHILD [address] [place] [address] 2022-05-05 2022-05-05 [facility] [id number] Univers 15:00:00 15:16:59 LANEY brumfield o f [facility] 2022-05-05 2022-05-05 Routine [facility] 1.2.511.043 [id number] Univers 15:00:00 15:16:59 Laney C MANAGER INTELLIGENCE 350.1.13.10 ity of Visit REGIONAL 4.2.7.2.686 Robert as MATERNAL [phone] [facility] & CHILD [address] [place] [address] 2022-05-01 2022-05-01 [facility] [id number] Univers 12:45:00 12:45:00 LANEY brumfield o f [facility] 2022-04-17 2022-04-17 [facility] [id number] Univers 14:45:00 15:17:55 LANEY ity o f [facility] 2022-04-17 2022-04-17 Routine [facility] 1.2.797.244 [id number] [facility] 14:45:00 15:17:55 Laney C MANAGER INTELLIGENCE 350.1.13.10 ity of Visit REGIONAL 4.2.7.2.686 Robert as MATERNAL [phone] [facility] & CHILD [address] [place] [address] 2022-04-11 2022-04-11 Outpatient R HONEY [facility] [id number] [facility] 10:30:00 10:30:00 LANEY ity o f [facility] 2022-04-11 2022-04-11 Telephone [facility] 1.2.840.114 [id number] Univers 00:00:00 00:00:00 Laney C MANAGER INTELLIGENCE 350.1.13.10 ity of REGIONAL 4.2.7.2.686 Robert as MATERNAL [phone] [facility] & CHILD [address] [place] [address] 2022-04-05 2022-04-05 Patient [facility] 1.2.973.066 [id number] Univers 00:00:00 00:00:00 Secure Msg Laney C MANAGER INTELLIGENCE 350.1.13.10 ity of REGIONAL 4.2.7.2.686 Robert as MATERNAL [id number] [facility] & [address] 2022-04-04 2022-04-04 Abstract [facility] 1.2.840.114 [id number] Univers 00:00:00 00:00:00 Laney C MANAGER INTELLIGENCE 350.1.13.10 ity of REGIONAL 4.2.7.2.686 Robert as MATERNAL [phone] [facility] & [address] 2022-03-30 2022-03-30 Technical Marketing Engineer Ultrasound, [facility] 1.2 .840.114 [id number] Univers 08:30:00 09:15:43 Visit Wilmer Post MANAGER INTELLIGENCE 350.1. 13.10 ity of REGIONAL 4.2.7.2.686 Robert as MATERNAL [phone] [facility] & CHILD [address] [facility] 2022-03-30 2022-03-30 Outpatient P SINCERE [facility] [id number] Univers 08:30:00 08:30:00 CHASEY ity of [facility] 2022-03-20 2022-03-20 Outpatient R AKINKELLE, [facility] [id number] Univers 14:45:00 14:45:00 LANEY itnelson o [facility] 2022-03-17 2022-03-17 [facility] 1.2.156.013 [id number] Univers 00:00:00 00:00:00 Secure Msg Laney C MANAGER INTELLIGENCE 350.1.13.10 ity of REGIONAL 4.2.7.2.686 Robert as MATERNAL [id number] [facility] & CHILD [address] [place] [address] 2022-03-16 2022-03-16 Telephone [facility] 1.2.840.114 [id number] Univers 00:00:00 00:00:00 Laney C MANAGER INTELLIGENCE 350.1.13.10 ity of REGIONAL 4.2.7.2.686 Robert as MATERNAL [id number] [facility] & CHILD [address] [place] [address] 2022-03-14 2022-03-14 Outpatient R HONEY, [facility] [id number] Univers 15:45:00 16:14:07 LANEY ity o [facility] 2022-03-14 2022-03-14 Routine [facility] 1.2.483.866 [id number] Univers 15:45:00 16:14:07 Laney C MANAGER INTELLIGENCE 350.1.13.10 ity of Visit REGIONAL 4.2.7.2.686 Robert as MATERNAL [id number] [facility] & CHILD [address] [place] [address] 2022-03-06 2022-03-06 Outpatient R AKINKELLE, [facility] [id number] Univers 14:45:00 14:45:00 LANEY ity o [facility] 2022-02-16 2022-02-16 Outpatient R ADUM, [facility] [id number] Univers 15:30:00 15:30:00 BARB [facility] 2022-02-16 2022-02-16 Outpatient R ADUM, [facility] [id number] Univers 15:30:00 15:30:00 [facility] 2022-02-16 2022-02-16 Outpatient R ADUM, [facility] [id number] Univers 15:30:00 15:30:00 [facility] 2022-02-07 2022-02-07 Outpatient R AKINMATTPE, [facility] [id number] Univers 14:45:00 15:21:51 LANEY brumfield o [facility] 2022-02-07 2022-02-07 [facility] 1.2.752.558 [id number] Univers 14:45:00 15:21:51 Laney White MANAGER INTELLIGENCE 350.1.13.10 ity of Visit REGIONAL 4.2.7.2.686 Robert as MATERNAL [phone] [facility] ical & CHILD [address] [place] [address] 2022-01-31 2022-01-31 [facility] [id number] Univers 09:45:00 09:45:00 LANEY brumfield o [facility] 2022-01-27 2022-01-27 Outpatient R BLAINE, [facility] [id number] Univers 12:15:00 12:15:00 CASSANDRA brumfield [facility] 2022-01-27 2022-01-27 Technical Marketing Engineer 5, [facility] Room UNIVERSIT 1 .2.840.114 [id number] Univers 11:15:00 11:48:51 Visit Brianna Montes [facility] 350.1.13.10 ity of [place] [id number] [address] 2022-01-27 2022-01-27 Abstract [facility] 1.2.840.114 [id number] Univers 00:00:00 00:00:00 Laney White MANAGER INTELLIGENCE 350.1.13.10 ity of REGIONAL 4.2.7.2.686 Robert as MATERNAL [id number] [facility] & CHILD [address] [place] [address] 2022-01-03 2022-01-03 [facility], [facility] [id number] Univers 10:30:00 11:07:52 LANEY brumfield o f [facility] 2022-01-03 2022-01-03 Routine [facility], [facility] 1.2.922.017 [id number] Univers 10:30:00 11:07:52 Laney Cindy MANAGER INTELLIGENCE 350.1.13.10 ity of Visit REGIONAL 4.2.7.2.686 Robert as MATERNAL [phone] [facility] & CHILD [address] [place] [address] 2022-01-03 2022-01-03 Outpatient R [facility], [facility], [facility] [id number] Univers 10:30:00 10:30:00 LANEY valles [facility] 2022-01-02 2022-01-02 Technical Marketing Engineer 1, [facility] 1.2. 840.114 [id number] Univers 11:00:00 12:03:03 Visit Deshawn Tong MANAGER INTELLIGENCE 350.1.13.10 ity of REGIONAL 4.2.7.2.686 Robert as MATERNAL [id number] [facility] & CHILD [address] [place] [address] 2022-01-02 2022-01-02 Outpatient P ALEXSANDRA [facility] [id number] Univers 11:00:00 11:00:00 DESHAWN [facility] 2021-12-23 2021-12-23 Outpatient R ADUM, [facility] [id number] Univers 09:30:00 09:30:00 [facility] 2021-12-[facility] 2021-12-23 Outpatient R ADUM, [facility] [id number] Univers 09:30:00 09:30:00 BARB [facility] 2021-12-19 2021-12-19 Telephone [facility] 1.2.840.114 [id number] Univers 00:00:00 00:00:00 Laney C MANAGER INTELLIGENCE 350.1.13.10 ity of [facility] 4.2.7.2.686 Robert as MATERNAL [id number] [facility] & CHILD [address] [place] [address] 2021-12-07 2021-12-07 Telephone [facility] 1.2.840.114 [id number] Univers 00:00:00 00:00:00 Laney White MANAGER INTELLIGENCE 350.1.13.10 ity of [facility] 4.2.7.2.686 Robert as MATERNAL [id number] [facility] & [address] 2021-12-06 2021-12-06 Outpatient R AD, [facility] [id number] Univers 14:30:00 14:30:00 BARB brumfield [facility] 2021-12-06 2021-12-06 Outpatient R [facility] [id number] Univers 08:30:00 09:54:48 LANEY brumfield o f [facility] 2021-12-06 2021-12-06 Initial [facility] 1.2.831.193 [id number] Univers 08:30:00 09:54:48 Laney White MANAGER INTELLIGENCE 350.1.13.10 ity of Visit [facility] 4.2.7.2.686 Robert as MATERNAL [id number] [address] 2021-12-06 2021-12-06 Orders Doctor TRA 1.2.840.114 [id number] Univers 00:00:00 00:00:00 Only Unassigned, SASHA 350.1.13.10 ity of [place] [facility] 4.2.7.2.686 Robert as [phone] [address] 2021-10-11 2021-10-11 Telephone Ad, [facility] 1.2.048.488 [id number] Univers 00:00:00 00:00:00 Barb [place] 350.1.13.10 it[place] of [place] [phone] Il dical [facility] [address] [facility] 2021-10-07 2021-10-07 Patient Adum, [facility] 1.2.840.114 [id number] Univers 00:00:00 00:00:00 Secure Msg Barb [place] 350.1.13.10 ity [facility] [place]2.7.[place] [phone] Il dical NAL [address] [facility] 2021-10-06 2021-10-06 Outpatient R [facility] [id number] Univers 13:41:10 23:59:00 BARB ity of [facility] 2021-10-06 2021-10-06 [facility] 1.2.840.114 [id number] Univers 13:41:10 23:59:00 Encounter Barb pSann DELV[place] 350.1.13.10 it[place] [id number] [facility] [address] [place] 2021-10-06 2021-10-06 Orders Doctor TRA 1.2.840.114 [id number] Univers 00:00:00 00:00:00 Only Unassigned, SASHA 350.1.13.10 ity of [place] [facility] 4.2.7.2.686 Robert as [phone] [facility] [address] [place] 2021-09-24 2021-09-24 [facility] 1.2.840.114 [id number] Univers 00:00:00 00:00:00 Management Barb Maria Ines [place] 350.1.13.10 ity of [facility] 4.2.[place] [phone] Il dical NAL [address] [facility] 2021-09-23 2021-09-23 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2.840.114 [id number] Univers 15:00:00 15:44:25 Visit Barb Spann [place] 350.1.13.10 ity of [place]7.2.[place] [phone] Il dic[address] 2021-09-08 2021-09-08 Emergency X KIKA, K [facility] ERT [id number] Univers 18:31:00 20:24:00 ity of [facility] 2021-09-08 2021-09-08 Emergency Kika, K [facility] 1.2.840.114 [id number] Univers 18:31:00 20:24:00 Pauline [place] 350.1.13.10 i ty of [facility] [place]2.7.[place] [id number] [address] 2021-05-26 2021-05-26 Patient Adum, [facility] 1.2.840.114 [id number] Univers 00:00:00 00:00:00 Secure Msg Barb L [place] 350.1.13.10 ity of [place].2.[place] [id number] Il dical NAL [address] [place] [address] 2021-04-20 2021-04-20 Patient Adum, [facility] 1.2.840.114 [id number] Univers 00:00:00 00:00:00 Secure Msg Barb L [place] 350.1.13.10 ity of [place].2.[place] [phone] Il dical NAL [address] [place] [address] 2021-03-02 2021-03-02 Patient Adum, [facility] 1.2.840.114 [id number] Univers 00:00:00 00:00:00 Secure Msg Barb L [place] 350.1.13.10 ity of [place].2.[place] [phone] Il dical NAL [address] [place] [address] 2021-02-17 2021-02-17 Telephone Adum, [facility] 1.2.472.726 [id number] Univers 00:00:00 00:00:00 Barb Spann [place] 350.1.13.10 ity of [place] [phone] Il dical nal [address] [place] [address] 2021-02-17 2021-02-17 Case Adum, [facility] 1.2.840.114 [id number] Univers 00:00:00 00:00:00 Management Barb L [place] 350.1.13.10 ity of [place].2.[place] [phone] Il dical nal [address] [place] [address] 2021-02-15 2021-02-15 Routine Adum, [facility] 1.2.840.114 [id number] Univers 11:02:47 12:17:53 Barb L [place] 350.1.13.10 ity of Visit [place].2.[place] [phone] Il dicdc nal [address] [place] [address] 2021-02-15 2021-02-15 Outpatient R ADUM, [facility] [id number] Univers 11:00:00 11:00:00 BARB ity of [facility] 2021-02-15 2021-02-15 Orders Doctor TRA 1.2.840.114 [id number] Univers 00:00:00 00:00:00 Only Unassigned, SASHA 350.1.13.10 ity of [place] [facility] 4.2.7.2.686 Robert as [phone] [address] 2021-02-10 2021-02-10 Patient Adum, [facility] 1.2.840.114 [id number] Univers 00:00:00 00:00:00 Secure Msg Barb L [place] 350.1.13.10 ity of [place].2.[place] [phone] Il dical NAL [address] [place] [address] 2021-01-25 2021-01-25 Outpatient R ADUM, [facility] [id number] Univers 08:45:00 08:45:00 BARB itnelson [facility] 2021-01-18 2021-01-18 Outpatient R ADUM, [facility] [id number] Univers 14:30:00 14:51:58 BARB ity [facility] 2021-01-18 2021-01-18 Outpatient R ADUM, [facility] [id number] Univers 14:30:00 14:51:58 BARB ity [facility] 2021-01-17 2021-01-17 Outpatient R [facility] [id number] Univers 08:00:00 08:00:00 ity [facility] 2021-01-13 2021-01-13 Outpatient R MARQUEZ, [facility] [id number] Univers 10:30:00 10:30:00 CHRISTINENDA octaviano o f [facility] 2021-01-04 2021-01-04 Outpatient R ADUM, [facility] [id number] Univers 11:15:00 11:15:00 BARB [facility] 2020-12-28 2020-12-28 Outpatient R ADUM, [facility] [id number] Univers 09:15:00 09:15:00 BARB [facility] 2020-12-21 2020-12-21 Outpatient R ADUM, [facility] [id number] Univers 08:00:00 08:00:00 BARB [facility] 2020-12-14 2020-12-14 Outpatient R ADUM, [facility] [id number] Univers 08:15:00 08:15:00 [facility] 2020-12-14 2020-12-14 Patient Adum, [facility] 1.2.840.114 [id number] Univers 00:00:00 00:00:00 Secure Msg Barb [place] 350.1.13.10 ity [facility] 4.2.7.2.686 Carlos rodriguez PROFESSIO [phone] Il dical [address] 2020-12-07 2020-12-07 Outpatient R ADUM, [facility] [id number] Univers 08:30:00 08:30:00 [facility] 2020-11-19 2020-11-19 Outpatient R ADUM, [facility] [id number] Univers 10:15:00 10:15:00 BARB ity [facility] 2020-11-05 2020-11-05 Outpatient R ADUM, [facility] [id number] Univers 10:15:00 10:15:00 BARB [facility] 2020-10-22 2020-10-22 Outpatient R ADUM, [facility] [id number] Univers 10:00:00 10:00:00 BARB [facility] 2020-10-21 2020-10-21 Outpatient R ADOLGA, [facility] [id number] Univers 10:00:00 10:00:00 BARB [facility] 2020-10-15 2020-10-15 Outpatient R [facility] [id number] Univers 13:00:00 13:00:00 [facility] 2020-09-13 2020-09-13 Outpatient P [facility] [id number] Univers 13:00:00 13:00:[facility] 2020-09-03 2020-09-03 Outpatient R ADOLGA, [facility] [id number] Univers 13:30:00 13:30:00 BARB [facility] 2020-08-06 2020-08-06 Outpatient R ADOLGA, [facility] [id number] Univers 08:15:00 08:15:00 [facility] 2020-07-13 2020-07-13 Outpatient R [facility] [id number] Univers 11:45:00 11:45:[facility] Outpatient R ADUM, [facility] [id number] Univers 16:15:00 16:15:00 [facility] 2020-06-10 2020-06-10 Outpatient R AKINSIPE, [facility] [id number] Univers 12:45:00 12:45:00 LANEY itnelson o f [facility] 2020-06-02 2020-06-02 Emergency X MAGAN, [facility] ERT [id number] Univers 16:50:00 20:31:00 MIRIAM brumfield of [facility] 2020-05-17 2020-05-17 Patient Doctor [facility] [id number] Univers 00:00:00 00:00:00 Secure Msg Unassigned, 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 (test code = No- see comment Patient is not a candidate for RhIg- 5055) Patient is Rh P ositive.Performed at [facility] Laboratory Services - [facility] Blood [address] [place], [place] [address]Toll Free: [phone] A No. [id number] [facility] Hospital[facility] (D) IMMUNE [id number] 20:19:11 Test Item Value Reference Range Interpretation Comments RHIG CANDIDATE? No- see comment Patient i s not a (test code = candidate for R hIg- 5055) Patient is Rh Positive.Perfor med at [facility] Laboratory Services - [facility] Blood [address] [place] [address]Aqfe Free: [phone] A No. [id number] [facility] HospitalVenous Cord [id number] 17:31:56 Test Item Value Reference Range Interpretation Comments VENOUS BASE EXCESS, CORD -3.6 mEq/L (test code = 9078284685) VENOUS PH, CORD (test 7.31 7.25-7.45 code = [id number]) VENOUS PC02, CORD (test 47 See_Comment [Au tomated message] code = [id number]) The [employer] which generated this result transmitted ref erence range: 27 - 49 mmHg. The reference r malorie was not used to interpret this result as normal/abnor mal. VENOUS PO2, CORD (test 42 See_Comment H [Aut omated message] code = [id number]) The syste m which generated this result transmitted ref erence range: 17 - 41 mmHg. The reference r malorie was not used to interpret this result as normal/abnor mal. VENOUS BICARBONATE, CORD 23 See_Comment [A utomated message] (test code = 7612992337) The system which generated this result transmitted ref erence range: 12 - 29 mEq/L. The reference r malorie was not used to interpret this result as normal/abnor mal. Lab Interpretation (test Abnormal code = 89569-4) [facility] Cord [id number] 17:31:56 Test Item Value Reference Range Interpretation Comments VENOUS BASE EXCESS, CORD -3.6 mEq/L (test code = 2672792884) VENOUS PH, CORD (test 7.31 7.25-7.45 code = 6715228794) VENOUS PC02, CORD (test 47 See_Comment [Au tomated message] code = 8680938247) The syste m which generated this result transmitted ref erence range: 27 - 49 mmHg. The reference r malorie was not used to interpret this result as normal/abnor mal. VENOUS PO2, CORD (test 42 See_Comment H [Aut omated message] code = 8108564084) The syste m which generated this result transmitted ref erence range: 17 - 41 mmHg. The reference r malorie was not used to interpret this result as normal/abnor mal. VENOUS BICARBONATE, CORD 23 See_Comment [A utomated message] (test code = 1844101483) The system which generated this result transmitted ref erence range: 12 - 29 mEq/L. The reference r maolrie was not used to interpret this result as normal/abnor mal. Lab Interpretation (test Abnormal code = 46475-4) [facility] Cord [id number] 17:28:46 Test Item Value Reference Range Interpretation Comments BASE EXCESS, CORD -2.5 mEq/L (test code = 6172979191) AC PH, CORD (BEAKER) 7.26 7.18-7.38 (test code = 2578988135) PC02, CORD (test code 60 See_Comment [Auto mated message] The = 0979864412) system which g enerated this result transmit daryl reference range : 32 - 66 mmHg. The refer ence range was not used to interpret this result as normal/abnormal . PO2, CORD (test code 21 See_Comment [Autom ated message] The = ) system which g enerated this result transmit daryl reference range : 10 - 30 mmHg. The refer ence range was not used to interpret this result as normal/abnormal . BICARBONATE, CORD 26 See_Comment [Automate d message] The (test code = system which ge nerated this 0502137209) result transmit daryl reference range : 17 - 27 mEq/L. The refe rence range was not used to interpret this result as normal/abnormal . [facility] [id number] 17:28:46 Test Item Value Reference Range Interpretation Comments BASE EXCESS, CORD -2.5 mEq/L (test code = 5031053551) AC PH, CORD (BEAKER) 7.26 7.18-7.38 (test code = 4944233270) PC02, CORD (test code 60 See_Comment [Auto mated message] The = 8339442155) system which g enerated this result transmit daryl reference range : 32 - 66 mmHg. The refer ence range was not used to interpret this result as normal/abnormal . PO2, CORD (test code 21 See_Comment [Autom ated message] The = 2208448140) system which g enerated this result transmit daryl reference range : 10 - 30 mmHg. The refer ence range was not used to interpret this result as normal/abnormal . BICARBONATE, CORD 26 See_Comment [Automate d message] The (test code = system which ge nerated this 3047986422) result transmit daryl reference range : 17 - 27 mEq/L. The refe rence range was not used to interpret this result as normal/abnormal . [facility] Screen - ONCE [id number] 15:36:29 Test Item Value Reference Range Interpretation Comments ABO & RH (test code O POSITIVE Performe d at [facility] = 20) Laboratory [facility]3 [address] [facility] [address]Yjdy Free: [phone] A No. [id number] IAT (test code = Negative Performed a t [facility] 1185) Laboratory [facility] Blood [facility] [address] [facility] [address]Jkhd Free: [phone] A No. [id number] [facility] Screen - ONCE [id number] 15:36:29 Test Item Value Reference Range Interpretation Comments ABO & RH (test code O POSITIVE Performe d at [facility] = 20) Laboratory [facility] Blood [facility] [address] [facility] [address]Mknz Free: [phone] A No. [id number] IAT (test code = Negative Performed a t [facility] 1185) Laboratory [facility] Blood [facility]3 [facility] [address]Rbrc Free: [phone] A No. [id number] [facility] HospitalPO[facility] URINALYSIS W SPECIFIC [id number] 21:27:00 Test Item Value Reference Range Interpretation Comments POCT U SP GRAV (test code = 3255) . 1.005-1.025 POCT PH U (test code = 3254) . 5-8 POCT U LEUK EST (test code = 3263) . Negative - Negative POCT U NIT (test code = 3262) . Negative - Negative POCT U PROT (test code = 3259) 1+ Negative - Negative POCT U GLU (test code = 3256) 1+ Negative - Negative POCT U KETONE (test code = 3258) . Negative - Negative POCT U UROBILI (test code = 3260) . 0.2-1 POCT U BILI (test code = 3261) . Negative - Negative POCT U BLD (test code = 3257) . Negative - Negative POCT U COLOR (test code = 3266) . POCT U APPEAR (test code = 3267) . [facility] Hospital[facility] URIN[facility] W SPECIFIC [id number] 21:46:00 Test Item Value Reference Range Interpretation Comments POCT U SP GRAV (test code = 3255) . 1.005-1.025 POCT PH U (test code = 3254) . 5-8 POCT U LEUK EST (test code = 3263) . Negative - Negative POCT U NIT (test code = 3262) . Negative - Negative POCT U PROT (test code = 3259) Trace Negative - Negative POCT U GLU (test code = 3256) Neg Negative - Negative POCT U KETONE (test code = 3258) . Negative - Negative POCT U UROBILI (test code = 3260) . 0.2-1 POCT U BILI (test code = 3261) . Negative - Negative POCT U BLD (test code = 3257) . Negative - Negative POCT U COLOR (test code = 3266) . POCT U APPEAR (test code = 3267) [facility] WITH [id number] 05:46:31 Test Item Value Reference Range Interpretation Comments WBC (test code = See_Comment [Automated 9590-2) message] The sy stem which generated this result transmitted reference range : 4.30 - 11.10 10*3/?L. The reference range was not used to interpret this result as normal/abnormal . RBC (test code = See_Comment [Automated 789-8) message] The sy stem which generated this result transmitted reference range : 3.93 - 5.25 10*6/?L. The reference range was not used to interpret this result as normal/abnormal . HGB (test code = 10.3 g/dL 11.6-15.0 L 718-7) HCT (test code = 34.8 % 35.7-45.2 L 4544-3) MCV (test code = 83.1 fL 80.6-95.5 787-2) MCH (test code = 24.6 pg 25.9-32.8 L 785-6) MCHC (test code = 29.6 g/dL 31.6-35.1 L 786-4) RDW-SD (test code = 54.3 fL 39.0-49.9 H 15419-7) RDW-CV (test code = 17.9 % 12.0-15.5 H 788-0) PLT (test code = See_Comment [Automated 337-3) message] The sy stem which generated this result transmitted reference range : 166 - 358 10*3/ ?L. The reference r malorie was not used to interpret this result as normal/abnormal . MPV (test code = 11.7 fL 9.5-12.9 56462-5) NRBC/100 WBC (test See_Comment [Automat ed code = [id number]) message] The system which generated this result transmitted reference range : 0.0 - 10.0 /100 WBCs. The refer ence range was not u sed to interpret th is result as normal/abnormal . NRBC x10^3 (test code See_Comment [Auto mated = [id number]) message] The s ystem which generated this result transmitted reference range : 10*3/?L. The reference range was not used to interpret this result as normal/abnormal . GRAN MAT (NEUT) % 68.2 % (test code = 770-8) IMM GRAN % (test code 0.50 % = 6996259333) LYMPH % (test code = 22.7 % 736-9) MONO % (test code = 5.8 % 5905-5) EOS % (test code = 2.1 % 713-8) BASO % (test code = 0.7 % 706-2) GRAN MAT x10^3(ANC) 7.31 10*3/uL 1.88-7.09 H (test code = 6887133093) IMM GRAN x10^3 (test 0.05 10*3/uL 0.00-0.06 code = 5867066125) LYMPH x10^3 (test code 2.43 10*3/uL 1.32-3.29 = 731-0) MONO x10^3 (test code 0.62 10*3/uL 0.33-0.92 = 742-7) EOS x10^3 (test code = 0.23 10*3/uL 0.03-0.39 711-2) BASO x10^3 (test code 0.08 10*3/uL 0.01-0.07 H = 704-7) Lab Interpretation Abnormal (test code = 09165-5) [facility] URINALYSIS W SPECIFIC [id number] 22:31:00 Test Item Value Reference Range Interpretation Comments POCT U SP GRAV (test code = 3255) . 1.005-1.025 POCT PH U (test code = 3254) . 5-8 POCT U LEUK EST (test code = 3263) . Negative - Negative POCT U NIT (test code = 3262) . Negative - Negative POCT U PROT (test code = 3259) 1+ Negative - Negative POCT U GLU (test code = 3256) Neg Negative - Negative POCT U KETONE (test code = 3258) . Negative - Negative POCT U UROBILI (test code = 3260) . 0.2-1 POCT U BILI (test code = 3261) . Negative - Negative POCT U BLD (test code = 3257) . Negative - Negative POCT U COLOR (test code = 3266) . POCT U APPEAR (test code = 3267) . [facility] URINALYSIS W SPECIFIC [id number] 22:38:00 Test Item Value Reference Range Interpretation Comments POCT U SP GRAV (test code = 3255) . 1.005-1.025 POCT PH U (test code = 3254) . 5-8 POCT U LEUK EST (test code = 3263) . Negative - Negative POCT U NIT (test code = 3262) . Negative - Negative POCT U PROT (test code = 3259) Trace Negative - Negative POCT U GLU (test code = 3256) Trace Negative - Negative POCT U KETONE (test code = 3258) . Negative - Negative POCT U UROBILI (test code = 3260) . 0.2-1 POCT U BILI (test code = 3261) . Negative - Negative POCT U BLD (test code = 3257) . Negative - Negative POCT U COLOR (test code = 3266) . POCT U APPEAR (test code = 3267) [facility] URINALYSIS W SPECIFIC [id number] 16:55:00 Test Item Value Reference Range Interpretation Comments POCT U SP GRAV (test code = 3255) . 1.005-1.025 POCT PH U (test code = 3254) . 5-8 POCT U LEUK EST (test code = 3263) . Negative - Negative POCT U NIT (test code = 3262) . Negative - Negative POCT U PROT (test code = 3259) Trace Negative - Negative POCT U GLU (test code = 3256) Neg Negative - Negative POCT U KETONE (test code = 3258) . Negative - Negative POCT U UROBILI (test code = 3260) . 0.2-1 POCT U BILI (test code = 3261) . Negative - Negative POCT U BLD (test code = 3257) . Negative - Negative POCT U COLOR (test code = 3266) . POCT U APPEAR (test code = 3267) . [facility] SPECIFIC [id number] 21:57:00 Test Item Value Reference Range Interpretation Comments POCT U SP GRAV (test code = 3255) . 1.005-1.025 POCT PH U (test code = 3254) 5 mg/dl 5-8 POCT U LEUK EST (test code = 2+ Negative - Negative 3263) POCT U NIT (test code = 3262) Neg Negative - Negative POCT U PROT (test code = 3259) Trace Negative - Negative POCT U GLU (test code = 3256) Neg Negative - Negative POCT U KETONE (test code = 3258) None Negative - Negative POCT U UROBILI (test code = 3260) . 0.2-1 POCT U BILI (test code = 3261) . Negative - Negative POCT U BLD (test code = 3257) Trace Negative - Negative POCT U COLOR (test code = 3266) POCT U APPEAR (test code = 3267) [facility] 1 HOUR POST [id number] 09:22:21 Test Item Value Reference Range Interpretation Comments GLUC 1 HR (test code = 0382841083) 129 mg/dL 120-170 Lab Interpretation (test code = Normal 87994-0) [facility] WITH [id number] 08:50:16 Test Item Value Reference Range Interpretation Comments WBC (test code = See_Comment H [Automated 2090-2) message] The sy stem which generated this result transmitted reference range : 4.30 - 11.10 10*3/?L. The reference range was not used to interpret this result as normal/abnormal . RBC (test code = See_Comment L [Automated 799-8) message] The sy stem which generated this result transmitted reference range : 3.93 - 5.25 10*6/?L. The reference range was not used to interpret this result as normal/abnormal . HGB (test code = 10.1 g/dL 11.6-15.0 L 718-7) HCT (test code = 32.4 % 35.7-45.2 L 4544-3) MCV (test code = 83.7 fL 80.6-95.5 787-2) MCH (test code = 26.1 pg 25.9-32.8 785-6) MCHC (test code = 31.2 g/dL 31.6-35.1 L 786-4) RDW-SD (test code = 44.1 fL 39.0-49.9 96191-4) RDW-CV (test code = 14.6 % 12.0-15.5 788-0) PLT (test code = See_Comment [Automated 777-3) message] The sy stem which generated this result transmitted reference range : 166 - 358 10*3/ ?L. The reference r malorie was not used to interpret this result as normal/abnormal . MPV (test code = 11.5 fL 9.5-12.9 40766-1) NRBC/100 WBC (test See_Comment [Automat ed code = 6569898678) message] The system which generated this result transmitted reference range : 0.0 - 10.0 /100 WBCs. The refer ence range was not u sed to interpret th is result as normal/abnormal . NRBC x10^3 (test code See_Comment [Auto mated = 8284309199) message] The s ystem which generated this result transmitted reference range : 10*3/?L. The reference range was not used to interpret this result as normal/abnormal . GRAN MAT (NEUT) % 74.5 % (test code = 770-8) IMM GRAN % (test code 0.70 % = 0640441125) LYMPH % (test code = 16.6 % 736-9) MONO % (test code = 3.6 % 5905-5) EOS % (test code = 3.9 % 713-8) BASO % (test code = 0.7 % 706-2) GRAN MAT x10^3(ANC) 9.22 10*3/uL 1.88-7.09 H (test code = 2107815956) IMM GRAN x10^3 (test 0.09 10*3/uL 0.00-0.06 H code = 8381203022) LYMPH x10^3 (test code 2.05 10*3/uL 1.32-3.29 = 731-0) MONO x10^3 (test code 0.45 10*3/uL 0.33-0.92 = 742-7) EOS x10^3 (test code = 0.48 10*3/uL 0.03-0.39 H 711-2) BASO x10^3 (test code 0.09 10*3/uL 0.01-0.07 H = 704-7) Lab Interpretation Abnormal (test code = 10896-9) [facility] URINALYSIS W SPECIFIC [id number] 22:14:00 Test Item Value Reference Range Interpretation Comments POCT U SP GRAV (test code = 3255) . 1.005-1.025 POCT PH U (test code = 3254) 6 mg/dl 5-8 POCT U LEUK EST (test code = Trace Negative - Negative 3263) POCT U NIT (test code = 3262) Neg Negative - Negative POCT U PROT (test code = 3259) Trace Negative - Negative POCT U GLU (test code = 3256) 1+ Negative - Negative POCT U KETONE (test code = 3258) Small Negative - Negative POCT U UROBILI (test code = 3260) . 0.2-1 POCT U BILI (test code = 3261) . Negative - Negative POCT U BLD (test code = 3257) Trace Negative - Negative POCT U COLOR (test code = 3266) POCT U APPEAR (test code = 3267) [facility] URINALYSIS W SPECIFIC [id number] 21:32:00 Test Item Value Reference Range Interpretation Comments POCT U SP GRAV (test code = 3255) . 1.005-1.025 POCT PH U (test code = 3254) . 5-8 POCT U LEUK EST (test code = 3263) . Negative - Negative POCT U NIT (test code = 3262) . Negative - Negative POCT U PROT (test code = 3259) Trace Negative - Negative POCT U GLU (test code = 3256) Neg Negative - Negative POCT U KETONE (test code = 3258) . Negative - Negative POCT U UROBILI (test code = 3260) . 0.2-1 POCT U BILI (test code = 3261) . Negative - Negative POCT U BLD (test code = 3257) . Negative - Negative POCT U COLOR (test code = 3266) . POCT U APPEAR (test code = 3267) [facility] URINALYSIS W SPECIFIC [id number] 20:57:00 Test Item Value Reference Range Interpretation Comments POCT U SP GRAV (test code = 3255) . 1.005-1.025 POCT PH U (test code = 3254) 5 mg/dl 5-8 POCT U LEUK EST (test code = 2+ Negative - Negative 3263) POCT U NIT (test code = 3262) Neg Negative - Negative POCT U PROT (test code = 3259) Trace Negative - Negative POCT U GLU (test code = 3256) Neg Negative - Negative POCT U KETONE (test code = 3258) Neg Negative - Negative POCT U UROBILI (test code = 3260) . 0.2-1 POCT U BILI (test code = 3261) . Negative - Negative POCT U BLD (test code = 3257) Trace Negative - Negative POCT U COLOR (test code = 3266) . POCT U APPEAR (test code = 3267) . [facility] URINALYSIS W SPECIFIC [id number] 20:57:00 Test Item Value Reference Range Interpretation Comments POCT U SP GRAV (test code = 3255) . 1.005-1.025 POCT PH U (test code = 3254) 5 mg/dl 5-8 POCT U LEUK EST (test code = 2+ Negative - Negative 3263) POCT U NIT (test code = 3262) Neg Negative - Negative POCT U PROT (test code = 3259) Trace Negative - Negative POCT U GLU (test code = 3256) Neg Negative - Negative POCT U KETONE (test code = 3258) Neg Negative - Negative POCT U UROBILI (test code = 3260) . 0.2-1 POCT U BILI (test code = 3261) . Negative - Negative POCT U BLD (test code = 3257) Trace Negative - Negative POCT U COLOR (test code = 3266) . POCT U APPEAR (test code = 3267) . [facility] SPECIFIC [id number] 20:57:00 Test Item Value Reference Range Interpretation Comments POCT U SP GRAV (test code = 3255) . 1.005-1.025 POCT PH U (test code = 3254) 5 mg/dl 5-8 POCT U LEUK EST (test code = 2+ Negative - Negative 3263) POCT U NIT (test code = 3262) Neg Negative - Negative POCT U PROT (test code = 3259) Trace Negative - Negative POCT U GLU (test code = 3256) Neg Negative - Negative POCT U KETONE (test code = 3258) Neg Negative - Negative POCT U UROBILI (test code = 3260) . 0.2-1 POCT U BILI (test code = 3261) . Negative - Negative POCT U BLD (test code = 3257) Trace Negative - Negative POCT U COLOR (test code = 3266) . POCT U APPEAR (test code = 3267) . [facility] URINALYSIS W SPECIFIC [id number] 20:05:00 Test Item Value Reference Range Interpretation Comments POCT U SP GRAV (test code = . 1.005-1.025 3255) POCT PH U (test code = 3254) . 5-8 POCT U LEUK EST (test code = . Negative - Negative 3263) POCT U NIT (test code = 3262) . Negative - Negative POCT U PROT (test code = 3259) trace Negative - Negative POCT U GLU (test code = 3256) negative Negative - Negative POCT U KETONE (test code = 3258) . Negative - Negative POCT U UROBILI (test code = . 0.2-1 3260) POCT U BILI (test code = 3261) . Negative - Negative POCT U BLD (test code = 3257) . Negative - Negative POCT U COLOR (test code = 3266) POCT U APPEAR (test code = 3267) [facility]
[2023-05-01] MEDS ORDERED: DIAZEPAM 5 MG TABLET ONE (23:25)
[2023-05-01] MEDS ORDERED: NA CHLORIDE 0.9% 1,000 ML ONE (23:25)
[2023-05-01] MEDS ORDERED: FENTANYL CITR 100 MCG/2 ML ONE (23:25)
[2023-05-01] MEDS ORDERED: ONDANSETRON 4 MG/2 ML VIAL ONE (23:28)
[2023-05-02 00:30] LABS: Protime INR 1.12
[2023-05-02 00:31] LABS: Absolute Lymphocytes (CBC) 1.2 K/uL (0.7-4.9); Hematocrit 31.1 % (36.0-45.0); Lymphocytes % 5.3 % (15.3-44.8); MCV 86.4 fL (80-100); MPV 9.4 fL (7.6-11.3); Platelets 290 thou/uL (152-406)
[2023-05-02 00:44] LABS: Albumin 3.5 g/dL (3.4-5.0); Bilirubin Total 0.7 mg/dL (0.2-1.0); Potassium 4.1 mEq/L (3.5-5.1); Protein, Total 6.6 g/dL (6.4-8.2)
[2023-05-02] MEDS ORDERED: NA CHLORIDE 0.9% 100 ML ONE (01:40)
[2023-05-02] MEDS ORDERED: CEFAZOLIN SODIUM 1 GM/VIAL ONE (01:41)
[2023-05-02] MEDS ORDERED: NA CHLORIDE 0.9% 1,000 ML ONE (01:41)
[2023-05-02 01:48] LABS: Blood Morphology Comment NOT SEEN (NOT SEEN); Platelet Estimate ADEQ
[2023-05-02] MEDS ORDERED: NA CHLORIDE 0.9% 500 ML ONE (02:58)
[2023-05-02] MEDS ORDERED: AMOX/K CLAV 875 MG TAB ONE (02:58)
[2023-05-02 03:33] LABS: Absolute Lymphocytes (CBC) 0.7 K/uL (0.7-4.9); Hematocrit 15.7 % (36.0-45.0); Lymphocytes % 7.5 % (15.3-44.8); MCV 88.9 fL (80-100); MPV 8.9 fL (7.6-11.3); Platelets 142 thou/uL (152-406); RBC Red Blood Cell Count 1.77 M/uL (3.86-4.86)
[2023-05-02 04:20] LABS: Absolute Lymphocytes (CBC) 1.7 K/uL (0.7-4.9); Hematocrit 29.7 % (36.0-45.0); Lymphocytes % 10.5 % (15.3-44.8); MCV 87.3 fL (80-100); Platelets 252 thou/uL (152-406)
--- NOTE | 2023-05-02 04:26 | ER ---
Nurse's Notes [facility] Name: Slime Gold Age: 22 yrs Sex: Female : 2000 Arrival Date: 05/01/2023 Time: 22:39 Bed 13 Private MD: Diagnosis: Displacement of breast prosthesis and implant, initial encounter-post surgical pain;Elevated white blood cell count;Bandemia Presentation: 05/01 22:40 Chief complaint: Patient states: HAD A MOMMY MAKE OVER SURGERY TODAY. STATES SHE WAS jj7 GETTING UP OFF THE COUCH AND HER WAS HELPING HER BY PULLING HER UP BY HER ARMS AND SHE FELT A SHIFT IN HER RIGHT BREAST AND SHARP PAIN. WAS TOLD NOT TO LEFT HER ARMS ABOVE HER HEAD. EMS states: PAIN IN RIGHT BREAST AFTER BREAST AUGMENTATION. Coronavirus screen: At this time, the client does not indicate any symptoms associated with coronavirus-19. Ebola Screen: No symptoms or risks identified at this time. Initial Sepsis Screen: Does the patient meet any 2 criteria? HR > 90 bpm. Does the patient have a suspected source of infection? No. Patient's initial sepsis screen is negative. Risk Assessment: Do you want to hurt yourself or someone else? Patient reports no desire to harm self or others. Onset of symptoms was May 01, 2023. 22:40 Method Of Arrival: EMS: [facility] j7 22:40 Acuity: TAMIKO 3 jj7 Triage Assessment: 22:52 General: Appears in no apparent distress. uncomfortable, Behavior is calm, cooperative, jj7 appropriate for age. Pain: Complains of pain in right breast Pain currently is 10 out of 10 on a pain scale. 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 - Social history:: Smoking status: Patient denies any tobacco usage or history of. Patient/guardian denies using alcohol, street drugs. - Family history:: not pertinent. Screenin:02 [facility] ED Fall Risk Assessment (Adult) History of falling in the last 3 months, jj7 including since admission No falls in past 3 months (0 pts) Confusion or Disorientation No (0 pts) Intoxicated or Sedated Yes (3 pts) Impaired Gait No (0 pts) Mobility Assist Device Used No (0 pt) Altered Elimination No (0 pt) Score/Fall Risk Level 0 - 2 = Low Risk Oriented to surroundings, Maintained a safe environment, Educated pt \T\ family on fall prevention, incl call for assistance when getting out of bed. Abuse screen: Denies threats or abuse. Nutritional screening: No deficits noted. Tuberculosis screening: No symptoms or risk factors identified. Assessment: 23:02 Reassessment: SEE TRIAGE ASSESSMENT. jj7 Vital Signs: 22:40 BP 125 / 82; Pulse 102; Resp 20; Temp 99.5; Pulse Ox 99% ; Weight 65.77 kg; Height 5 j7 ft. 0 in. ; Pain 10/10; 05/02 00:00 BP 119 / 92; Pulse 92; Resp 16; Pulse Ox 97% ; Pain 1/10; jj7 01:00 BP 124 / 83; Pulse 92; Resp 17; Pulse Ox 99% ; Pain 0/10; jj7 02:00 BP 101 / 78; Pulse 107; Resp 19; Pulse Ox 100% ; Pain 0/10; j7 03:00 BP 103 / 78; Pulse 105; Resp 15; Pulse Ox 100% ; j7 04:01 BP 125 / 87; Pulse 98; Resp 16; Pulse Ox 100% ; jj7 04:58 BP 128 / 90; Pulse 94; Resp 16; Pulse Ox 99% ; jj7 05/01 22:40 Body Mass Index 28.32 (65.77 kg, 152.4 cm) j7 05/01 22:40 Pain Scale: Adult jj7 05/02 00:00 Pain Scale: Adult jj7 01:00 Pain Scale: Adult jj7 02:00 Pain Scale: Adult jj7 ED Course: 05/01 22:42 Patient arrived in ED. rv1 22:47 Judy Anderson RN is Primary Nurse. jj7 22:48 Armand Anderson MD is Attending Physician. [facility] 22:52 Triage completed. jj7 22:52 Arm band placed on right wrist. jj7 23:02 Patient has correct armband on for positive identification. Call light in reach. Side jj7 rails up X 1. Side rails up X2. Adult w/ patient. 23:47 Chest Single View XRAY In Process Unspecified. EDMS 23:50 Inserted saline lock: 20 gauge in right hand, using aseptic technique. Blood collected. jj7 05/02 00:00 Inserted saline lock: 20 gauge in right antecubital area, using aseptic technique. jj7 00:12 CBC with Diff Sent. jj7 00:12 Comprehensive Metabolic Panel Sent. jj7 00:59 Lactate w/ 2H reflex if indic. Sent. jj7 00:59 Blood Culture Adult (2) Sent. jj7 00:59 Manual Differential Sent. jj7 01:29 CT Chest For PE Angio In Process Unspecified. EDMS 01:29 CT Abd/Pelvis - IV Contrast Only In Process Unspecified. EDMS 03:18 CBC with Diff: 245am Sent. jj7 04:51 No provider procedures requiring assistance completed. IV discontinued, intact, jj7 bleeding controlled, No redness/swelling at site. Pressure dressing applied. 05:01 Provided Education on: PAIN MANAGEMENT. jj7 06:07 Primary Nurse role handed off by Judy Anderson, RN rv1 Administered Medications: 05/01 23:40 Drug: Diazepam PO 10 mg PO once Route: PO; jj7 05/02 04:31 Follow up: Response: No adverse reaction j7 00:00 Drug: fentaNYL (PF) IVP 50 mcg IVP once Route: IVP; Site: right hand; jj7 00:30 Follow up: Response: Marked relief of symptoms j7 00:00 Drug: Ondansetron IVP 4 mg IVP once; over 2 minutes Route: IVP; Site: right hand; jj7 00:30 Follow up: Response: Marked relief of symptoms j7 00:07 Drug: NS 0.9% IV 1000 ml IV at 1 bolus Per protocol; 1000 mL bolus Route: IV; Rate: 1 jj7 bolus; Site: right antecubital; 01:41 Follow up: IV Status: Completed infusion jj7 01:41 Drug: NS 0.9% IV 1000 ml IV at 1 bolus Per protocol; 1000 mL bolus Route: IV; Rate: 1 jj7 bolus; Site: right hand; 02:47 Follow up: IV Status: Completed infusion jj7 01:41 Drug: ceFAZolin IVPB 2 grams IVPB once over 30 mins; (mix in 100 mL NS) Route: IVPB; jj7 Infused Over: 30 mins; Site: right antecubital; 02:19 Follow up: IV Status: Completed infusion jj7 03:00 Drug: NS 0.9% IV 500 ml IV at bolus once Route: IV; Rate: bolus; Site: right jj7 antecubital; 05:00 Follow up: IV Status: Completed infusion j7 03:00 Drug: Amoxicillin-Clavulanate PO 875 mg PO once Route: PO; jj7 04:30 Follow up: Response: No adverse reaction jj7 03:00 Drug: fentaNYL (PF) IVP 50 mcg IVP once Route: IVP; Site: right antecubital; jj7 03:15 Follow up: Response: Marked relief of symptoms jj7 04:29 Not Given (Patient Refused): ns 0.9% 1000 ml IV at 125 ml/hr continuous j7 Medication: 05/01 23:02 VIS not applicable for this client. jj7 Outcome: 05/02 04:25 Discharge ordered by MD. stanley 04:52 Discharged to home ambulatory, via wheelchair, with family, jj7 04:52 Condition: improved 04:52 Discharge instructions given to patient, family, Instructed on discharge instructions, follow up and referral plans. medication usage, Demonstrated understanding of instructions, follow-up care, medications, Prescriptions given X 2, 05:13 Patient left the ED. jj7 06:21 Patient left the ED. as6 Signatures: Dispatcher [employer] EDID Armand Anderson MD MD cha Slawson, Ashby RN RN as6 Judy Anderson RN RN jj7 Kaur Jacobo Cristina
--- NOTE | 2023-05-02 04:26 | EDPHYS ---
Physician Documentation [facility] Name: Slime Gold Age: 22 yrs Sex: Female : 2000 Arrival Date: 05/01/2023 Time: 22:39 Bed 13 Private MD: ED Physician Armand Anderson HPI: 05/01 23:08 This 22 yrs old Female presents to ER via EMS with complaints of mommy lizeth makeover , right breast pain. 23:08 The patient or guardian reports chest pain that is located primarily in the anterior lizeth chest wall, right. The patient presents with abdominal pain in the upper abdomen, in the lower abdomen. Onset: The symptoms/episode began/occurred just prior to arrival. The symptoms do not radiate. The patient or guardian reports chest pain that is located primarily in the anterior chest wall. The chest pain is described as sharp. 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 - Social history:: Smoking status: Patient denies any tobacco usage or history of. Patient/guardian denies using alcohol, street drugs. - Family history:: not pertinent. ROS: 23:08 Constitutional: Negative for fever, chills, and weight loss, Eyes: Negative for injury, lizeth pain, redness, and discharge, ENT: Negative for injury, pain, and discharge, Neck: Negative for injury, pain, and swelling, Respiratory: Negative for shortness of breath, cough, wheezing, and pleuritic chest pain, Abdomen/GI: Negative for abdominal pain, nausea, vomiting, diarrhea, and constipation, Back: Negative for injury and pain, : Negative for injury, bleeding, discharge, and swelling, MS/Extremity: Negative for injury and deformity, Skin: Negative for injury, rash, and discoloration, Neuro: Negative for headache, weakness, numbness, tingling, and seizure, Psych: Negative for depression, anxiety, suicide ideation, homicidal ideation, and hallucinations, Allergy/Immunology: Negative for hives, rash, and allergies, Endocrine: Negative for neck swelling, polydipsia, polyuria, polyphagia, and marked weight changes, Hematologic/Lymphatic: Negative for swollen nodes, abnormal bleeding, and unusual bruising, 23:08 Cardiovascular: Positive for chest pain, of the right clavicle, anterior aspect of right upper chest and right breast, Exam: 23:08 Constitutional: This is a well developed, well nourished patient who is awake, alert, lizeth and in no acute distress. Head/Face: Normocephalic, atraumatic. Eyes: Pupils equal round and reactive to light, extra-ocular motions intact. Lids and lashes normal. Conjunctiva and sclera are non-icteric and not injected. Cornea within normal limits. Periorbital areas with no swelling, redness, or edema. ENT: Nares patent. No nasal discharge, no septal abnormalities noted. Tympanic membranes are normal and external auditory canals are clear. Oropharynx with no redness, swelling, or masses, exudates, or evidence of obstruction, uvula midline. Mucous membranes moist. Neck: Trachea midline, no thyromegaly or masses palpated, and no cervical lymphadenopathy. Supple, full range of motion without nuchal rigidity, or vertebral point tenderness. No Meningismus. Cardiovascular: Regular rate and rhythm with a normal S1 and S2. No gallops, murmurs, or rubs. Normal PMI, no JVD. No pulse deficits. Respiratory: Lungs have equal breath sounds bilaterally, clear to auscultation and percussion. No rales, rhonchi or wheezes noted. No increased work of breathing, no retractions or nasal flaring. Abdomen/GI: Soft, non-tender, with normal bowel sounds. No distension or tympany. No guarding or rebound. No evidence of tenderness throughout. Back: No spinal tenderness. No costovertebral tenderness. Full range of motion. Skin: Warm, dry with normal turgor. Normal color with no rashes, no lesions, and no evidence of cellulitis. MS/ Extremity: Pulses equal, no cyanosis. Neurovascular intact. Full, normal range of motion. Neuro: Awake and alert, GCS 15, oriented to person, place, time, and situation. Cranial nerves II-XII grossly intact. Motor strength 5/5 in all extremities. Sensory grossly intact. Cerebellar exam normal. Normal gait. Psych: Awake, alert, with orientation to person, place and time. Behavior, mood, and affect are within normal limits. 23:08 Chest/axilla: Inspection: no acute changes, Palpation: tenderness, that is moderate, of the right clavicle, anterior aspect of right upper chest and right breast, Axilla: swelling , no crepitus, 23:08 Cardiovascular: Rate: tachycardic, actual rate is 102 bpm, Rhythm: regular, Pulses: Pulses are 4+ in bilateral radial, brachial, femoral, popliteal, posterior tibial and and dorsalis pedis arteries.. Heart sounds: normal, normal S1and S2, no S3 or S4, no murmur, no rub, no gallop, Edema: is not appreciated, JVD: is not appreciated, 23:08 Musculoskeletal/extremity: DVT Exam: No signs of deep vein thrombosis. no pain, no swelling, no tenderness, negative Homans' sign noted on exam, no appreciated bluish discoloration, no erythema, no increased warmth, Vital Signs: 22:40 BP 125 / 82; Pulse 102; Resp 20; Temp 99.5; Pulse Ox 99% ; Weight 65.77 kg; Height 5 jj7 ft. 0 in. ; Pain 10/10; 05/02 00:00 BP 119 / 92; Pulse 92; Resp 16; Pulse Ox 97% ; Pain 1/10; j7 01:00 BP 124 / 83; Pulse 92; Resp 17; Pulse Ox 99% ; Pain 0/10; [facility] 02:00 BP 101 / 78; Pulse 107; Resp 19; Pulse Ox 100% ; Pain 0/10; [facility] 03:00 BP 103 / 78; Pulse 105; Resp 15; Pulse Ox 100% ; [facility] 04:01 BP 125 / 87; Pulse 98; Resp 16; Pulse Ox 100% ; [facility] 04:58 BP 128 / 90; Pulse 94; Resp 16; Pulse Ox 99% ; 7 05/01 22:40 Body Mass Index 28.32 (65.77 kg, 152.4 cm) [facility] 05/01 22:40 Pain Scale: Adult j7 05/02 00:00 Pain Scale: Adult 7 01:00 Pain Scale: Adult [facility] 02:00 Pain Scale: Adult 7 MDM: 05/01 22:48 Patient medically screened. [facility] 23:16 Differential diagnosis: abnormal EKG, chest wall pain, Cholelithiasis costochondritis, lizeth gastritis, hiatal hernia, pancreatitis, pneumonia, pulmonary embolus. HEART Score: History: Slightly Suspicious (0), ECG: Normal (0), Age: < or = 45 years (0), Risk Factors: No Risk Factors Known (0). DELIA Risk Score: TOTAL SCORE = 0. Data reviewed: vital signs, nurses notes, lab test result(s), EKG, radiologic studies, CT scan, plain films. Data reviewed: EMS record. Consideration of Admission/Observation Escalation of care including admission/observation considered. I considered the following discharge prescriptions or medication management in the emergency department Medications were administered in the Emergency Department. See MAR. Independent interpretation of the following test(s) in the Emergency Department EKG: See my EKG interpretation above X-Ray: My interpretation is no ptx. Test considered but Not performed: MRI: no mri chest. Historians other than the Patient: EMS: ems well in formed. Care significantly affected by the following chronic conditions: anxiety. 05/01 23:03 Order name: CBC with Diff; Complete Time: 01:49 [facility] 05/01 23:03 Order name: Comprehensive Metabolic Panel; Complete Time: 00:50 [facility] 05/01 23:03 Order name: Test, Serum; Complete Time: 00:50 [facility] 05/01 23:03 Order name: PT-INR; Complete Time: 00:38 [facility] 05/02 00:35 Order name: Manual Differential; Complete Time: 01:49 [facility] 05/02 00:40 Order name: Blood Culture Adult (2) [facility] 05/02 00:40 Order name: Lactate w/ 2H reflex if indic.; Complete Time: 01:49 [facility] 05/02 01:57 Order name: CBC with Diff: 245am; Complete Time: 03:42 [facility] 05/02 04:17 Order name: CBC with Automated Diff; Complete Time: 04:24 [facility] 05/02 04:39 Order name: Lactate Sepsis 2 HR Follow-up; Complete Time: 04:40 [facility] 05/01 23:03 Order name: CT Chest For PE Angio [facility] 05/01 23:03 Order name: CT Abd/Pelvis - IV Contrast Only [facility] 05/01 23:22 Order name: Chest Single View XRAY lizeth Administered Medications: 23:40 Drug: Diazepam PO 10 mg PO once Route: PO; 7 05/02 04:31 Follow up: Response: No adverse reaction 00:00 Drug: fentaNYL (PF) IVP 50 mcg IVP once Route: IVP; Site: right hand; j7 00:30 Follow up: Response: Marked relief of symptoms 00:00 Drug: Ondansetron IVP 4 mg IVP once; over 2 minutes Route: IVP; Site: right hand; j7 00:30 Follow up: Response: Marked relief of symptoms 00:07 Drug: NS 0.9% IV 1000 ml IV at 1 bolus Per protocol; 1000 mL bolus Route: IV; Rate: 1 jj7 bolus; Site: right antecubital; 01:41 Follow up: IV Status: Completed infusion 01:41 Drug: NS 0.9% IV 1000 ml IV at 1 bolus Per protocol; 1000 mL bolus Route: IV; Rate: 1 jj7 bolus; Site: right hand; 02:47 Follow up: IV Status: Completed infusion 01:41 Drug: ceFAZolin IVPB 2 grams IVPB once over 30 mins; (mix in 100 mL NS) Route: IVPB; jj7 Infused Over: 30 mins; Site: right antecubital; 02:19 Follow up: IV Status: Completed infusion 03:00 Drug: NS 0.9% IV 500 ml IV at bolus once Route: IV; Rate: bolus; Site: right jj7 antecubital; 05:00 Follow up: IV Status: Completed infusion 03:00 Drug: Amoxicillin-Clavulanate PO 875 mg PO once Route: PO; 7 04:30 Follow up: Response: No adverse reaction 03:00 Drug: fentaNYL (PF) IVP 50 mcg IVP once Route: IVP; Site: right antecubital; j7 03:15 Follow up: Response: Marked relief of symptoms j 04:29 Not Given (Patient Refused): ns 0.9% 1000 ml IV at 125 ml/hr continuous jj7 Disposition Summary: 05/02/23 04:25 Discharge Ordered Notes: Location: Home lizeth Problem: new lizeth Condition: Stable lizeth Diagnosis - Displacement of breast prosthesis and implant, initial encounter - post surgical lizeth pain - Elevated white blood cell count lizeth - Bandemia lizeth Followup: lizeth - With: Private Physician - When: 1 - 2 days - Reason: Recheck today's complaints, Continuance of care, Re-evaluation by your physician Discharge Instructions: - Discharge Summary Sheet lizeth - Chest Wall Pain lizeth - Chest Wall Pain, Hgei-dw-Ofiw lizeth - Leukocytosis lizeth - Breast Augmentation, Care After lizeth - Breast Augmentation [facility] Forms: - Medication Reconciliation Form [facility] - Thank You Letter lizeth - Antibiotic Education lizeth - Prescription Opioid Use lizeth - Patient Portal Instructions [facility] - Leadership Thank You Letter [facility] Prescriptions: - acetaminophen-codeine 300-30 mg Oral tablet - take 2 tablet ORAL route every 6 hours as needed for pain; 20 tablet; Refills: lizeth 0, Product Selection Permitted - Augmentin 875-125 mg Oral Tablet - take 1 tablet ORAL route every 12 hours for 10 days; 20 tablet; Refills: 0, lizeth Product Selection Permitted Signatures: Dispatcher [employer] Armand Bui MD MD cha Johnson, Juwairiyah RN RN jj7
[2023-05-02 05:39] VITALS: TEMP 99.5
[2023-05-02 05:46] VITALS: BP 128/90; O2SAT 99
--- NOTE | 2023-05-03 11:03 | RAD REPORT ---
EXAM DESCRIPTION: CT - Abdomen Pelvis W Contrast - 05/02/2023 6:39 am CLINICAL HISTORY: ABD PAIN COMPARISON: None. TECHNIQUE: CT ABDOMEN PELVIS WITH IV CONTRAST on 05/01/2023 11:03 PM NEW MEDIA STRATEGIST This exam was performed according to our departmental dose-optimization program, which includes autom ated exposure control, adjustment of the mA and/or kV according to patient size and/or use of iterati ve reconstruction technique. FINDINGS: Lower lungs are clear. Abdomen: Liver is fatty in attenuation. There is no biliary dilatation. The gallbladder is normal in appearance. The pancreas and spleen are normal in appearance. The adrenal glands and kidneys are unre markable. Abdominal aorta is normal in course and caliber without aneurysm. There is no free air. There is no r etroperitoneal adenopathy. There is extensive subcutaneous air throughout the abdominal wall diffusel y. Pelvis: There is no bowel obstruction. Urinary bladder is unremarkable. There is no free fluid. Uteru s is normal in size. Appendix is not clearly seen but there is no pericecal inflammation. Skeleton: There are no acute osseous findings. No suspicious bony lesions. IMPRESSION: No acute inflammatory process within the abdomen or pelvis. Extensive subcutaneous air throughout the abdominal wall. Electronically signed by: Jae Tong MD 05/02/2023 02:55 AM NEW MEDIA STRATEGIST Due to temporary technical issues with the PACS/Fluency reporting system, reports are being signed by the in house radiologist without review as a courtesy to ensure prompt reporting. The interpreting r adiologist is fully responsible for the content of the report.
--- NOTE | 2023-05-03 11:06 | RAD REPORT ---
EXAM DESCRIPTION: CT - Chest For Pe Angio - 05/02/2023 6:39 am CLINICAL HISTORY: Abdominal distention;Chest pain COMPARISON: None. TECHNIQUE: CT CHEST ANGIOGRAPHY WITH IV CONTRAST on 05/01/2023 11:03 PM FAMILY PRACTICE DOCTOR. MIPS reconstructions wer e generated. This exam was performed according to our departmental dose-optimization program, which includes autom ated exposure control, adjustment of the mA and/or kV according to patient size and/or use of iterati ve reconstruction technique. MIP images were generated. FINDINGS: Thoracic aorta is normal in course and caliber without aneurysm or dissection. Pulmonary a rteries are adequately opacified without acute or chronic filling defects. The heart is normal in size. There is no pericardial effusion. Intrathoracic lymph nodes are not enla rged. Bilateral breast implants are present. There is extensive subcutaneous air throughout the anter ior chest wall. There is no pleural effusion, pleural thickening or pneumothorax. Central airways are patent. There i s bibasilar atelectasis. Upper abdomen is reported separately. There are no acute osseous findings. No suspicious bony lesio ns. IMPRESSION: No aortic dissection or aneurysm. No pulmonary embolus. Extensive subcutaneous air within the anterior chest wall. Electronically signed by: Jae Tong MD 05/02/2023 02:49 AM FAMILY PRACTICE DOCTOR Due to temporary technical issues with the PACS/Fluency reporting system, reports are being signed by the in house radiologist without review as a courtesy to ensure prompt reporting. The interpreting r adiologist is fully responsible for the content of the report.
--- NOTE | 2023-05-03 11:20 | RAD REPORT ---
EXAM DESCRIPTION: RAD - Chest Single View - 05/01/2023 11:45 pm CLINICAL HISTORY: DYSPNEA COMPARISON: None. TECHNIQUE: XR CHEST 1 VIEW 05/01/2023 11:22 PM PARTS CATALOGER FINDINGS: Cardiac silhouette is normal in size. Lungs are clear without consolidation, atelectasis, mass or edema. There is no pleural effusion. There is no pneumothorax. There are no acute osseous fin dings. IMPRESSION: Clear lungs. Electronically signed by: Jae Tong MD 05/02/2023 02:55 AM PARTS CATALOGER Due to temporary technical issues with the PACS/Fluency reporting system, reports are being signed by the in house radiologist without review as a courtesy to ensure prompt reporting. The interpreting r adiologist is fully responsible for the content of the report.
== END 2023-05-02 06:21 | disposition home or self-care (01) ==
LOC: ER 22:39
DX: T85.42XA Displacement of breast prosthesis and implant, initial encounter (principal); D72.825 Bandemia; Z98.82 Breast implant status
CPT/HCPCS: 36415; 71045; 71275; 74177; 80053; 83605; 84703; 85025; 85610; 87040; 99284; J0690; J2405; J3010; J7030; J7040; Q9967